=== PATIENT | female | born 1990 | race Caucasian/White ===

== ENCOUNTER 2018-01-14 09:58 | Inpatient (IN) | payer MEDICAID ==
[2018-01-14 11:10] VITALS: BP 130/93
[2018-01-14 11:14] LABS: URINE SOURCE CATH
[2018-01-14 11:22] LABS: URINE BILIRUBIN SMALL (NEGATIVE); URINE BLOOD MODERATE (NEGATIVE); URINE GLUCOSE (UA) NEGATIVE (NEGATIVE); URINE KETONE NEGATIVE (NEGATIVE); URINE LEUKOCYTE ESTERASE NEGATIVE (NEGATIVE); URINE MICROSCOPIC INDICATED? YES; URINE NITRATE POSITIVE (NEGATIVE); URINE PH 7.5 (4.6 - 8.0); URINE PROTEIN >=300 mg/dL (NEGATIVE); URINE UROBILINOGEN 0.2 E.U./dL (0.2 - 1.0)
[2018-01-14 11:23] LABS: ALB/GLOB RATIO 0.8 (1.0-1.8); ALBUMIN 3.5 gm/dL (3.7-5.3); ALKALINE PHOSPHATASE 216 U/L (34-104); AMYLASE SERUM 22 U/L (29-103); ANION GAP 10.6 (7.0-16.0); BILIRUBIN,TOTAL 1.7 mg/dL (0.3-1.0); BUN - UREA NITROGEN 33 mg/dL (7-25); CALCIUM SERUM 9.9 mg/dL (8.6-10.3); CARBON DIOXIDE 33.9 mEq/L (21.0-31.0); CHLORIDE 93 mEq/L (98-107); GFR AFRICAN-AMERICAN > 60.0 ml/min (>90); GFR NON AFRICAN-AMERICAN > 60.0 ml/min; GLUCOSE 208 mg/dL (70-105); LIPASE 6 U/L (11-82); POTASSIUM SERUM 4.5 mEq/L (3.5-5.1); SGOT 19 U/L (13-39); SGPT/ALT 19 U/L (7-52); SODIUM SERUM 133 mEq/L (136-145); TOTAL PROTEIN,SERUM 7.7 gm/dL (6.0-8.3)
[2018-01-14 11:38] LABS: AMPHETAMINE URINE NEGATIVE (NEGATIVE); BARBITURATES URINE NEGATIVE (NEGATIVE); BENZODIAZEPINES QUAL URINE NEGATIVE (NEGATIVE); CANNABINOID THC NEGATIVE (NEGATIVE); COCAINE METABOLITE QUAL URINE NEGATIVE (NEGATIVE); METHADONE URINE NEGATIVE (NEGATIVE); METHAMPHETAMINES QUAL URINE NEGATIVE (NEGATIVE); OPIATES (MORPHINE) QUAL. URINE NEGATIVE (NEGATIVE); PHENCYCLIDINE (PCP) URINE NEGATIVE (NEGATIVE); TRICYCLICS (TCA) QUAL. URINE NEGATIVE (NEGATIVE)
[2018-01-14] MEDS ORDERED: Sodium Chloride 0.9% 1,000 ML IV ONE (11:46)
[2018-01-14 11:50] LABS: URINE CLARITY HAZY (CLEAR)
[2018-01-14 11:51] LABS: URINE COLOR YELLOW; URINE RBC 0-2 /hpf (0-5)
[2018-01-14 11:52] LABS: URINE BACTERIA MODERATE /hpf (NONE SEEN); URINE EPITHELIAL CELLS MODERATE /lpf (FEW)
[2018-01-14 11:56] LABS: HEMATOCRIT 55.8 % (41.0-60); MEAN CELL VOLUME 86.7 fl (81-100); MEAN CORPUSCULAR HGB CONC 32.3 pg (28.0-36.0); MEAN PLATELET VOLUME 9.1 fl; PLATELET COUNT 203 Th/cmm (150-400); RED BLOOD COUNT 6.43 Mil/cmm (3.80-5.10); RED CELL DISTRIBUTION WIDTH 17.2 % (11.5-20.0); WHITE BLOOD COUNT 6.3 Th/cmm (4.8-10.8)
[2018-01-14] MEDS ORDERED: Piperacillin Sodium/Tazobact 3.375 gm Vial IV ONE (12:14)
--- NOTE | 2018-01-14 12:17 | ED Physician Chart ---
ED Chief Complaint/HPI - Patient Information Date Seen:: 01/14/18 Time Seen:: 10:59 Chief Complaint:: nausea, vomiting, diarrhea History of Present Illness:: nausea, vomiting, diarrhea in a diabetic female with a h/o EBSL and c.diff. Allergies:: Allergies Allergy/AdvReac Type Severity Reaction Status Date / Time No Known Allergies Allergy Verified 01/14/18 10:35 Vitals:: Vital Signs - 8 hr 01/14/18 01/14/18 01/14/18 10:59 11:09 11:10 Temp 98.7 F 98.7 F HR 85 85 RR 18 18 BP 130/93 130/93 130/93 O2 Sat % 99 95 Historian:: Patient, EMS, Medical Records Review:: Transfer documents Reviewed ED Review of Systems - Review of Systems General/Constitutional: No fever, No chills, No weight loss, No weakness, No diaphoresis, No edema, No loss of appetite Skin: No skin lesions, No rash, No bruising Head: No headache, No light-headedness Eyes: No loss of vision, No pain, No diplopia ENT: No earache, No nasal drainage, No sore throat, No tinnitus Neck: No neck pain, No swelling, No thyromegaly, No stiffness, No mass noted Cardio Vascular: No chest pain, No palpitations, No PND, No orthopnea, No edema Pulmonary: No SOB, No cough, No sputum, No wheezing GI: Nausea, Vomiting, Diarrhea G/U: No dysuria, No frequency, No hematuria Musculoskeletal: No bone or joint pain, No back pain, No muscle pain Endocrine: No polyuria, No polydipsia Psychiatric: No prior psych history, No depression, No anxiety, No suicidal ideation Hematopoietic: No bruising, No lymphadenopathy Allergic/Immuno: No urticaria, No angioedema Neurological: No syncope, No focal symptoms, Weakness, No paresthesia, No headache, No seizure, No dizziness, No confusion, No vertigo ED Past Medical History - Past Medical History Obtainable: Yes Past Medical History: DM, CAD Family Medical History - Family Member Mother Living Status: Still Living Hx Family Diabetes: Yes ED Physical Exam - Physical Examination General/Constitutional: Awake Other Gen/Cons comments:: pale and jaundiced appearing. Chronically ill appearing. Head: Atraumatic Eyes: Lids, conjuctiva normal, PERRL, EOMI Other Skin comments:: pale and jaundiced appearing. from mid tibia to feet (cool to the touch) and possibly faint mottling present. Hard to see secondary to dark skin color. R 4th toe with partial amputation (well healed) L knee with abrasion/scab--healing slowly. no s/s of infection slightly dry oral mucous membranes. ENMT: External ears, nose nl Neck: Nontender, No nuchal rigidity Respiratory: Nl effort/Exclusion, Clear to Auscultation Cardio Vascular: RRR GI: No tenderness/rebounding/guarding, No organomegaly, No hernia, Normal BS's, Nondistended, No mass/bruits, No McBurney tenderness : No CVA tenderness Extremities: Full ROM, normal strength in all extremities, No edema Other Extremities comments:: pale and jaundiced appearing. from mid tibia to feet (cool to the touch) and possibly faint mottling present. Hard to see secondary to dark skin color. R 4th toe with partial amputation (well healed) L knee with abrasion/scab--healing slowly. no s/s of infection Neuro/Psych: Alert/oriented, Normal motor strength, Judgement/insight normal, Mood normal, No focal deficits Misc: Normal back ED Labs/Radiology/EKG Results - Lab Results Results: Laboratory Tests 01/14/18 01/14/18 01/14/18 10:23 10:37 10:37 WBC RBC Hgb Hct MCV MCH MCHC Differential RDW Plt Count MPV Add Manual Diff Sodium Potassium Chloride Carbon Dioxide Anion Gap BUN Creatinine Est GFR ( Amer) Est GFR (Non-Af Amer) BUN/Creatinine Ratio Glucose POC Glucose 231 H Calcium Total Bilirubin AST ALT Alkaline Phosphatase Total Protein Albumin Globulin Albumin/Globulin Ratio Amylase Lipase Urine Source CATH Urine Color YELLOW Urine Clarity HAZY Urine pH 7.5 Ur Specific Divide 1.020 Urine Protein >=300 Urine Glucose (UA) NEGATIVE Urine Ketones NEGATIVE Urine Blood MODERATE H Urine Nitrate POSITIVE H Urine Bilirubin SMALL H Urine Urobilinogen 0.2 Ur Leukocyte Esterase NEGATIVE Urine RBC 0-2 Urine WBC 6-10 H Ur Epithelial Cells MODERATE Urine Bacteria MODERATE H Urine Test POC Ur Test Urine Opiates Screen NEGATIVE Urine Methadone Screen NEGATIVE Ur Barbiturates Screen NEGATIVE Ur Tricyclics Screen NEGATIVE Ur Phencyclidine Scrn NEGATIVE Amphetamines Screen NEGATIVE U Methamphetamines Scrn NEGATIVE U Benzodiazepines Scrn NEGATIVE U Cocaine Metab Screen NEGATIVE U Cannabinoids Screen NEGATIVE 01/14/18 01/14/18 01/14/18 10:55 10:55 11:16 WBC 6.3 RBC 6.43 H Hgb 18.0 Hct 55.8 MCV 86.7 MCH 28.0 MCHC Differential 32.3 RDW 17.2 Plt Count 203 MPV 9.1 Add Manual Diff YES Sodium 133 L Potassium 4.5 Chloride 93 L Carbon Dioxide 33.9 H Anion Gap 10.6 BUN 33 H Creatinine 1.0 Est GFR ( Amer) > 60.0 Est GFR (Non-Af Amer) > 60.0 BUN/Creatinine Ratio 33.0 Glucose 208 H POC Glucose Calcium 9.9 Total Bilirubin 1.7 H AST 19 ALT 19 Alkaline Phosphatase 216 H Total Protein 7.7 Albumin 3.5 L Globulin 4.2 Albumin/Globulin Ratio 0.8 L Amylase 22 L Lipase 6 L Urine Source Urine Color Urine Clarity Urine pH Ur Specific Divide Urine Protein Urine Glucose (UA) Urine Ketones Urine Blood Urine Nitrate Urine Bilirubin Urine Urobilinogen Ur Leukocyte Esterase Urine RBC Urine WBC Ur Epithelial Cells Urine Bacteria Urine Test POC Ur Test Negative Urine Opiates Screen Urine Methadone Screen Ur Barbiturates Screen Ur Tricyclics Screen Ur Phencyclidine Scrn Amphetamines Screen U Methamphetamines Scrn U Benzodiazepines Scrn U Cocaine Metab Screen U Cannabinoids Screen 01/14/18 11:19 WBC RBC Hgb Hct MCV MCH MCHC Differential RDW Plt Count MPV Add Manual Diff Sodium Potassium Chloride Carbon Dioxide Anion Gap BUN Creatinine Est GFR ( Amer) Est GFR (Non-Af Amer) BUN/Creatinine Ratio Glucose POC Glucose Calcium Total Bilirubin AST ALT Alkaline Phosphatase Total Protein Albumin Globulin Albumin/Globulin Ratio Amylase Lipase Urine Source Urine Color Urine Clarity Urine pH Ur Specific Divide Urine Protein Urine Glucose (UA) Urine Ketones Urine Blood Urine Nitrate Urine Bilirubin Urine Urobilinogen Ur Leukocyte Esterase Urine RBC Urine WBC Ur Epithelial Cells Urine Bacteria Urine Test NEGATIVE POC Ur Test Urine Opiates Screen Urine Methadone Screen Ur Barbiturates Screen Ur Tricyclics Screen Ur Phencyclidine Scrn Amphetamines Screen U Methamphetamines Scrn U Benzodiazepines Scrn U Cocaine Metab Screen U Cannabinoids Screen ED Assessment - Assessment General Assessment: EKG from 12:05:56 p.m. reveals normal sinus rhythm with a flipped t wave in AVL , AVR. CXR from my reading reveals cardiomegaly. ED Septic Shock - . Is Septic Shock (SBP<90, OR Lactate>4 mmol\L) present?: No - <6hrs of presentation: Vital Signs: Vital Signs - 8 hr 01/14/18 01/14/18 01/14/18 10:59 11:09 11:10 Temp 98.7 F 98.7 F HR 85 85 RR 18 18 BP 130/93 130/93 130/93 O2 Sat % 99 95 ED Reassessment (Disposition) - Reassessment Reassessment Condition:: Improved - Diagnosis Diagnosis:: Chronically ill appearing female diabetic urinary tract infection dehydration cardiomegaly with elevated BNP (suspected very low ejection fraction) peripheral vascular disease with slow healing superficial left knee wound and healed R 4th toe amputation site hypothyroidism (not presently on corrective medication) hyponatremia low chloride elevated bilirubin - Patient Disposition Discharge/Transfer:: Acute Care w/in this hosp Accepting Physician:: Dr. Christine Time Called:: 12:58 p.m. Admitted to:: Telemetry Condition at Disposition:: Stable, Improved
--- NOTE | 2018-01-14 13:00 | Diagnostic Imaging Report ---
Chest x-ray (single view, AP) HISTORY: Shortness of breath The heart is enlarged. A cardiac electrode lead wire projects over the right ventricle. No focal pulmonary processes. No hilar or mediastinal abnormalities. IMPRESSION: 1. No acute abnormalities 2. Cardiomegaly with electrode lead wire placement
[2018-01-14 13:21] LABS: BAND NEUTROPHILE 0 % (0-10); LYMPHOCYTE 10 % (20-50); MONOCYTE 5 % (2-10); NEUTROPHILS 85 % (40-80); PLATELET ESTIMATE ADEQUATE (NORMAL)
[2018-01-14] MEDS: Meropenem 500 MG in Sodium Chloride 0.9% 100 ML IV SCH (23:10)
[2018-01-15] MEDS ORDERED: INSULIN ASPART SLIDING SCALE 100 UNITS/ML UNIT SUBQ SCH
[2018-01-15 03:27] LABS: URINE SOURCE CLEAN C
[2018-01-15 03:31] LABS: URINE BILIRUBIN NEGATIVE (NEGATIVE); URINE BLOOD MODERATE (NEGATIVE); URINE GLUCOSE (UA) >=1000 mg/dL (NEGATIVE); URINE KETONE NEGATIVE (NEGATIVE); URINE LEUKOCYTE ESTERASE NEGATIVE (NEGATIVE); URINE MICROSCOPIC INDICATED? YES; URINE NITRATE NEGATIVE (NEGATIVE); URINE PH 6.5 (4.6 - 8.0); URINE PROTEIN >=300 mg/dL (NEGATIVE)
[2018-01-15 04:59] LABS: URINE CLARITY CLEAR (CLEAR); URINE COLOR YELLOW
[2018-01-15 05:00] LABS: URINE BACTERIA FEW /hpf (NONE SEEN); URINE EPITHELIAL CELLS FEW /lpf (FEW); URINE YEAST FEW /hpf (NONE SEEN)
[2018-01-15] MEDS: Meropenem 500 MG in Sodium Chloride 0.9% 100 ML IV SCH ×3 (06:21→22:21)
[2018-01-15 06:49] LABS: % EOSINOPHILS 1.5 % (0.0-5.0); % LYMPHOCYTES 12.6 % (20.0-50.0); % MONOCYTES 8.1 % (2.0-10.0); % NEUTROPHILS 76.8 % (40.0-80.0); BASOPHILE ABSOLUTE 0.1 Th/cumm (0-0.2); EOSINOPHILE ABSOLUTE 0.1 Th/cmm (0.1-0.4); HEMATOCRIT 51.4 % (41.0-60); HEMOGLOBIN 16.9 gm/dL (12-16); MEAN CELL VOLUME 85.7 fl (81-100); MEAN CORPUSCULAR HEMOGLOBIN 28.2 pg (27.0-31.0); MEAN CORPUSCULAR HGB CONC 32.9 pg (28.0-36.0); MEAN PLATELET VOLUME 8.9 fl; MONOCYTE ABSOLUTE 0.6 Th/cmm (0.3-1.0); NEUTROPHILE ABSOLUTE 5.8 Th/cmm (1.8-8.0); PLATELET COUNT 183 Th/cmm (150-400); RED BLOOD COUNT 5.99 Mil/cmm (3.80-5.10); RED CELL DISTRIBUTION WIDTH 17.1 % (11.5-20.0)
[2018-01-15 06:50] LABS: WHITE BLOOD COUNT 7.6 Th/cmm (4.8-10.8)
[2018-01-15 07:56] LABS: ALB/GLOB RATIO 0.8 (1.0-1.8); ALBUMIN 3.2 gm/dL (3.7-5.3); ALKALINE PHOSPHATASE 238 U/L (34-104); ANION GAP 20.1 (7.0-16.0); BILIRUBIN,TOTAL 1.5 mg/dL (0.3-1.0); BUN - UREA NITROGEN 35 mg/dL (7-25); CALCIUM SERUM 9.1 mg/dL (8.6-10.3); CARBON DIOXIDE 19.5 mEq/L (21.0-31.0); CHLORIDE 99 mEq/L (98-107); CREATININE - SERUM 1.2 mg/dL (0.6-1.2); GFR AFRICAN-AMERICAN > 60.0 ml/min (>90); GFR NON AFRICAN-AMERICAN 56.5 ml/min; POTASSIUM SERUM 4.6 mEq/L (3.5-5.1); SGOT 15 U/L (13-39); SGPT/ALT 16 U/L (7-52); SODIUM SERUM 134 mEq/L (136-145)
[2018-01-15] MEDS ORDERED: INSULIN HUMAN REGULAR 100 UNITS/ML UNIT SUBQ SCH (08:00)
[2018-01-15 08:12] LABS: GLUCOSE 290 mg/dL (70-105)
[2018-01-15] MEDS: Aspirin 81mg Chewable Tab PO SCH (09:21)
[2018-01-15] MEDS: INSULIN ASPART SLIDING SCALE 100 UNITS/ML UNIT SUBQ SCH ×3 (09:21→18:13)
[2018-01-15] MEDS: Pantoprazole 40 mg EC Tab PO SCH (09:23)
--- NOTE | 2018-01-15 11:45 | History & Physical ---
ADMIT DATE: 01/15/2018 CHIEF COMPLAINT: Nausea, vomiting and diarrhea. HISTORY OF PRESENT ILLNESS: This is a 27-year-old female who was admitted from [place] facility through the Emergency Room of [facility] due to nausea, vomiting, and diarrhea and altered level of consciousness. REVIEW OF SYSTEMS: The patient was seen at bedside. The patient asleep, refusing to answer questions. Otherwise, patient appears to be in no acute distress. SOCIAL HISTORY: The patient lives in a [place] [facility] [place] facility prior to hospitalization. FAMILY HISTORY: Unremarkable. PAST SURGICAL HISTORY: Unremarkable. PAST MEDICAL HISTORY: Significant for diabetes and hypertension. PHYSICAL EXAMINATION: VITAL SIGNS: Temperature 97, heart rate 93, blood pressure 105/51, respiration of 18, 97% on room air. HEENT: Head is atraumatic and normocephalic. Eyes: Bilateral conjunctivae are clear. Bilateral pupils are equally round and reactive. NECK: Supple. No JVD. CARDIOVASCULAR: S1 and S2, without murmur. PULMONARY: Clear to auscultation. GASTROINTESTINAL: Soft and nontender without guarding. Positive bowel sounds. MUSCULOSKELETAL: No clubbing. No cyanosis noted. ASSESSMENT: 1. Right lower lobe pneumonia. 2. History of Clostridium difficile. 3. Diabetes. PLAN: We will admit the patient inpatient. We will do medication reconciliation accordingly. We will monitor her blood tests and repeat blood test in the morning. Treatment plans were discussed with the patient's nurse. Treatment plans were discussed with Dr. Christine. JOB# [id number]
[2018-01-15] MEDS: D5-0.45NS 1,000 ML IV SCH (16:07)
[2018-01-16] MEDS: INSULIN ASPART SLIDING SCALE 100 UNITS/ML UNIT SUBQ SCH ×5 (00:19→23:51)
--- NOTE | 2018-01-16 01:00 | Consultation ---
DATE OF CONSULTATION: 01/14/2018 AGE: 27. SEX: Female. RACE: . REQUESTING PHYSICIAN: Dr. Christine. REASON FOR CONSULTATION: Elevated BUN and creatinine and some kidney dysfunction. HISTORY OF PRESENT ILLNESS: This patient has been brought in from [facility] because of reasons not clear, but some altered level of consciousness, "history of congestive heart failure," history of heart problem with the pacemaker reasons not known. Also, the history obtained by calling the mother from here, which was not available because the patient is not arousable and does not give any history, that the patient had been using drugs about 5 years ago and maybe longer, type of drugs is not very clearly known, but she was definitely using crack and some other drugs. The patient has a child about 2 years old. The patient does have much more tattooed things on the arms and hands, tried to arouse her at present, not able to do it. The patient is sound asleep could not wake her up, she may be a little bit obese. At present there is no edema noticed. Jugular venous pressure clinically, is not raised. PHYSICAL EXAMINATION: VITAL SIGNS: Temperature is 97.0 degrees Fahrenheit, blood pressure 105/51, heart rate 93, O2 saturation 97. GENERAL: The patient is not on any oxygen. CHEST: Reveals good air entry bilaterally. CARDIOVASCULAR: Heart sounds, S1, S2 normally heard. No S3 or S4 noticed. ABDOMEN: Rather large much more difficult to examine any further. No other significant findings noticed on physical examination, which would ascertain anything else. The patient came to the Emergency Room yesterday, was started on meropenem for UTI, which probably she had because of the fact that it was positive for urine nitrites. The patient was checked for drugs in the urine, which was negative. The patient was shouting yesterday night, was given some Ativan and maybe that is the fact that she is not arousable at present. Very significant findings on the chemistries yesterday were patient's electrolytes were sodium 133, potassium 4.5, chloride 93, CO2 content 33.9, BUN 33, creatinine 1.0, calcium 9.9, total bilirubin 1.7, albumin 3.5, globulin 4.2. TSH 7.26. The patient's hemoglobin yesterday was 18 grams percent with WBC 6.3. Today's hemoglobin reveals 16.9 with a WBC count of 7.6. The patient's medicines reviewed. The patient is on multiple diuretics reasons not known which include Lasix, Bumex and Aldactone need to be discontinued. Otherwise, the patient would get much more decrease in water and concentrated hemoglobin, which can give rise to other problems. From renal point of view there is not much to be done at least at the present time except discontinuing all these 3 diuretics and to give some more IV fluids. Clinically, at present, the patient is not in congestive heart failure in spite of the fact that BNP is high, it could be due to other reasons, need to evaluate further clinically both by menagerie superintendent and the need for other management. More history need to be also obtained. [facility]# [id number]
--- NOTE | 2018-01-16 01:56 | Consultation ---
DATE OF CONSULTATION: 01/15/[address] Christine. 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 The patient also had a cardiopulmonary arrest with AICD placement. The patient at the present time is complaining of nausea, vomiting, and diarrhea. The patient was found to have a right lower lobe pneumonia and hence, the patient is admitted. PAST MEDICAL HISTORY: Congestive heart failure, systolic dysfunction, nonischemic cardiomyopathy, left ventricular thrombus, cardiac arrest with AICD placement, deep venous thrombosis, methamphetamine addict, anxiety, and diabetes mellitus type 2. FAMILY HISTORY: Unremarkable. SOCIAL HISTORY: No history of smoking, alcohol abuse. ALLERGIES: No known allergies. SOCIAL HISTORY: The patient is methamphetamine addict. PHYSICAL EXAMINATION: VITAL SIGNS: Blood pressure 110/70, pulse 80 and irregular, and respirations 28. HEAD: Normocephalic. No lumps or bumps. EYES: Pupils equal, reactive to light. Fundi show AV nicking, sclerae white, conjunctivae pink. NECK: Carotid 2+. Normal upstroke. JVD 10 cm above sternal angle. Thyroid not palpable. Lymph nodes not palpable. CHEST: Shows increased AP diameter. No kyphosis, scoliosis. LUNGS: Bilateral rales. Decreased breath sounds both the bases. HEART: PMI sixth intercostal space with lateral to midclavicular line. S1, S2, S3, S4, soft systolic murmur. ABDOMEN: Soft. Liver, spleen not palpable. No organomegaly. Bowel sounds active. Hepatojugular reflux positive. NEUROLOGIC: Unremarkable. EXTREMITIES: Peripheral pulses 1+. No pedal edema. CLINICAL IMPRESSION: Congestive heart failure, systolic dysfunction, acute on chronic; nonischemic cardiomyopathy; right lower lobe pneumonia; left ventricular thrombus; cardiac arrest, status post AICD placement; deep venous thrombosis; methamphetamine addict; anxiety; and diabetes mellitus type 2. PLAN: At the present time, we will continue the patient on IV antibiotics, diuretics preload afterload reduction, Also get an echocardiogram. The patient's last echocardiogram showed ejection fraction 10%-15%. JOB# [id number]
--- NOTE | 2018-01-16 02:44 | Consultation ---
DATE OF CONSULTATION: 01/14/2018 IDENTIFYING INFORMATION: The patient is a 27-year-old female. CHIEF COMPLAINT: I was asked to see as she has a history of bipolar disorder. HISTORY OF PRESENT ILLNESS: The patient was admitted from a halfway facility through Emergency Room at [facility] because of nausea, vomiting, diarrhea, and altered level of consciousness. The patient was asleep, refusing to answer questions. The patient apparently was living in a halfway facility; however, she was not a very good historian. She told me that she is single, never , but has one child and she misses her baby. She was crying when I talked to her, unable to tell me why she was in a nursing facility. She reports that she lives with her mother. She reports that she has been depressed for a week. She misses her baby. She reports sleep and appetite varies. She does not know why she is here. The patient also has lower lobe pneumonia with Clostridium difficile and diabetes. The patient denies substance abuse. PAST PSYCHIATRIC HISTORY: The patient denies prior psychiatric treatment; however, she is not a good historian. According to her history, she has a history of bipolar disorder. MEDICAL HISTORY: She has no known drug allergy. The patient is admitted because of nausea, vomiting, diarrhea, and pneumonia. MEDICATIONS: The patient is on insulin, Lasix, aspirin, Bumex, Coreg, clonidine as needed, lisinopril, and Ativan for agitation. FAMILY AND SOCIAL HISTORY: The patient is single, never , has one boy, 1-year of age; however, that is an unreliable information as she reports she misses her son; however, she lives in a nursing facility. She does not realize she lives in a nursing facility. Denies any family psychotic disorder, suicide or substance abuse. She reports she works at [employer]. MENTAL STATUS EXAMINATION: The patient is appropriately dressed, not very well groomed. She was crying. She was uncooperative. She kept talking about feeling depressed for the last week missing the baby. Her sleep and appetite varies. She denies any visual hallucinations. She denies any intent to harm herself. She reports she never tried to harm herself. Denies any paranoia. Denies any intent to harm anyone. Well, first she told me she was 27, when asked again, she said 23, so obviously she was confused. Insight and judgment are questionable. IMPRESSION: Rule out delirium secondary to her medical condition versus psychosis, not otherwise specified versus bipolar disorder. PLAN: 1. I would recommend to start the patient on Abilify to help with her confusion and psychosis. The patient obviously needs followup with her psychiatrist upon discharge. Thank you very much for allowing me to participate in the care of this most interesting lady. [facility]# [id number]
[2018-01-16 06:16] LABS: % BASOPHILS 3.5 % (0.0-2.0); % EOSINOPHILS 2.7 % (0.0-5.0); % LYMPHOCYTES 13.9 % (20.0-50.0); % MONOCYTES 7.6 % (2.0-10.0); % NEUTROPHILS 72.3 % (40.0-80.0); BASOPHILE ABSOLUTE 0.3 Th/cumm (0-0.2); EOSINOPHILE ABSOLUTE 0.2 Th/cmm (0.1-0.4); HEMATOCRIT 49.8 % (41.0-60); HEMOGLOBIN 15.6 gm/dL (12-16); MEAN CELL VOLUME 86.9 fl (81-100); MEAN CORPUSCULAR HEMOGLOBIN 27.2 pg (27.0-31.0); MEAN CORPUSCULAR HGB CONC 31.3 pg (28.0-36.0); MEAN PLATELET VOLUME 8.2 fl; MONOCYTE ABSOLUTE 0.5 Th/cmm (0.3-1.0); NEUTROPHILE ABSOLUTE 5.2 Th/cmm (1.8-8.0); PLATELET COUNT 183 Th/cmm (150-400); RED BLOOD COUNT 5.74 Mil/cmm (3.80-5.10); RED CELL DISTRIBUTION WIDTH 17.1 % (11.5-20.0); WHITE BLOOD COUNT 7.2 Th/cmm (4.8-10.8)
[2018-01-16] MEDS: Meropenem 500 MG in Sodium Chloride 0.9% 100 ML IV SCH ×3 (06:23→23:07)
[2018-01-16 06:28] LABS: ALB/GLOB RATIO 0.9 (1.0-1.8); ALBUMIN 2.9 gm/dL (3.7-5.3); ALKALINE PHOSPHATASE 194 U/L (34-104); ANION GAP 9.6 (7.0-16.0); BILIRUBIN,TOTAL 1.3 mg/dL (0.3-1.0); BUN - UREA NITROGEN 40 mg/dL (7-25); CALCIUM SERUM 8.7 mg/dL (8.6-10.3); CARBON DIOXIDE 27.9 mEq/L (21.0-31.0); CHLORIDE 101 mEq/L (98-107); CREATININE - SERUM 1.1 mg/dL (0.6-1.2); GFR AFRICAN-AMERICAN > 60.0 ml/min (>90); GFR NON AFRICAN-AMERICAN > 60.0 ml/min; GLUCOSE 134 mg/dL (70-105); POTASSIUM SERUM 4.5 mEq/L (3.5-5.1); SGOT 14 U/L (13-39); SGPT/ALT 17 U/L (7-52); SODIUM SERUM 134 mEq/L (136-145)
[2018-01-16] MEDS: Aspirin 81mg Chewable Tab PO SCH (10:06)
[2018-01-16] MEDS: Pantoprazole 40 mg EC Tab PO SCH (10:06)
--- NOTE | 2018-01-16 12:14 | Internal Medicine Prog Note ---
Internal Medicine Subjective - Subjective Patient is:: awake, other (no distress) Patient Complaints of:: other (nausea, dirrhea ) Internal Medicine Objective - Results Result Diagrams: 01/16/18 06:05 01/16/18 06:05 Recent Labs: Laboratory Last Values WBC 7.2 Th/cmm (4.8-10.8) 01/16/18 06:05 RBC 5.74 Mil/cmm (3.80-5.10) H 01/16/18 06:05 Hgb 15.6 gm/dL (12-16) 01/16/18 06:05 Hct 49.8 % (41.0-60) 01/16/18 06:05 MCV 86.9 fl (81-100) 01/16/18 06:05 MCH 27.2 pg (27.0-31.0) 01/16/18 06:05 MCHC Differential 31.3 pg (28.0-36.0) 01/16/18 06:05 RDW 17.1 % (11.5-20.0) 01/16/18 06:05 Plt Count 183 Th/cmm (150-400) 01/16/18 06:05 MPV 8.2 fl 01/16/18 06:05 Add Manual Diff YES 01/14/18 10:55 Neutrophils % 72.3 % (40.0-80.0) 01/16/18 06:05 Band Neutrophils % 0 % (0-10) 01/14/18 10:55 Lymphocytes % 13.9 % (20.0-50.0) L 01/16/18 06:05 Monocytes % 7.6 % (2.0-10.0) 01/16/18 06:05 Eosinophils % 2.7 % (0.0-5.0) 01/16/18 06:05 Basophils % 3.5 % (0.0-2.0) H 01/16/18 06:05 Neutrophils (Manual) 85 % (40-80) H 01/14/18 10:55 Lymphocytes 10 % (20-50) L 01/14/18 10:55 Monocytes 5 % (2-10) 01/14/18 10:55 Platelet Estimate ADEQUATE (NORMAL) 01/14/18 10:55 Sodium 134 mEq/L (136-145) L 01/16/18 06:05 Potassium 4.5 mEq/L (3.5-5.1) 01/16/18 06:05 Chloride 101 mEq/L (98-107) 01/16/18 06:05 Carbon Dioxide 27.9 mEq/L (21.0-31.0) 01/16/18 06:05 Anion Gap 9.6 (7.0-16.0) 01/16/18 06:05 BUN 40 mg/dL (7-25) H 01/16/18 06:05 Creatinine 1.1 mg/dL (0.6-1.2) 01/16/18 06:05 Est GFR ( Amer) > 60.0 ml/min (>90) 01/16/18 06:05 Est GFR (Non-Af Amer) > 60.0 ml/min 01/16/18 06:05 BUN/Creatinine Ratio 36.4 01/16/18 06:05 Glucose 134 mg/dL (70-105) H 01/16/18 06:05 POC Glucose 351 MG/DL (70 - 105) H 01/16/18 11:53 Whole Bld Lactic Acid 1.78 mmol/L (0.60-1.99) 01/14/18 10:55 Calcium 8.7 mg/dL (8.6-10.3) 01/16/18 06:05 Total Bilirubin 1.3 mg/dL (0.3-1.0) H 01/16/18 06:05 AST 14 U/L (13-39) 01/16/18 06:05 ALT 17 U/L (7-52) 01/16/18 06:05 Alkaline Phosphatase 194 U/L (34-104) H 01/16/18 06:05 Troponin I 0.02 ng/mL (0.01-0.05) 01/14/18 10:55 B-Natriuretic Peptide 1660.0 pg/mL (5.0-100.0) H 01/16/18 08:12 Total Protein 6.0 gm/dL (6.0-8.3) 01/16/18 06:05 Albumin 2.9 gm/dL (3.7-5.3) L 01/16/18 06:05 Globulin 3.1 gm/dL 01/16/18 06:05 Albumin/Globulin Ratio 0.9 (1.0-1.8) L 01/16/18 06:05 Amylase 22 U/L (29-103) L 01/14/18 10:55 Lipase 6 U/L (11-82) L 01/14/18 10:55 TSH 7.26 uIU/ml (0.34-5.60) H 01/14/18 10:55 Urine Source CLEAN C 01/15/18 02:55 Urine Color YELLOW 01/15/18 02:55 Urine Clarity CLEAR (CLEAR) 01/15/18 02:55 Urine pH 6.5 (4.6 - 8.0) 01/15/18 02:55 Ur Specific [place] 1.020 (1.005-1.030) 01/15/18 02:55 Urine Protein >=300 mg/dL (NEGATIVE) 01/15/18 02:55 Urine Glucose (UA) >=1000 mg/dL (NEGATIVE) H 01/15/18 02:55 Urine Ketones NEGATIVE mg/dL (NEGATIVE) 01/15/18 02:55 Urine Blood MODERATE (NEGATIVE) H 01/15/18 02:55 Urine Nitrate NEGATIVE (NEGATIVE) 01/15/18 02:55 Urine Bilirubin NEGATIVE (NEGATIVE) 01/15/18 02:55 Urine Urobilinogen 1.0 E.U./dL (0.2 - 1.0) 01/15/18 02:55 Ur Leukocyte Esterase NEGATIVE (NEGATIVE) 01/15/18 02:55 Urine RBC 5-10 /hpf (0-5) H 01/15/18 02:55 Urine WBC 2-5 /hpf (0-5) 01/15/18 02:55 Ur Epithelial Cells FEW /lpf (FEW) 01/15/18 02:55 Urine Bacteria FEW /hpf (NONE SEEN) 01/15/18 02:55 Urine Yeast FEW /hpf (NONE SEEN) H 01/15/18 02:55 Urine Test NEGATIVE 01/14/18 11:19 POC Ur Test Negative 01/14/18 11:16 Urine Opiates Screen NEGATIVE (NEGATIVE) 01/14/18 10:37 Urine Methadone Screen NEGATIVE (NEGATIVE) 01/14/18 10:37 Ur Barbiturates Screen NEGATIVE (NEGATIVE) 01/14/18 10:37 Ur Tricyclics Screen NEGATIVE (NEGATIVE) 01/14/18 10:37 Ur Phencyclidine Scrn NEGATIVE (NEGATIVE) 01/14/18 10:37 Amphetamines Screen NEGATIVE (NEGATIVE) 01/14/18 10:37 U Methamphetamines Scrn NEGATIVE (NEGATIVE) 01/14/18 10:37 U Benzodiazepines Scrn NEGATIVE (NEGATIVE) 01/14/18 10:37 U Cocaine Metab Screen NEGATIVE (NEGATIVE) 01/14/18 10:37 U Cannabinoids Screen NEGATIVE (NEGATIVE) 01/14/18 10:37 - Physical Exam Vitals and I&O: Vital Signs Temp 96.7 F 01/16/18 11:38 Pulse 93 01/16/18 11:38 Resp 18 01/16/18 12:10 BP 133/100 01/16/18 11:38 Pulse Ox 97 01/16/18 11:38 Intake & Output 01/15/18 01/16/18 01/16/18 18:59 06:59 18:59 Intake Total 200 1200 Balance 200 1200 Weight (lbs) 66.877 kg Intake: Intake, IV Amount 200 100 Meropenem 500 mg In 200 100 Sodium Chloride 0.9% 100 ml @ 100 mls/hr IV Q8H [facility] Rx#:[id number] Oral 1100 Other: # Voids 3 # Bowel Movements 1 Stool Characteristics Soft Soft Soft Formed Formed Formed Weight Source Bedscale Active Medications: Current Medications Acetaminophen (Tylenol) 650 mg PO Q4H PRN PRN Reason: Pain (Mild) Stop: 03/16/18 13:03 Last Admin: 01/16/18 07:51 Dose: 650 mg Aripiprazole (Abilify) 2.5 mg PO DAILY [facility]; Protocol Stop: 03/17/18 08:59 Last Admin: 01/16/18 10:05 Dose: 2.5 mg Aspirin (Aspirin Chewable) 81 mg PO DAILY [facility] Stop: 03/16/18 08:59 Last Admin: 01/16/18 10:06 Dose: 81 mg Carvedilol (Coreg) 3.125 mg PO BID [facility] Stop: 03/16/18 08:59 Last Admin: 01/16/18 10:06 Dose: 3.125 mg Meropenem 500 mg/ Sodium (Chloride) 100 mls @ 100 mls/hr IV Q8H [facility] Stop: 03/15/18 22:59 Last Admin: 01/16/18 06:23 Dose: 100 mls/hr Dextrose/Sodium Chloride (D5-0.45ns) 1,000 mls @ 50 mls/hr IV .Q20H [facility] Stop: 03/16/18 12:01 Last Admin: 01/15/18 16:07 Dose: 50 mls/hr Insulin Aspart (Novolog Insulin Sliding Scale) 0 units SUBQ Q6HR [facility]; Protocol Stop: 03/16/18 05:59 Last Admin: 01/16/18 11:56 Dose: 15 units Lisinopril (Zestril) 5 mg PO DAILY [facility] Stop: 03/16/18 08:59 Last Admin: 01/16/18 10:05 Dose: 5 mg Lorazepam (Ativan) 1 mg IVP Q4HR PRN; Protocol PRN Reason: Agitation Stop: 03/15/18 18:54 Last Admin: 01/16/18 11:29 Dose: 1 mg Pantoprazole Sodium (Protonix) 40 mg PO DAILY [facility] Stop: 03/16/18 08:59 Last Admin: 01/16/18 10:06 Dose: 40 mg Zolpidem Tartrate (Ambien) 5 mg PO HS PRN PRN Reason: Insomnia Stop: 03/15/18 18:54 Last Admin: 01/15/18 22:23 Dose: 5 mg General: weak, alert HEENT: NC/AT Neck: Supple Lungs: congested, rales, no CTAB Cardiovascular: Normal S1, Normal S2 Abdomen: soft, non-tender Extremities: clear Neurological: no change Internal Medicine Assmt/Plan - Assessment Assessment: pneumonia rll h/p clostridium dm - Plan Plan: as per order sheet
--- NOTE | 2018-01-16 14:16 | Progress Notes ---
DATE: 01/16/2018 SUBJECTIVE: Case was discussed with staff of the patient and reviewed records. The patient was crying uncontrollably today. She was unable to answer questions. I tried to get any information from her about why she was in a nursing facility. She could not answered me. She did not know where she was, while she is here she kept crying and she tell me why she was crying. She does have Ativan as needed, which will be given. I will be increasing her Abilify to [address] Black will follow up with her tomorrow. Thank you very much for allowing me to participate in the care of this most interesting lady. JOB# [id number]
[2018-01-16] MEDS: D5-0.45NS 1,000 ML IV SCH (17:27)
[2018-01-17 04:59] LABS: % BASOPHILS 3.6 % (0.0-2.0); % EOSINOPHILS 2.6 % (0.0-5.0); % LYMPHOCYTES 10.7 % (20.0-50.0); % MONOCYTES 5.7 % (2.0-10.0); % NEUTROPHILS 77.4 % (40.0-80.0); BASOPHILE ABSOLUTE 0.3 Th/cumm (0-0.2); EOSINOPHILE ABSOLUTE 0.2 Th/cmm (0.1-0.4); HEMATOCRIT 50.4 % (41.0-60); HEMOGLOBIN 16.2 gm/dL (12-16); LYMPHOCYTE ABSOLUTE 0.9 Th/cmm (1.5-3.0); MEAN CELL VOLUME 85.9 fl (81-100); MEAN CORPUSCULAR HEMOGLOBIN 27.7 pg (27.0-31.0); MEAN CORPUSCULAR HGB CONC 32.2 pg (28.0-36.0); MONOCYTE ABSOLUTE 0.5 Th/cmm (0.3-1.0); NEUTROPHILE ABSOLUTE 6.5 Th/cmm (1.8-8.0); PLATELET COUNT 180 Th/cmm (150-400); RED BLOOD COUNT 5.86 Mil/cmm (3.80-5.10); RED CELL DISTRIBUTION WIDTH 17.1 % (11.5-20.0); WHITE BLOOD COUNT 8.4 Th/cmm (4.8-10.8)
[2018-01-17 05:34] LABS: ALBUMIN 3.3 gm/dL (3.7-5.3); ALKALINE PHOSPHATASE 219 U/L (34-104); ANION GAP 11.5 (7.0-16.0); BILIRUBIN,TOTAL 1.5 mg/dL (0.3-1.0); BUN - UREA NITROGEN 39 mg/dL (7-25); CHLORIDE 97 mEq/L (98-107); CREATININE - SERUM 1.1 mg/dL (0.6-1.2); GFR AFRICAN-AMERICAN > 60.0 ml/min (>90); GFR NON AFRICAN-AMERICAN > 60.0 ml/min; GLUCOSE 126 mg/dL (70-105); POTASSIUM SERUM 4.5 mEq/L (3.5-5.1); SGOT 18 U/L (13-39); SGPT/ALT 18 U/L (7-52); SODIUM SERUM 131 mEq/L (136-145); TOTAL PROTEIN,SERUM 6.6 gm/dL (6.0-8.3)
[2018-01-17] MEDS: INSULIN ASPART SLIDING SCALE 100 UNITS/ML UNIT SUBQ SCH ×3 (06:06→17:30)
[2018-01-17] MEDS: Meropenem 500 MG in Sodium Chloride 0.9% 100 ML IV SCH (06:09)
[2018-01-17] MEDS: Pantoprazole 40 mg EC Tab PO SCH (10:47)
[2018-01-17] MEDS: Aspirin 81mg Chewable Tab PO SCH (10:47)
--- NOTE | 2018-01-17 13:13 | Consultation ---
Consult Note - Consult Note Service Date: 01/17/18 Referring Physician: Debora Christine Consult Note: PHYSICIAN Consultation Note: Date of Admission: 01/14/18 Purpose of Consultation: UTI. Chief Complaint: Patient WEN SCRUGGS was admitted to [facility] Telemetry with UTI, FTT, CARDIOMEGALY. History of Present Illness: 27-year-old female with history of CP arrest, cardiomyopathy with low Ef ( 10-15%), s/p PEA, AICD placement was diagnosed to have ESBL E coli infection. She was was treated at the [facility] and discharged to [facility]. Stooll for c diff was checked and C diff toxin PCr came positive. She was transferred to the [facility] ED for further treatment plan. ID consult was called and i was informed of ESBl E coli UTI. I did start the patient on Meropenem. Urine cultures are repeated and came negative. Patient denies any dysuria, denies any fever, chills, nausea , vomiting and diarrhea. Past Medical History: DMT2, CP arrest, cardiomyopathy with low Ef ( 10-15%), s/ p PEA, AICD placement ( at [facility]), Hypothyropidismm, CHF. Diagnoses HYPOTHYROIDISM, UNSPECIFIED (01/14/18) TYPE 2 DIABETES MELLITUS WITHOUT COMPLICATIONS (01/14/18) DEHYDRATION (01/14/18) HYPO-OSMOLALITY AND HYPONATREMIA (01/14/18) OTH DISORDERS OF ELECTROLYTE AND FLUID BALANCE, NEC (01/14/18) OTH STIMULANT USE, UNSP WITH UNSP STIMULANT-INDUCED DISORDER (01/14/18) CARDIOMYOPATHY, UNSPECIFIED (01/14/18) ACUTE ON CHRONIC SYSTOLIC (CONGESTIVE) HEART FAILURE (01/14/18) PNEUMONIA, UNSPECIFIED ORGANISM (01/14/18) URINARY TRACT INFECTION, SITE NOT SPECIFIED (01/14/18) WEAKNESS (01/14/18) PERSONAL HISTORY OF OTHER INFECTIOUS AND PARASITIC DISEASES (01/14/18) PERSONAL HISTORY OF SUDDEN CARDIAC ARREST (01/14/18) PRESENCE OF AUTOMATIC (IMPLANTABLE) CARDIAC DEFIBRILLATOR (01/14/18) Allergies Allergy/AdvReac Type Severity Reaction Status Date / Time No Known Allergies Allergy Verified 01/14/18 10:35 Vital Signs Temp 97.5 F 01/17/18 11:53 Pulse 83 01/17/18 11:53 Resp 18 01/17/18 11:53 BP 138/76 01/17/18 11:53 Pulse Ox 98 01/17/18 11:53 Intake & Output 01/16/18 01/17/18 01/17/18 18:59 06:59 18:59 Intake Total 1200 340 100 Balance 1200 340 100 Weight (lbs) 66.877 kg Intake: Intake, IV Amount 1200 100 100 D5-0.45NS 1,000 ml @ 50 1000 mls/hr IV .Q20H [facility] Rx#: [id number] Meropenem 500 mg In 200 100 100 Sodium Chloride 0.9% 100 ml @ 100 mls/hr IV Q8H [facility] Rx#:[id number] Oral 240 Other: Stool Characteristics Soft Soft Formed Formed Weight Source [facility] Laboratory Results - last 24 hr 01/16/18 01/16/18 01/17/18 17:02 23:14 04:50 WBC 8.4 RBC 5.86 H Hgb 16.2 Hct 50.4 MCV 85.9 MCH 27.7 MCHC Differential 32.2 RDW 17.1 Plt Count 180 MPV 8.0 Neutrophils % 77.4 Lymphocytes % 10.7 L Monocytes % 5.7 Eosinophils % 2.6 Basophils % 3.6 H Sodium Potassium Chloride Carbon Dioxide Anion Gap BUN Creatinine Est GFR ( Amer) Est GFR (Non-Af Amer) BUN/Creatinine Ratio Glucose POC Glucose 314 H 199 H Calcium Total Bilirubin AST ALT Alkaline Phosphatase Total Protein Albumin Globulin Albumin/Globulin Ratio 01/17/18 01/17/18 01/17/18 04:50 05:20 12:10 WBC RBC Hgb Hct MCV MCH MCHC Differential RDW Plt Count MPV Neutrophils % Lymphocytes % Monocytes % Eosinophils % Basophils % Sodium 131 L Potassium 4.5 Chloride 97 L Carbon Dioxide 27.0 Anion Gap 11.5 BUN 39 H Creatinine 1.1 Est GFR ( Amer) > 60.0 Est GFR (Non-Af Amer) > 60.0 BUN/Creatinine Ratio 35.5 Glucose 126 H POC Glucose 149 H 198 H Calcium 9.0 Total Bilirubin 1.5 H AST 18 ALT 18 Alkaline Phosphatase 219 H Total Protein 6.6 Albumin 3.3 L Globulin 3.3 Albumin/Globulin Ratio 1.0 Home Medication Medication Instructions Recorded Type Aspirin [Aspirin Chewable] 81 mg PO DAILY 01/14/18 History Bumetanide [Bumex] 1 mg PO BID 01/14/18 History Carvedilol [Coreg] 3.125 mg PO BID 01/14/18 History Clonidine HCl [Catapres] 0.1 mg PO Q6H PRN 01/14/18 History Insulin Regular, Human [Humulin R] See Protocol SQ TIDWM 01/14/18 History Lisinopril 5 mg PO DAILY 01/14/18 History Nitrofurantoin Monohydrate 100 mg PO BID 01/14/18 History [Macrobid*] Pantoprazole Sodium 40 mg PO DAILY 01/14/18 History Saccharomyces Boulardii [Florastor] 250 mg PO DAILY 01/14/18 History Spironolactone [Aldactone] 25 mg PO BID 01/14/18 History Zolpidem Tartrate 5 mg PO HS PRN 01/14/18 History metroNIDAZOLE [Flagyl] 500 mg PO TID 01/14/18 History Current Medications Generic Name Dose Route Start Last Admin Trade Name Freq PRN Reason Stop Dose Admin Acetaminophen 650 mg 01/15/18 13:04 01/16/18 20:03 Tylenol PO 03/16/18 13:03 650 mg Q4H PRN Administration Pain (Mild) Aripiprazole 5 mg 01/17/18 09:00 01/17/18 10:47 Abilify PO 03/18/18 08:59 5 mg DAILY [facility] Administration Protocol Aspirin 81 mg 01/15/18 09:00 01/17/18 10:47 Aspirin Chewable PO 03/16/18 08:59 81 mg DAILY [facility] Administration Carvedilol 3.125 mg 01/15/18 09:00 01/17/18 10:46 Coreg PO 03/16/18 08:59 3.125 mg BID [facility] Administration Meropenem 500 mg/ Sodium 100 mls @ 100 mls/hr 01/14/18 23:00 01/17/18 07:09 Chloride IV 03/15/18 22:59 Infused Q8H [facility] Infusion Dextrose/Sodium Chloride 1,000 mls @ 50 mls/hr 01/15/18 12:02 01/16/18 17:27 D5-0.45ns IV 03/16/18 12:01 50 mls/hr .Q20H [facility] Administration Insulin Aspart 0 units 01/15/18 06:00 01/17/18 12:17 Novolog Insulin Sliding Scale SUBQ 03/16/18 05:59 4 units Q6HR [facility] Administration Protocol Lactobacillus Rhamnosus 1 each 01/17/18 14:00 Culturelle 15b PO 03/18/18 13:59 DAILY [facility] Lisinopril 5 mg 01/15/18 09:00 01/17/18 10:47 Zestril PO 03/16/18 08:59 5 mg DAILY [facility] Administration Lorazepam 1 mg 01/14/18 18:55 01/17/18 00:38 Ativan IVP 03/15/18 18:54 1 mg Q4HR PRN Administration Agitation Protocol Pantoprazole Sodium 40 mg 01/15/18 09:00 01/17/18 10:47 Protonix PO 03/16/18 08:59 40 mg DAILY [facility] Administration Zolpidem Tartrate 5 mg 01/14/18 18:55 01/16/18 20:04 Ambien PO 03/15/18 18:54 5 mg HS PRN Administration Insomnia Review of Systems: A 12 point ROS was reviewed with the pertinent positive and negatives noted in the HPI. Social History Smoking Status Never smoker Drug Use No Alcohol Use No Family Medical History Family Medical History Start: 01/14/18 14: 45 Freq: ONCE Status: Active Protocol: Document 01/14/18 14:45 AIXA (Rec: 01/14/18 17:50 YPISRAEL [id number]) Family Medical History Mother History Unknown Yes Physical Exam: General: Comfortable, not in any acute distress. WN WD. HEENT: Head: NC NT. ORAL CAVITY: Moist, pink tongue. EYES: No pallor, no icterus , pupill PERRLA. EOMI. Neck: Supple, no JVD, no carotid bruit. No use of accessory neck muscle use. No lymphadenopathy. Cardio: S1 and S2 WNL. Respiratory: CTAP. Abdominal: Soft NT ND BS present. NO hepatosplenomegaly. Genital/Urinary: Deferred Extremities: NCCE. therar wuperficial wounds on the left elbow with erythema, left knee with erythema, right knee without erythema. Neurological: Alert awake, oriented x3, no focal weakness. Assessment: 1. C diff colitis, there is no diarrhea. 2, History of URI with ESBL positive organism. Urine cultures are negative. 3. Cellulitis and wound on the left elbow and left knee. 4. cardiomyopathy, with low EF, AICD placement,. 5. history of CP arrest. 6. DM T2. 7. hypothyroidism. Plan: DC meropenem. DC isolation. Continue flagyl for 10 days. start bactrim DS for cellulitis. wound care. Thank you Dr Christine for involvingm in taking care of this patient. Signed, Aman Martinez M.D. [id number]
[2018-01-17] MEDS: Lactobacillus Rhamnosus GG 15 Billion CFU CAP.SPRINK PO SCH (13:45)
--- NOTE | 2018-01-17 15:58 | Internal Medicine Prog Note ---
Internal Medicine Subjective - Subjective Patient is:: awake, other (no distress) Patient Complaints of:: other (nausea, dirrhea ) Internal Medicine Objective - Results Result Diagrams: 01/17/18 04:50 01/17/18 04:50 Recent Labs: Laboratory Last Values WBC 8.4 Th/cmm (4.8-10.8) 01/17/18 04:50 RBC 5.86 Mil/cmm (3.80-5.10) H 01/17/18 04:50 Hgb 16.2 gm/dL (12-16) 01/17/18 04:50 Hct 50.4 % (41.0-60) 01/17/18 04:50 MCV 85.9 fl (81-100) 01/17/18 04:50 MCH 27.7 pg (27.0-31.0) 01/17/18 04:50 MCHC Differential 32.2 pg (28.0-36.0) 01/17/18 04:50 RDW 17.1 % (11.5-20.0) 01/17/18 04:50 Plt Count 180 Th/cmm (150-400) 01/17/18 04:50 MPV 8.0 fl 01/17/18 04:50 Add Manual Diff YES 01/14/18 10:55 Neutrophils % 77.4 % (40.0-80.0) 01/17/18 04:50 Band Neutrophils % 0 % (0-10) 01/14/18 10:55 Lymphocytes % 10.7 % (20.0-50.0) L 01/17/18 04:50 Monocytes % 5.7 % (2.0-10.0) 01/17/18 04:50 Eosinophils % 2.6 % (0.0-5.0) 01/17/18 04:50 Basophils % 3.6 % (0.0-2.0) H 01/17/18 04:50 Neutrophils (Manual) 85 % (40-80) H 01/14/18 10:55 Lymphocytes 10 % (20-50) L 01/14/18 10:55 Monocytes 5 % (2-10) 01/14/18 10:55 Platelet Estimate ADEQUATE (NORMAL) 01/14/18 10:55 Sodium 131 mEq/L (136-145) L 01/17/18 04:50 Potassium 4.5 mEq/L (3.5-5.1) 01/17/18 04:50 Chloride 97 mEq/L (98-107) L 01/17/18 04:50 Carbon Dioxide 27.0 mEq/L (21.0-31.0) 01/17/18 04:50 Anion Gap 11.5 (7.0-16.0) 01/17/18 04:50 BUN 39 mg/dL (7-25) H 01/17/18 04:50 Creatinine 1.1 mg/dL (0.6-1.2) 01/17/18 04:50 Est GFR ( Amer) > 60.0 ml/min (>90) 01/17/18 04:50 Est GFR (Non-Af Amer) > 60.0 ml/min 01/17/18 04:50 BUN/Creatinine Ratio 35.5 01/17/18 04:50 Glucose 126 mg/dL (70-105) H 01/17/18 04:50 POC Glucose 198 MG/DL (70 - 105) H 01/17/18 12:10 Whole Bld Lactic Acid 1.78 mmol/L (0.60-1.99) 01/14/18 10:55 Calcium 9.0 mg/dL (8.6-10.3) 01/17/18 04:50 Total Bilirubin 1.5 mg/dL (0.3-1.0) H 01/17/18 04:50 AST 18 U/L (13-39) 01/17/18 04:50 ALT 18 U/L (7-52) 01/17/18 04:50 Alkaline Phosphatase 219 U/L (34-104) H 01/17/18 04:50 Troponin I 0.02 ng/mL (0.01-0.05) 01/14/18 10:55 B-Natriuretic Peptide 1660.0 pg/mL (5.0-100.0) H 01/16/18 08:12 Total Protein 6.6 gm/dL (6.0-8.3) 01/17/18 04:50 Albumin 3.3 gm/dL (3.7-5.3) L 01/17/18 04:50 Globulin 3.3 gm/dL 01/17/18 04:50 Albumin/Globulin Ratio 1.0 (1.0-1.8) 01/17/18 04:50 Amylase 22 U/L (29-103) L 01/14/18 10:55 Lipase 6 U/L (11-82) L 01/14/18 10:55 TSH 7.26 uIU/ml (0.34-5.60) H 01/14/18 10:55 Urine Source CLEAN C 01/15/18 02:55 Urine Color YELLOW 01/15/18 02:55 Urine Clarity CLEAR (CLEAR) 01/15/18 02:55 Urine pH 6.5 (4.6 - 8.0) 01/15/18 02:55 Ur Specific [place] 1.020 (1.005-1.030) 01/15/18 02:55 Urine Protein >=300 mg/dL (NEGATIVE) 01/15/18 02:55 Urine Glucose (UA) >=1000 mg/dL (NEGATIVE) H 01/15/18 02:55 Urine Ketones NEGATIVE mg/dL (NEGATIVE) 01/15/18 02:55 Urine Blood MODERATE (NEGATIVE) H 01/15/18 02:55 Urine Nitrate NEGATIVE (NEGATIVE) 01/15/18 02:55 Urine Bilirubin NEGATIVE (NEGATIVE) 01/15/18 02:55 Urine Urobilinogen 1.0 E.U./dL (0.2 - 1.0) 01/15/18 02:55 Ur Leukocyte Esterase NEGATIVE (NEGATIVE) 01/15/18 02:55 Urine RBC 5-10 /hpf (0-5) H 01/15/18 02:55 Urine WBC 2-5 /hpf (0-5) 01/15/18 02:55 Ur Epithelial Cells FEW /lpf (FEW) 01/15/18 02:55 Urine Bacteria FEW /hpf (NONE SEEN) 01/15/18 02:55 Urine Yeast FEW /hpf (NONE SEEN) H 01/15/18 02:55 Urine Test NEGATIVE 01/14/18 11:19 POC Ur Test Negative 01/14/18 11:16 Urine Opiates Screen NEGATIVE (NEGATIVE) 01/14/18 10:37 Urine Methadone Screen NEGATIVE (NEGATIVE) 01/14/18 10:37 Ur Barbiturates Screen NEGATIVE (NEGATIVE) 01/14/18 10:37 Ur Tricyclics Screen NEGATIVE (NEGATIVE) 01/14/18 10:37 Ur Phencyclidine Scrn NEGATIVE (NEGATIVE) 01/14/18 10:37 Amphetamines Screen NEGATIVE (NEGATIVE) 01/14/18 10:37 U Methamphetamines Scrn NEGATIVE (NEGATIVE) 01/14/18 10:37 U Benzodiazepines Scrn NEGATIVE (NEGATIVE) 01/14/18 10:37 U Cocaine Metab Screen NEGATIVE (NEGATIVE) 01/14/18 10:37 U Cannabinoids Screen NEGATIVE (NEGATIVE) 01/14/18 10:37 - Physical Exam Vitals and I&O: Vital Signs Temp 97.5 F 01/17/18 11:53 Pulse 83 01/17/18 11:53 Resp 18 01/17/18 11:53 BP 138/76 01/17/18 11:53 Pulse Ox 98 01/17/18 11:53 Intake & Output 01/16/18 01/17/18 01/17/18 18:59 06:59 18:59 Intake Total 1200 340 100 Balance 1200 340 100 Weight (lbs) 66.877 kg Intake: Intake, IV Amount 1200 100 100 D5-0.45NS 1,000 ml @ 50 1000 mls/hr IV .Q20H [facility] Rx#: [id number] Meropenem 500 mg In 200 100 100 Sodium Chloride 0.9% 100 ml @ 100 mls/hr IV Q8H [facility] Rx#:[id number] Oral 240 Other: Stool Characteristics Soft Soft Formed Formed Weight Source Bedscale Active Medications: Current Medications Acetaminophen (Tylenol) 650 mg PO Q4H PRN PRN Reason: Pain (Mild) Stop: 03/16/18 13:03 Last Admin: 01/17/18 15:02 Dose: 650 mg Aripiprazole (Abilify) 5 mg PO DAILY [facility]; Protocol Stop: 03/18/18 08:59 Last Admin: 01/17/18 10:47 Dose: 5 mg Aspirin (Aspirin Chewable) 81 mg PO DAILY [facility] Stop: 03/16/18 08:59 Last Admin: 01/17/18 10:47 Dose: 81 mg Carvedilol (Coreg) 3.125 mg PO BID [facility] Stop: 03/16/18 08:59 Last Admin: 01/17/18 10:46 Dose: 3.125 mg Dextrose/Sodium Chloride (D5-0.45ns) 1,000 mls @ 50 mls/hr IV .Q20H [facility] Stop: 03/16/18 12:01 Last Admin: 01/16/18 17:27 Dose: 50 mls/hr Insulin Aspart (Novolog Insulin Sliding Scale) 0 units SUBQ Q6HR [facility]; Protocol Stop: 03/16/18 05:59 Last Admin: 01/17/18 12:17 Dose: 4 units Lactobacillus Rhamnosus (Culturelle 15b) 1 each PO DAILY [facility] Stop: 03/18/18 13:59 Last Admin: 01/17/18 13:45 Dose: 1 each Lisinopril (Zestril) 5 mg PO DAILY [facility] Stop: 03/16/18 08:59 Last Admin: 01/17/18 10:47 Dose: 5 mg Lorazepam (Ativan) 1 mg IVP Q4HR PRN; Protocol PRN Reason: Agitation Stop: 03/15/18 18:54 Last Admin: 01/17/18 13:39 Dose: 1 mg Pantoprazole Sodium (Protonix) 40 mg PO DAILY [facility] Stop: 03/16/18 08:59 Last Admin: 01/17/18 10:47 Dose: 40 mg Trimethoprim/Sulfamethoxazole (Bactrim Ds) 1 tab PO BID BAIRON Stop: 03/18/18 16:59 Zolpidem Tartrate (Ambien) 5 mg PO HS PRN PRN Reason: Insomnia Stop: 03/15/18 18:54 Last Admin: 01/16/18 20:04 Dose: 5 mg General: weak, alert HEENT: NC/AT Neck: Supple Lungs: congested, rales, no CTAB Cardiovascular: Normal S1, Normal S2 Abdomen: soft, non-tender Extremities: clear Neurological: no change Internal Medicine Assmt/Plan - Assessment Assessment: pneumonia rll h/p clostridium dm - Plan Plan: as per order sheet Nutritional Asmnt/Malnutr-PDOC - Dietary Evaluation Malnutrition Findings (Please click <Entered> for more info): Nutritional Asmnt/Malnutrition Start: 01/15/18 09: 47 Text: Status: Complete Freq: Protocol: Document 01/17/18 15:14 SHAHANA (Rec: 01/17/18 15:46 SHAHANA LAIRD) Nutritional Asmnt/Malnutrition Patient General Information Nutritional Screening High Risk Diagnosis UTI, FTT, cardiomegaly Pertinent Medical Hx/Surgical Hx DM, CAD, HTN, CP arrest, cardiomyopathy with low Ef (10 -15%), s/p PEA, AICD placement , hypothyroidism, CHF Per MD note: pt was treated for n/v and diarrhea prior to admission Subjective Information Pt not in room at time of visit. Nursing noted PO intake : 100%. Glucose level at admission 208 noted. Current Diet Order/ Nutrition Support CCHO 60g, JOEL Pertinent Medications D5-0.45ns, novolog, culturelle , protonix Pertinent Labs 01/17: Na 131, Cl 97, BUN 39, glucose 126 (trending down), POC 149, Alb 3.3 01/16: Na 143, Cl 101, BUN 40, glucose 134, POC 143-351, Alb 2.9 Nutritional Hx/Data Height 1.7 m Height (Calculated Centimeters) 170.2 Current Weight (lbs) 66.877 kg Weight (Calculated Kilograms) 66.9 Weight (Calculated Grams) 68968.5 [place] Body Weight 135 lb Body Mass Index (BMI) 23.1 Weight Status Approriate GI Symptoms Last BM 01/15 Difficult in: None Food Allergies No Skin Integrity/Comment: reddened rashes to perineal and gential areas, skins tears to left knee and elbow Current %PO Good (75-100%) Estimated Nutritional Goals BEE in Kcals: Using Current wt Calories/Kcals/Kg 25-30 Kcals Calculated Protein: Using Current wt Protein g/k-1.2 Protein Calculated 67-80 g Fluid: ml (1 ml/kcal) Nutritional Problem 1. Problem Problem Altered nutrition related lab values Etiology DM and possible dehydration Signs/Symptoms: BUN 39, glucose 126-568, POC 149 Malnutrition Alert Is there a minimum of two criteria No selected? Query Text:Check all the applicable criteria. A minimum of two criteria are recommended for diagnosis of either severe or non-severe malnutrition. Malnutrition Related to Morbid Obesity Malnutrition related to morbid obesity No Intervention/Recommendation Comments 1. Continue with CCHO 60g, JOEL diet as ordered d/t hx of DM and HTN. MD to monitor hydration status and insulin regimen for optimal glycemic control 2. Monitor PO intake, wt, labs and skin integrity 3. F/U as moderate risk in 3-5 days, 01/20-01/22 Expected Outcomes/Goals Expected Outcomes/Goals 1. PO intake at least 75% of all meals. 2. Wt stability, improved skin integrity, labs to approach normal limits Reviewed by Desiree Mitchell RD
--- NOTE | 2018-01-17 17:02 | Cardiology ---
01/16/2018 PATIENT OF: Dr. Christine. M-MODE ECHOCARDIOGRAM: Mitral valve, anterior leaflet of mitral valve shows decreased excursion, EF velocity. Posterior leaflet of mitral valve shows decreased excursion. Left ventricular posterior wall showed normal thickness, decreased excursion. Interventricular septum showed normal thickness, decreased excursion, ejection fraction 23%. Left atrium enlarged 4.7 cm. Aortic root showed normal dimension, normal excursion of aortic leaflets. CONCLUSION: Cardiomyopathy, ejection fraction 23%, left atrial enlargement. 2D ECHO: Long axis view shows enlarged left ventricular cavity with decreased ejection fraction. Mitral valve shows decreased excursion. Left atrium enlarged. Aortic root shows normal dimension, normal excursion of aortic leaflets. Short axis view of mitral valve normal. Short axis view of aortic valve normal. Apical four chamber view shows enlarged left ventricular cavity with decreased ejection fraction, left atrial enlargement, right ventricular cavity, right atrial enlargement. CONCLUSION: Left atrial enlargement, right atrial enlargement, cardiomyopathy, ejection fraction 23%. Doppler study shows mild mitral regurgitation, severe tricuspid regurgitation, mild pulmonary regurgitation, right ventricular systolic pressure 53 mmHg with mild pulmonary hypertension. CONCLUSION: Cardiomyopathy, ejection fraction 22%, left atrial enlargement, mild mitral regurgitation, severe tricuspid regurgitation, mild pulmonary regurgitation, mild pulmonary hypertension. JOB# [id number]
[2018-01-17] MEDS: Sulfamethoxazole/TMP 800/160mg Tab PO SCH (17:24)
[2018-01-18] MEDS: INSULIN ASPART SLIDING SCALE 100 UNITS/ML UNIT SUBQ SCH ×4 (00:36→17:05)
[2018-01-18] MEDS: D5-0.45NS 1,000 ML IV SCH (00:58)
[2018-01-18] MEDS ORDERED: Haloperidol Lactate 5 mg/mL 1mL Vial IM STA (01:17)
[2018-01-18] MEDS: Pantoprazole 40 mg EC Tab PO SCH (08:12)
[2018-01-18] MEDS: Lactobacillus Rhamnosus GG 15 Billion CFU CAP.SPRINK PO SCH (08:13)
[2018-01-18] MEDS: Aspirin 81mg Chewable Tab PO SCH (08:13)
[2018-01-18] MEDS: Sulfamethoxazole/TMP 800/160mg Tab PO SCH ×2 (08:13→17:04)
--- NOTE | 2018-01-18 11:41 | Infectious Disease Prog Note ---
Infectious Disease Subjective - Review of Systems Service Date: 01/18/18 Subjective: There is no new change, no fever. Infectious Disease Objective - Results Result Diagrams: 01/17/18 04:50 01/17/18 04:50 Recent Labs: Laboratory Last Values WBC 8.4 Th/cmm (4.8-10.8) 01/17/18 04:50 RBC 5.86 Mil/cmm (3.80-5.10) H 01/17/18 04:50 Hgb 16.2 gm/dL (12-16) 01/17/18 04:50 Hct 50.4 % (41.0-60) 01/17/18 04:50 MCV 85.9 fl (81-100) 01/17/18 04:50 MCH 27.7 pg (27.0-31.0) 01/17/18 04:50 MCHC Differential 32.2 pg (28.0-36.0) 01/17/18 04:50 RDW 17.1 % (11.5-20.0) 01/17/18 04:50 Plt Count 180 Th/cmm (150-400) 01/17/18 04:50 MPV 8.0 fl 01/17/18 04:50 Add Manual Diff YES 01/14/18 10:55 Neutrophils % 77.4 % (40.0-80.0) 01/17/18 04:50 Band Neutrophils % 0 % (0-10) 01/14/18 10:55 Lymphocytes % 10.7 % (20.0-50.0) L 01/17/18 04:50 Monocytes % 5.7 % (2.0-10.0) 01/17/18 04:50 Eosinophils % 2.6 % (0.0-5.0) 01/17/18 04:50 Basophils % 3.6 % (0.0-2.0) H 01/17/18 04:50 Neutrophils (Manual) 85 % (40-80) H 01/14/18 10:55 Lymphocytes 10 % (20-50) L 01/14/18 10:55 Monocytes 5 % (2-10) 01/14/18 10:55 Platelet Estimate ADEQUATE (NORMAL) 01/14/18 10:55 Sodium 131 mEq/L (136-145) L 01/17/18 04:50 Potassium 4.5 mEq/L (3.5-5.1) 01/17/18 04:50 Chloride 97 mEq/L (98-107) L 01/17/18 04:50 Carbon Dioxide 27.0 mEq/L (21.0-31.0) 01/17/18 04:50 Anion Gap 11.5 (7.0-16.0) 01/17/18 04:50 BUN 39 mg/dL (7-25) H 01/17/18 04:50 Creatinine 1.1 mg/dL (0.6-1.2) 01/17/18 04:50 Est GFR ( Amer) > 60.0 ml/min (>90) 01/17/18 04:50 Est GFR (Non-Af Amer) > 60.0 ml/min 01/17/18 04:50 BUN/Creatinine Ratio 35.5 01/17/18 04:50 Glucose 126 mg/dL (70-105) H 01/17/18 04:50 POC Glucose 243 MG/DL (70 - 105) H 01/18/18 06:01 Whole Bld Lactic Acid 1.78 mmol/L (0.60-1.99) 01/14/18 10:55 Calcium 9.0 mg/dL (8.6-10.3) 01/17/18 04:50 Total Bilirubin 1.5 mg/dL (0.3-1.0) H 01/17/18 04:50 AST 18 U/L (13-39) 01/17/18 04:50 ALT 18 U/L (7-52) 01/17/18 04:50 Alkaline Phosphatase 219 U/L (34-104) H 01/17/18 04:50 Troponin I 0.02 ng/mL (0.01-0.05) 01/14/18 10:55 B-Natriuretic Peptide 1660.0 pg/mL (5.0-100.0) H 01/16/18 08:12 Total Protein 6.6 gm/dL (6.0-8.3) 01/17/18 04:50 Albumin 3.3 gm/dL (3.7-5.3) L 01/17/18 04:50 Globulin 3.3 gm/dL 01/17/18 04:50 Albumin/Globulin Ratio 1.0 (1.0-1.8) 01/17/18 04:50 Amylase 22 U/L (29-103) L 01/14/18 10:55 Lipase 6 U/L (11-82) L 01/14/18 10:55 TSH 7.26 uIU/ml (0.34-5.60) H 01/14/18 10:55 Urine Source CLEAN C 01/15/18 02:55 Urine Color YELLOW 01/15/18 02:55 Urine Clarity CLEAR (CLEAR) 01/15/18 02:55 Urine pH 6.5 (4.6 - 8.0) 01/15/18 02:55 Ur Specific [place] 1.020 (1.005-1.030) 01/15/18 02:55 Urine Protein >=300 mg/dL (NEGATIVE) 01/15/18 02:55 Urine Glucose (UA) >=1000 mg/dL (NEGATIVE) H 01/15/18 02:55 Urine Ketones NEGATIVE mg/dL (NEGATIVE) 01/15/18 02:55 Urine Blood MODERATE (NEGATIVE) H 01/15/18 02:55 Urine Nitrate NEGATIVE (NEGATIVE) 01/15/18 02:55 Urine Bilirubin NEGATIVE (NEGATIVE) 01/15/18 02:55 Urine Urobilinogen 1.0 E.U./dL (0.2 - 1.0) 01/15/18 02:55 Ur Leukocyte Esterase NEGATIVE (NEGATIVE) 01/15/18 02:55 Urine RBC 5-10 /hpf (0-5) H 01/15/18 02:55 Urine WBC 2-5 /hpf (0-5) 01/15/18 02:55 Ur Epithelial Cells FEW /lpf (FEW) 01/15/18 02:55 Urine Bacteria FEW /hpf (NONE SEEN) 01/15/18 02:55 Urine Yeast FEW /hpf (NONE SEEN) H 01/15/18 02:55 Urine Test NEGATIVE 01/14/18 11:19 POC Ur Test Negative 01/14/18 11:16 Urine Opiates Screen NEGATIVE (NEGATIVE) 01/14/18 10:37 Urine Methadone Screen NEGATIVE (NEGATIVE) 01/14/18 10:37 Ur Barbiturates Screen NEGATIVE (NEGATIVE) 01/14/18 10:37 Ur Tricyclics Screen NEGATIVE (NEGATIVE) 01/14/18 10:37 Ur Phencyclidine Scrn NEGATIVE (NEGATIVE) 01/14/18 10:37 Amphetamines Screen NEGATIVE (NEGATIVE) 01/14/18 10:37 U Methamphetamines Scrn NEGATIVE (NEGATIVE) 01/14/18 10:37 U Benzodiazepines Scrn NEGATIVE (NEGATIVE) 01/14/18 10:37 U Cocaine Metab Screen NEGATIVE (NEGATIVE) 01/14/18 10:37 U Cannabinoids Screen NEGATIVE (NEGATIVE) 01/14/18 10:37 - Physical Exam Vitals and I&O: Vital Signs Temp 96.5 F 01/18/18 08:00 Pulse 87 01/18/18 08:20 Resp 18 01/18/18 08:00 BP 122/84 01/18/18 08:20 Pulse Ox 100 01/18/18 08:00 Intake & Output 01/17/18 01/18/18 01/18/18 18:59 06:59 18:59 Intake Total 2900 150 Balance 2900 150 Weight (lbs) 66.877 kg 66.678 kg Intake: Intake, IV Amount 1100 D5-0.45NS 1,000 ml @ 50 1000 mls/hr IV .Q20H [facility] Rx#: [id number] Meropenem 500 mg In 100 Sodium Chloride 0.9% 100 ml @ 100 mls/hr IV Q8H [facility] Rx#:[id number] Oral 1800 150 Other: # Voids 3 5 # Bowel Movements 1 4 Stool Characteristics Soft Soft Formed Formed Weight Source Bedscale Bedscale Active Medications: Current Medications Acetaminophen (Tylenol) 650 mg PO Q4H PRN PRN Reason: Pain (Mild) Stop: 03/16/18 13:03 Last Admin: 01/18/18 00:32 Dose: 650 mg Aripiprazole (Abilify) 5 mg PO DAILY [facility]; Protocol Stop: 03/18/18 08:59 Last Admin: 01/18/18 08:12 Dose: 5 mg Aspirin (Aspirin Chewable) 81 mg PO DAILY [facility] Stop: 03/16/18 08:59 Last Admin: 01/18/18 08:13 Dose: 81 mg Carvedilol (Coreg) 3.125 mg PO BID [facility] Stop: 03/16/18 08:59 Last Admin: 01/18/18 08:20 Dose: 3.125 mg Dextrose/Sodium Chloride (D5-0.45ns) 1,000 mls @ 50 mls/hr IV .Q20H [facility] Stop: 03/16/18 12:01 Last Admin: 01/18/18 00:58 Dose: 50 mls/hr Insulin Aspart (Novolog Insulin Sliding Scale) 0 units SUBQ Q6HR [facility]; Protocol Stop: 03/16/18 05:59 Last Admin: 01/18/18 07:55 Dose: 6 units Lactobacillus Rhamnosus (Culturelle 15b) 1 each PO DAILY [facility] Stop: 03/18/18 13:59 Last Admin: 01/18/18 08:13 Dose: 1 each Lisinopril (Zestril) 5 mg PO DAILY [facility] Stop: 03/16/18 08:59 Last Admin: 01/18/18 08:20 Dose: 5 mg Lorazepam (Ativan) 1 mg IVP Q4HR PRN; Protocol PRN Reason: Agitation Stop: 03/15/18 18:54 Last Admin: 01/18/18 06:10 Dose: 1 mg Pantoprazole Sodium (Protonix) 40 mg PO DAILY [facility] Stop: 03/16/18 08:59 Last Admin: 01/18/18 08:12 Dose: 40 mg Trimethoprim/Sulfamethoxazole (Bactrim Ds) 1 tab PO BID [facility] Stop: 03/18/18 16:59 Last Admin: 01/18/18 08:13 Dose: 1 tab Zolpidem Tartrate (Ambien) 5 mg PO HS PRN PRN Reason: Insomnia Stop: 03/15/18 18:54 Last Admin: 01/17/18 22:02 Dose: 5 mg General: no acute distress, well developed, well nourished HEENT: atraumatic, normocephalic, PERRLA, EOMI Neck: supple, no thyromegaly Cardiovascular: S1S2, regular Lungs: clear to auscultation bilaterally, clear to percussion Abdomen: soft, no tender, no distended, no mass Extremities: other (there are superficial wounds on the left elbow with erythema , left knee with erythema, right knee without erythema.), no cyanosis, no clubbing, no edema Neurological: awake, alert, oriented Skin: intact Infectious Disease Assmt/Plan - Assessment Assessment: 1. C diff colitis, there is no diarrhea. 2, History of URI with ESBL positive organism. Urine cultures are negative. 3. Cellulitis and wound on the left elbow and left knee. 4. cardiomyopathy, with low EF, AICD placement,. 5. history of CP arrest. 6. DM T2. 7. hypothyroidism. - Plan Plan: Continue bactrim for total 7 days, continue flagyl for total 10 days. Wound care. Nutritional Asmnt/Malnutr-PDOC - Dietary Evaluation Malnutrition Findings (Please click <Entered> for more info): Nutritional Asmnt/Malnutrition Start: 01/15/18 09: 47 Text: Status: Complete Freq: Protocol: Document 01/17/18 15:14 WINTERASHLEY (Rec: 01/17/18 15:46 WINTERASHLEY SISI) Nutritional Asmnt/Malnutrition Patient General Information Nutritional Screening High Risk Diagnosis UTI, FTT, cardiomegaly Pertinent Medical Hx/Surgical Hx DM, CAD, HTN, CP arrest, cardiomyopathy with low Ef (10 -15%), s/p PEA, AICD placement , hypothyroidism, CHF Per MD note: pt was treated for n/v and diarrhea prior to admission Subjective Information Pt not in room at time of visit. Nursing noted PO intake : 100%. Glucose level at admission 208 noted. Current Diet Order/ Nutrition Support CCHO 60g, JOEL Pertinent Medications D5-0.45ns, novolog, culturelle , protonix Pertinent Labs 01/17: Na 131, Cl 97, BUN 39, glucose 126 (trending down), POC 149, Alb 3.3 01/16: Na 143, Cl 101, BUN 40, glucose 134, POC 143-351, Alb 2.9 Nutritional Hx/Data Height 1.7 m Height (Calculated Centimeters) 170.2 Current Weight (lbs) 66.877 kg Weight (Calculated Kilograms) 66.9 Weight (Calculated Grams) 70524.5 [place] Body Weight 135 lb Body Mass Index (BMI) 23.1 Weight Status Approriate GI Symptoms Last BM 01/15 Difficult in: None Food Allergies No Skin Integrity/Comment: reddened rashes to perineal and gential areas, skins tears to left knee and elbow Current %PO Good (75-100%) Estimated Nutritional Goals BEE in Kcals: Using Current wt Calories/Kcals/Kg 25-30 Kcals Calculated Protein: Using Current wt Protein g/k-1.2 Protein Calculated 67-80 g Fluid: ml (1 ml/kcal) Nutritional Problem 1. Problem Problem Altered nutrition related lab values Etiology DM and possible dehydration Signs/Symptoms: BUN 39, glucose 126-568, POC 149 Malnutrition Alert Is there a minimum of two criteria No selected? Query Text:Check all the applicable criteria. A minimum of two criteria are recommended for diagnosis of either severe or non-severe malnutrition. Malnutrition Related to Morbid Obesity Malnutrition related to morbid obesity No Intervention/Recommendation Comments 1. Continue with CCHO 60g, JOEL diet as ordered d/t hx of DM and HTN. MD to monitor hydration status and insulin regimen for optimal glycemic control 2. Monitor PO intake, wt, labs and skin integrity 3. F/U as moderate risk in 3-5 days, 01/20-01/22 Expected Outcomes/Goals Expected Outcomes/Goals 1. PO intake at least 75% of all meals. 2. Wt stability, improved skin integrity, labs to approach normal limits Reviewed by Desiree Mitchell RD
--- NOTE | 2018-01-18 11:59 | Internal Medicine Prog Note ---
Internal Medicine Subjective - Subjective Service Date: 01/18/18 Patient is:: awake, verbal, other Per staff patient has:: tolerating meds Internal Medicine Objective - Results Result Diagrams: 01/17/18 04:50 01/17/18 04:50 Recent Labs: Laboratory Last Values WBC 8.4 Th/cmm (4.8-10.8) 01/17/18 04:50 RBC 5.86 Mil/cmm (3.80-5.10) H 01/17/18 04:50 Hgb 16.2 gm/dL (12-16) 01/17/18 04:50 Hct 50.4 % (41.0-60) 01/17/18 04:50 MCV 85.9 fl (81-100) 01/17/18 04:50 MCH 27.7 pg (27.0-31.0) 01/17/18 04:50 MCHC Differential 32.2 pg (28.0-36.0) 01/17/18 04:50 RDW 17.1 % (11.5-20.0) 01/17/18 04:50 Plt Count 180 Th/cmm (150-400) 01/17/18 04:50 MPV 8.0 fl 01/17/18 04:50 Add Manual Diff YES 01/14/18 10:55 Neutrophils % 77.4 % (40.0-80.0) 01/17/18 04:50 Band Neutrophils % 0 % (0-10) 01/14/18 10:55 Lymphocytes % 10.7 % (20.0-50.0) L 01/17/18 04:50 Monocytes % 5.7 % (2.0-10.0) 01/17/18 04:50 Eosinophils % 2.6 % (0.0-5.0) 01/17/18 04:50 Basophils % 3.6 % (0.0-2.0) H 01/17/18 04:50 Neutrophils (Manual) 85 % (40-80) H 01/14/18 10:55 Lymphocytes 10 % (20-50) L 01/14/18 10:55 Monocytes 5 % (2-10) 01/14/18 10:55 Platelet Estimate ADEQUATE (NORMAL) 01/14/18 10:55 Sodium 131 mEq/L (136-145) L 01/17/18 04:50 Potassium 4.5 mEq/L (3.5-5.1) 01/17/18 04:50 Chloride 97 mEq/L (98-107) L 01/17/18 04:50 Carbon Dioxide 27.0 mEq/L (21.0-31.0) 01/17/18 04:50 Anion Gap 11.5 (7.0-16.0) 01/17/18 04:50 BUN 39 mg/dL (7-25) H 01/17/18 04:50 Creatinine 1.1 mg/dL (0.6-1.2) 01/17/18 04:50 Est GFR ( Amer) > 60.0 ml/min (>90) 01/17/18 04:50 Est GFR (Non-Af Amer) > 60.0 ml/min 01/17/18 04:50 BUN/Creatinine Ratio 35.5 01/17/18 04:50 Glucose 126 mg/dL (70-105) H 01/17/18 04:50 POC Glucose 243 MG/DL (70 - 105) H 01/18/18 06:01 Whole Bld Lactic Acid 1.78 mmol/L (0.60-1.99) 01/14/18 10:55 Calcium 9.0 mg/dL (8.6-10.3) 01/17/18 04:50 Total Bilirubin 1.5 mg/dL (0.3-1.0) H 01/17/18 04:50 AST 18 U/L (13-39) 01/17/18 04:50 ALT 18 U/L (7-52) 01/17/18 04:50 Alkaline Phosphatase 219 U/L (34-104) H 01/17/18 04:50 Troponin I 0.02 ng/mL (0.01-0.05) 01/14/18 10:55 B-Natriuretic Peptide 1660.0 pg/mL (5.0-100.0) H 01/16/18 08:12 Total Protein 6.6 gm/dL (6.0-8.3) 01/17/18 04:50 Albumin 3.3 gm/dL (3.7-5.3) L 01/17/18 04:50 Globulin 3.3 gm/dL 01/17/18 04:50 Albumin/Globulin Ratio 1.0 (1.0-1.8) 01/17/18 04:50 Amylase 22 U/L (29-103) L 01/14/18 10:55 Lipase 6 U/L (11-82) L 01/14/18 10:55 TSH 7.26 uIU/ml (0.34-5.60) H 01/14/18 10:55 Urine Source CLEAN C 01/15/18 02:55 Urine Color YELLOW 01/15/18 02:55 Urine Clarity CLEAR (CLEAR) 01/15/18 02:55 Urine pH 6.5 (4.6 - 8.0) 01/15/18 02:55 Ur Specific [place] 1.020 (1.005-1.030) 01/15/18 02:55 Urine Protein >=300 mg/dL (NEGATIVE) 01/15/18 02:55 Urine Glucose (UA) >=1000 mg/dL (NEGATIVE) H 01/15/18 02:55 Urine Ketones NEGATIVE mg/dL (NEGATIVE) 01/15/18 02:55 Urine Blood MODERATE (NEGATIVE) H 01/15/18 02:55 Urine Nitrate NEGATIVE (NEGATIVE) 01/15/18 02:55 Urine Bilirubin NEGATIVE (NEGATIVE) 01/15/18 02:55 Urine Urobilinogen 1.0 E.U./dL (0.2 - 1.0) 01/15/18 02:55 Ur Leukocyte Esterase NEGATIVE (NEGATIVE) 01/15/18 02:55 Urine RBC 5-10 /hpf (0-5) H 01/15/18 02:55 Urine WBC 2-5 /hpf (0-5) 01/15/18 02:55 Ur Epithelial Cells FEW /lpf (FEW) 01/15/18 02:55 Urine Bacteria FEW /hpf (NONE SEEN) 01/15/18 02:55 Urine Yeast FEW /hpf (NONE SEEN) H 01/15/18 02:55 Urine Test NEGATIVE 01/14/18 11:19 POC Ur Test Negative 01/14/18 11:16 Urine Opiates Screen NEGATIVE (NEGATIVE) 01/14/18 10:37 Urine Methadone Screen NEGATIVE (NEGATIVE) 01/14/18 10:37 Ur Barbiturates Screen NEGATIVE (NEGATIVE) 01/14/18 10:37 Ur Tricyclics Screen NEGATIVE (NEGATIVE) 01/14/18 10:37 Ur Phencyclidine Scrn NEGATIVE (NEGATIVE) 01/14/18 10:37 Amphetamines Screen NEGATIVE (NEGATIVE) 01/14/18 10:37 U Methamphetamines Scrn NEGATIVE (NEGATIVE) 01/14/18 10:37 U Benzodiazepines Scrn NEGATIVE (NEGATIVE) 01/14/18 10:37 U Cocaine Metab Screen NEGATIVE (NEGATIVE) 01/14/18 10:37 U Cannabinoids Screen NEGATIVE (NEGATIVE) 01/14/18 10:37 - Physical Exam Vitals and I&O: Vital Signs Temp 96.5 F 01/18/18 08:00 Pulse 87 01/18/18 08:20 Resp 18 01/18/18 08:00 BP 122/84 01/18/18 08:20 Pulse Ox 100 01/18/18 08:00 Intake & Output 01/17/18 01/18/18 01/18/18 18:59 06:59 18:59 Intake Total 2900 150 Balance 2900 150 Weight (lbs) 147 lb 7 oz 147 lb Intake: Intake, IV Amount 1100 D5-0.45NS 1,000 ml @ 50 1000 mls/hr IV .Q20H [facility] Rx#: [id number] Meropenem 500 mg In 100 Sodium Chloride 0.9% 100 ml @ 100 mls/hr IV Q8H [facility] Rx#:[id number] Oral 1800 150 Other: # Voids 3 5 # Bowel Movements 1 4 Stool Characteristics Soft Soft Formed Formed Weight Source Bedscale Bedscale Active Medications: Current Medications Acetaminophen (Tylenol) 650 mg PO Q4H PRN PRN Reason: Pain (Mild) Stop: 03/16/18 13:03 Last Admin: 01/18/18 00:32 Dose: 650 mg Aripiprazole (Abilify) 5 mg PO DAILY [facility]; Protocol Stop: 03/18/18 08:59 Last Admin: 01/18/18 08:12 Dose: 5 mg Aspirin (Aspirin Chewable) 81 mg PO DAILY [facility] Stop: 03/16/18 08:59 Last Admin: 01/18/18 08:13 Dose: 81 mg Carvedilol (Coreg) 3.125 mg PO BID [facility] Stop: 03/16/18 08:59 Last Admin: 01/18/18 08:20 Dose: 3.125 mg Dextrose/Sodium Chloride (D5-0.45ns) 1,000 mls @ 50 mls/hr IV .Q20H [facility] Stop: 03/16/18 12:01 Last Admin: 01/18/18 00:58 Dose: 50 mls/hr Insulin Aspart (Novolog Insulin Sliding Scale) 0 units SUBQ Q6HR [facility]; Protocol Stop: 03/16/18 05:59 Last Admin: 01/18/18 07:55 Dose: 6 units Lactobacillus Rhamnosus (Culturelle 15b) 1 each PO DAILY [facility] Stop: 03/18/18 13:59 Last Admin: 01/18/18 08:13 Dose: 1 each Lisinopril (Zestril) 5 mg PO DAILY [facility] Stop: 03/16/18 08:59 Last Admin: 01/18/18 08:20 Dose: 5 mg Lorazepam (Ativan) 1 mg IVP Q4HR [facility]; Protocol PRN Reason: Agitation Stop: 03/15/18 18:54 Last Admin: 01/18/18 06:10 Dose: 1 mg Pantoprazole Sodium (Protonix) 40 mg PO DAILY [facility] Stop: 03/16/18 08:59 Last Admin: 01/18/18 08:12 Dose: 40 mg Trimethoprim/Sulfamethoxazole (Bactrim Ds) 1 tab PO BID [facility] Stop: 03/18/18 16:59 Last Admin: 01/18/18 08:13 Dose: 1 tab Zolpidem Tartrate (Ambien) 5 mg PO HS PRN PRN Reason: Insomnia Stop: 03/15/18 18:54 Last Admin: 01/17/18 22:02 Dose: 5 mg General: weak, alert HEENT: NC/AT Neck: Supple Lungs: congested, rales, no CTAB Cardiovascular: Normal S1, Normal S2 Abdomen: soft, non-tender Extremities: clear Neurological: no change Internal Medicine Assmt/Plan - Assessment Assessment: pneumonia rll h/p clostridium dm - Plan Plan: continue flagyl follow up labs in am continue current plan of care Nutritional Asmnt/Malnutr-PDOC - Dietary Evaluation Malnutrition Findings (Please click <Entered> for more info): Nutritional Asmnt/Malnutrition Start: 01/15/18 09: 47 Text: Status: Complete Freq: Protocol: Document 01/17/18 15:14 SHAHANA (Rec: 01/17/18 15:46 SHAHANA LAIRD) Nutritional Asmnt/Malnutrition Patient General Information Nutritional Screening High Risk Diagnosis UTI, FTT, cardiomegaly Pertinent Medical Hx/Surgical Hx DM, CAD, HTN, CP arrest, cardiomyopathy with low Ef (10 -15%), s/p PEA, AICD placement , hypothyroidism, CHF Per MD note: pt was treated for n/v and diarrhea prior to admission Subjective Information Pt not in room at time of visit. Nursing noted PO intake : 100%. Glucose level at admission 208 noted. Current Diet Order/ Nutrition Support CCHO 60g, JOEL Pertinent Medications D5-0.45ns, novolog, culturelle , protonix Pertinent Labs 01/17: Na 131, Cl 97, BUN 39, glucose 126 (trending down), POC 149, Alb 3.3 01/16: Na 143, Cl 101, BUN 40, glucose 134, POC 143-351, Alb 2.9 Nutritional Hx/Data Height 5 ft 7 in Height (Calculated Centimeters) 170.2 Current Weight (lbs) 147 lb 7 oz Weight (Calculated Kilograms) 66.9 Weight (Calculated Grams) 85583.5 [place] Body Weight 135 lb Body Mass Index (BMI) 23.1 Weight Status Approriate GI Symptoms Last BM 01/15 Difficult in: None Food Allergies No Skin Integrity/Comment: reddened rashes to perineal and gential areas, skins tears to left knee and elbow Current %PO Good (75-100%) Estimated Nutritional Goals BEE in Kcals: Using Current wt Calories/Kcals/Kg 25-30 Kcals Calculated Protein: Using Current wt Protein g/k-1.2 Protein Calculated 67-80 g Fluid: ml (1 ml/kcal) Nutritional Problem 1. Problem Problem Altered nutrition related lab values Etiology DM and possible dehydration Signs/Symptoms: BUN 39, glucose 126-568, POC 149 Malnutrition Alert Is there a minimum of two criteria No selected? Query Text:Check all the applicable criteria. A minimum of two criteria are recommended for diagnosis of either severe or non-severe malnutrition. Malnutrition Related to Morbid Obesity Malnutrition related to morbid obesity No Intervention/Recommendation Comments 1. Continue with CCHO 60g, JOEL diet as ordered d/t hx of DM and HTN. MD to monitor hydration status and insulin regimen for optimal glycemic control 2. Monitor PO intake, wt, labs and skin integrity 3. F/U as moderate risk in 3-5 days, 01/20-01/22 Expected Outcomes/Goals Expected Outcomes/Goals 1. PO intake at least 75% of all meals. 2. Wt stability, improved skin integrity, labs to approach normal limits Reviewed by Desiree Mitchell RD
--- NOTE | 2018-01-19 08:55 | Diagnostic Imaging Report ---
CT cervical spine without IV contrast HISTORY: Fall COMPARISON: None Technique: Axial images were obtained from the skull base to the upper thoracic spine without IV contrast. Multiplanar reconstructions were made. Total DLP: 489, CTDI23 FINDINGS: Images of the cervical spine obtained without contrast demonstrate straightening of the cervical lordosis. There is a 3 mm calcification inferior to the tip of the clivus which may be due to old trauma or degenerative etiology. Otherwise no evidence of acute fracture or subluxation. Minimal early degenerative changes are noted. No prevertebral soft tissue swelling. The lung apices demonstrate mild hypoventilatory changes. Partially visualized pacemaker wires are noted. IMPRESSION: 3 mm calcification inferior to the tip of the clivus, which is nonspecific and may be related to degenerative etiology or old trauma. Otherwise no evidence of an acute fracture or subluxation. Straightening of the cervical lordosis which may be due to positioning versus muscle spasm. Minimal degenerative changes.
--- NOTE | 2018-01-19 09:04 | Diagnostic Imaging Report ---
CT pelvis without IV contrast HISTORY: Fall COMPARISON: None Technique: Axial images were obtained from the lower abdomen to the proximal bilateral femurs without IV contrast. Reconstructions were made. total DLP: 491, CTDI20 Findings: Assessment of the pelvis demonstrates ascites. Distended urinary bladder is noted. Anasarca is noted. Diffuse atherosclerosis is noted. Degenerative changes the lower lumbar spine is seen with partial sacralization of L5 on the left. Mild degenerative changes in bilateral hip joints are noted. No dislocation. There is subtle lucency seen along the inferior right pubic ramus (image 67, series 4). This may be due to volume averaging and enthesophyte formation however nondisplaced fracture cannot be completely excluded. IMPRESSION: Subtle lucency seen along the right inferior pubic ramus. This may be due to volume averaging and possible enthesophyte formation in this region. A nondisplaced fracture cannot be completely excluded. Please correlate with clinical findings. No evidence of a femoral fracture or dislocation Degenerative changes. Ascites. Anasarca. Distended urinary bladder Atherosclerotic vascular disease.
== END 2018-01-18 20:35 | DRG 248 ==
LOC: ER 09:58 → TELE 14:44
PROVIDERS: ADMIT Internal Medicine; ATTEND Internal Medicine
DX: A04.72 Enterocolitis due to Clostridium difficile, not specified as recurrent (principal); I50.23 Acute on chronic systolic (congestive) heart failure; J18.1 Lobar pneumonia, unspecified organism; I42.9 Cardiomyopathy, unspecified; E87.8 Other disorders of electrolyte and fluid balance, not elsewhere classified; E87.1 Hypo-osmolality and hyponatremia; F15.20 Other stimulant dependence, uncomplicated; L03.116 Cellulitis of left lower limb; E86.0 Dehydration; Z86.74 Personal history of sudden cardiac arrest; L03.114 Cellulitis of left upper limb; E11.9 Type 2 diabetes mellitus without complications; E03.9 Hypothyroidism, unspecified; I25.10 Atherosclerotic heart disease of native coronary artery without angina pectoris; F41.9 Anxiety disorder, unspecified; Z95.810 Presence of automatic (implantable) cardiac defibrillator; Z83.3 Family history of diabetes mellitus; Z79.4 Long term (current) use of insulin; Z86.718 Personal history of other venous thrombosis and embolism; Z79.01 Long term (current) use of anticoagulants; Z86.19 Personal history of other infectious and parasitic diseases
CPT/HCPCS: 36415-UA; 71045-TC; 72125-TC; 72192-TC; 80053-TC; 80307; 81001-TC; 81025-TC; 82150-TC; 82947-TC; 82948-90; 83036-90; 83605; 83690-TC; 83880-TC; 84443-TC; 84484-TC; 85007-TC; 85025-TC; 87046-90; 87086-90; 93005; J1630; J1815; J1940; J2060; J2185; J2543; J7030; Z7610

== ENCOUNTER 2018-03-12 12:24 | Inpatient (IN) | payer MEDICAID ==
[2018-03-12 13:04] LABS: HEMATOCRIT 46.7 % (41.0-60); HEMOGLOBIN 15.1 gm/dL (12-16); MEAN CORPUSCULAR HEMOGLOBIN 28.5 pg (27.0-31.0); MEAN CORPUSCULAR HGB CONC 32.4 pg (28.0-36.0); MEAN PLATELET VOLUME 7.1 fl; PLATELET COUNT 227 Th/cmm (150-400); RED CELL DISTRIBUTION WIDTH 19.6 % (11.5-20.0)
[2018-03-12 13:11] LABS: INR 1.15 (0.5-1.4); PROTHROMBIN TIME (TEST) 11.9 SECONDS (9.5-11.5)
[2018-03-12 13:17] LABS: ALB/GLOB RATIO 0.8 (1.0-1.8); ALBUMIN 2.8 gm/dL (3.7-5.3); ANION GAP 13.2 (7.0-16.0); BILIRUBIN,TOTAL 1.6 mg/dL (0.3-1.0); CALCIUM SERUM 9.3 mg/dL (8.6-10.3); CARBON DIOXIDE 21.3 mEq/L (21.0-31.0); GFR AFRICAN-AMERICAN 37.9 ml/min (>90); GFR NON AFRICAN-AMERICAN 31.3 ml/min; POTASSIUM SERUM 5.5 mEq/L (3.5-5.1); TOTAL PROTEIN,SERUM 6.2 gm/dL (6.0-8.3)
[2018-03-12 13:41] LABS: BAND NEUTROPHILE 1 % (0-10); EOSINOPHIL 1 % (0-5); LYMPHOCYTE 7 % (20-50); MONOCYTE 4 % (2-10); NEUTROPHILS 86 % (40-80)
[2018-03-12] MEDS ORDERED: Sodium Chloride 0.9% 1,000 ML IV ONE (13:41)
[2018-03-12 13:42] LABS: BASOPHIL 1 % (0-3); PLATELET ESTIMATE ADEQUATE (NORMAL)
--- NOTE | 2018-03-12 13:54 | ED Physician Chart ---
ED Chief Complaint/HPI - Patient Information Date Seen:: 03/12/18 Time Seen:: 12:45 Chief Complaint:: DISTENDED ABDOMEN History of Present Illness:: THIS IS A 27 YO FEMALE S[facility] FOR [facility]ALUATION AND TREATMENT OF HER DISTENDED ABDOMEN. THE PATIENT ALSO HAD AN ULTRASOUND FINDING THAT INDICATED THAT SHE WOULD NEED TO HAVE A CT OR MRI SCAN TO MAKE AN ACCURATE DIAGNOSIS. SHE ALSO HAS SOME MENTAL ISSUES. Allergies:: Allergies Allergy/AdvReac Type Severity Reaction Status Date / Time No Known Allergies Allergy Verified 03/12/18 12:35 Vitals:: Vital Signs - 8 hr 03/12/18 12:35 Temp 97.9 F HR 87 RR 18 BP 125/87 O2 Sat % 98 Historian:: Medical Records Review:: Nurse's Note Reviewed, Old Chart Reviewed ED Review of Systems - Review of Systems General/Constitutional: Other (THIS PATIENT IS NOT ABLE TO GIVE A REVIEW OF SYSTEMS.) ED Past Medical History - Past Medical History Obtainable: Yes Past Medical History: HTN, DM, CAD, Dementia Family History: None Social History: Non Smoker, No Alcohol, No Drug Use, Care Facility Surgical History: Pacemaker Psychiatricy History: Dementia Medication: Reviewed Family Medical History - Family Member Mother History Unknown: Yes Ethnicity: Living Status: Still Living Hx Family Diabetes: Yes ED Physical Exam - Physical Examination General/Constitutional: Awake, Well-developed, well-nourished, Alert, No distress, GCS 15, Non-toxic appearing, Ambulatory Head: Atraumatic Eyes: Lids, conjuctiva normal, PERRL, EOMI Skin: Nl inspection, No rash, No skin lesions, No ecchymosis, Well hydrated, No lymphadenopathy ENMT: External ears, nose nl, Nasal exam nl, Lips, teeth, gums nl Neck: Nontender, Full ROM w/o pain, No JVD, No nuchal rigidity, No bruit, No mass, No stridor Respiratory: Nl effort/Exclusion, Clear to Auscultation, No Wheeze/Rhonchi/Rales Cardio Vascular: RRR, No murmur, gallop, rubs, NL S1 S2 GI: No tenderness/rebounding/guarding, No organomegaly, No hernia, Normal BS's, Nondistended, No mass/bruits, No McBurney tenderness : No CVA tenderness Extremities: No tenderness or effusion, Full ROM, normal strength in all extremities, No edema, Normal digits & nails Neuro/Psych: Alert/oriented, DTR's symmetric, Normal sensory exam, Normal motor strength, Judgement/insight normal (POOR JUDEMENT), Mood normal, Normal gait, No focal deficits Misc: Normal back, No paraspinal tenderness ED Labs/Radiology/EKG Results - Lab Results Results: Laboratory Tests 03/12/18 03/12/18 03/12/18 12:45 12:45 12:45 WBC 9.0 RBC 5.30 H Hgb 15.1 Hct 46.7 MCV 88.0 MCH 28.5 MCHC Differential 32.4 RDW 19.6 Plt Count 227 MPV 7.1 Add Manual Diff YES Band Neutrophils % 1 Neutrophils (Manual) 86 H Lymphocytes 7 L Monocytes 4 Eosinophils 1 Basophils 1 Platelet Estimate ADEQUATE PT 11.9 H INR 1.15 Sodium Potassium Chloride Carbon Dioxide Anion Gap BUN Creatinine Est GFR ( Amer) Est GFR (Non-Af Amer) BUN/Creatinine Ratio Glucose Calcium Total Bilirubin AST ALT Alkaline Phosphatase Troponin I 0.03 Total Protein Albumin Globulin Albumin/Globulin Ratio Serum , Qual 03/12/18 03/12/18 12:45 12:45 WBC RBC Hgb Hct MCV MCH MCHC Differential RDW Plt Count MPV Add Manual Diff Band Neutrophils % Neutrophils (Manual) Lymphocytes Monocytes Eosinophils Basophils Platelet Estimate PT INR Sodium 134 L Potassium 5.5 H Chloride 105 Carbon Dioxide 21.3 Anion Gap 13.2 BUN 46 H Creatinine 2.0 H Est GFR ( Amer) 37.9 Est GFR (Non-Af Amer) 31.3 BUN/Creatinine Ratio 23.0 Glucose 91 Calcium 9.3 Total Bilirubin 1.6 H AST 10 L ALT 8 Alkaline Phosphatase 180 H Troponin I Total Protein 6.2 Albumin 2.8 L Globulin 3.4 Albumin/Globulin Ratio 0.8 L Serum , Qual NEGATIVE - Radiology Results Results: CT SCAN OF THE ABDOMEN = EFFUSIONS OF THE LUNGS, LARGE ASCITES, DISTENDED GALLBLADDER AND GALL STONES. DISTENDED BLADDER. ED Assessment - Assessment General Assessment: acute abdomen ED Septic Shock - . Is Septic Shock (SBP<90, OR Lactate>4 mmol\L) present?: No - <6hrs of presentation: Vital Signs: Vital Signs - 8 hr 03/12/18 12:35 Temp 97.9 F HR 87 RR 18 BP 125/87 O2 Sat % 98 ED Reassessment (Disposition) - Reassessment Reassessment Condition:: Unchanged - Diagnosis Diagnosis:: DISTENDED GALL BLADDER AND STONES ELECTROLYTE IMBALANCE EARLY RENAL FAILURE BILATERAL PLEURAL EFFUSIONS ANASARCA DEMENTIA URINARY TRACT INFECTION - Patient Disposition Discharge/Transfer:: Acute Care w/in this hosp Admitting Medical Physician:: Aman Martinez Condition at Disposition:: Improved
[2018-03-12 15:33] LABS: URINE SOURCE CLEAN C
[2018-03-12 15:41] LABS: URINE BILIRUBIN NEGATIVE (NEGATIVE); URINE BLOOD MODERATE (NEGATIVE); URINE GLUCOSE (UA) NEGATIVE (NEGATIVE); URINE KETONE NEGATIVE (NEGATIVE); URINE LEUKOCYTE ESTERASE TRACE (NEGATIVE); URINE MICROSCOPIC INDICATED? YES; URINE NITRATE POSITIVE (NEGATIVE); URINE PROTEIN 100 mg/dL (NEGATIVE); URINE UROBILINOGEN 0.2 E.U./dL (0.2 - 1.0)
[2018-03-12 16:15] LABS: URINE CLARITY HAZY (CLEAR); URINE COLOR YELLOW
[2018-03-12 16:19] LABS: URINE BACTERIA 4+ /hpf (NONE SEEN); URINE EPITHELIAL CELLS FEW /lpf (FEW)
[2018-03-12 19:51] LABS: AMPHETAMINE URINE NEGATIVE (NEGATIVE); BARBITURATES URINE NEGATIVE (NEGATIVE); BENZODIAZEPINES QUAL URINE POSITIVE (NEGATIVE); CANNABINOID THC NEGATIVE (NEGATIVE); COCAINE METABOLITE QUAL URINE NEGATIVE (NEGATIVE); METHADONE URINE NEGATIVE (NEGATIVE); METHAMPHETAMINES QUAL URINE NEGATIVE (NEGATIVE); OPIATES (MORPHINE) QUAL. URINE NEGATIVE (NEGATIVE); PHENCYCLIDINE (PCP) URINE NEGATIVE (NEGATIVE); TRICYCLICS (TCA) QUAL. URINE NEGATIVE (NEGATIVE)
[2018-03-12] MEDS: cefTRIAXone 1 GM in Sodium Chloride 0.9% 50 ML IV SCH (20:10)
--- NOTE | 2018-03-13 01:18 | Consultation ---
DATE OF CONSULTATION: 03/12/2018 PATIENT'S AGE: 27 years. SEX: Female. RACE: . HISTORY OF PRESENT ILLNESS: This patient has been admitted here for gallstones and possibly gallbladder surgery. I was asked to see the patient because of the fact the patient has some elevated BUN and elevated creatinine along with higher potassium. TSH was also noted to be high 8.16, so suggesting some underlying hypothyroidism. On evaluating the patient, the patient is not arousable. She is not able to speak. She is having verbal dysarthria. The patient looks like she is under the influence of drugs. As far as I remember that 2 months ago or 3 months ago when I saw her she had been using drugs, difficult to say what kind of drugs they were on the out thing, but she was using street drugs and she has been addicted to that for quite some period of time. In view of the fact there is no much history could be obtained the only thing is being expressed from biochemical data and clinical examination what could be. The patient at present is poorly responsive if at all, not arousable, cannot make out any sense of what she is saying. The patient's vitals have been reported to me as "normal." Neurologically, the patient is also doing some shaking postures. The chemistry available revealed sodium 134, potassium 5.5, chloride 105, carbon dioxide 21.3, BUN 46 and creatinine 2.0. Liver enzymes are not elevated at the present time except for alkaline phosphatase borderline high. This could be due to gallbladder disease. TSH is also high at 8.16. Need to repeat it and may need to be on a thyroid medication. Bilirubin is 1.6 and glucose is 91. Considering this, the patient needs to be observed for drug intoxication. A drug screen should be done. I discussed with Dr. Aman Martinez who is a primary physician. As far as I remember the patient had a similar or same amount of renal dysfunction on last visit and that is why I got to see her last time. Suggest patient to have a drug screen, both blood and urine and if she is having drug use the patient needs to be in a drug rehabilitation on treatment plan. The patient's to do any surgery at this time when she is under drug intoxication may not be very feasible. Suggest the patient should be observed and observe closely and has been conveyed to the charge nurse and also to Dr. Martinez. [facility]# [id number]
[2018-03-13] MEDS ORDERED: Acetaminophen 500 MG TAB PO PRN (02:54)
[2018-03-13] MEDS ORDERED: Fleet Enema 135 mL RC PRN (02:54)
[2018-03-13] MEDS ORDERED: Hydrocodone/APAP 5mg/325mg Tab PO PRN (02:54)
[2018-03-13] MEDS ORDERED: Magnesium Hydroxide (MOM) 30 mL UDC PO PRN (02:56)
--- NOTE | 2018-03-13 04:56 | History & Physical ---
ADMIT DATE: 03/12/2018 INFECTIOUS DISEASE CONSULTATION REFERRING PHYSICIAN: Justin Christine MD This is a note done to do Infectious Disease consultation as well as History and Physical to cover Dr. Christine. CHIEF COMPLAINT: Distended abdomen. HISTORY OF PRESENT ILLNESS: The patient is a 27-year-old female with a past medical history of diabetes mellitus type 2, history of cardiopulmonary arrest, cardiomyopathy with a poor ejection fraction 10-15%, status post PEA, AICD placement at [facility] [place], hypothyroidism, CHF, brought in from a nursing facility for distended abdomen. On initial evaluation, the patient's temperature was 97.9 degrees Fahrenheit and WBC count was 9,000. Urinalysis suggested mild pyuria and bacteriuria. CT scan of the abdomen showed ____ of the lung, large ascites, ____ gallstone and distended bladder. So, the patient was admitted with the diagnosis of cholecystitis and acute abdomen. Rocephin IV was started. Continue all the medication. The patient's creatinine was also elevated at 2.0. PAST MEDICAL HISTORY: As mentioned above, history of cardiopulmonary arrest, with low ejection fraction 10-15%, AICD placement at [facility], history of C. diff colitis, diabetes mellitus type 2, hypothyroidism, CHF. ALLERGIES: NKDA. MEDICATIONS: See medication reconciliation sheet. Antibiotic hoffmann, the patient is on Rocephin. SOCIAL HISTORY: The patient lives in a [place] [facility] [place]. No history of smoking, alcohol or drug use. FAMILY HISTORY: Not available. REVIEW OF SYSTEMS: GENERAL: The patient denies any fever or chills. HEENT: No diplopia, no photophobia, no sore throat. RESPIRATORY: No cough, no shortness of breath. CARDIOVASCULAR: No chest pain or palpitations. GASTROINTESTINAL: No nausea, no vomiting, no diarrhea, no constipation. GENITOURINARY: No dysuria. NEUROLOGIC: No headache, no dizziness, no focal weakness. PHYSICAL EXAMINATION: VITAL SIGNS: Current vital signs shows temperature is 96.6 degrees Fahrenheit, pulse 73, respirations 18, blood pressure 109/84. GENERAL: The patient is comfortable, lying in the bed, not in acute distress. HEENT: Head is normocephalic, atraumatic. Oral cavity moist, pink tongue. Eyes: No pallor, no icterus. Pupils PERRLA, EOMI. NECK: Supple, no JVD, no carotid bruit. Trachea in midline. CHEST: Bilateral breath sounds. No crackles or wheezing. HEART: S1, S2 within normal limits. Regular rhythm. No murmur, no gallop. ABDOMEN: Soft, nontender, nondistended. Bowel sounds present. EXTREMITIES: No cyanosis, no clubbing, no edema. NEUROLOGICAL: Alert and awake, oriented x 3. LABORATORY DATA: Current lab shows WBC count is 9000, hemoglobin 15.1 and hematocrit 46.7, platelets are 227,000, neutrophil is 86%. Sodium is 134, potassium 5.5, chloride 105, bicarbonate is 21.3, BUN is 46, creatinine 2.0. Glucose is 91. LFTs are reviewed. IMPRESSION: 1. Cholecystitis. Cholelithiasis. 2. Diabetes mellitus type 2. 3. Cardiomyopathy with a low ejection fraction of 10-15%. AICD placement. 4. History of cardiopulmonary arrest. 5. Diabetes mellitus type 2. 6. Hypothyroidism. 7. Acute renal failure, acute kidney injury. RECOMMENDATIONS: We will continue Rocephin. Consult Dr. Dominguez. Consult GI, Dr. Rockwell, consult Renal, Dr. Liao and Dr. Clayton. Depending on the patient's status, we will define further antibiotic therapy. JOB# [id number] [facility]
[2018-03-13 06:48] LABS: HEMATOCRIT 46.9 % (41.0-60); HEMOGLOBIN 15.4 gm/dL (12-16); MEAN CELL VOLUME 87.7 fl (81-100); MEAN CORPUSCULAR HEMOGLOBIN 28.8 pg (27.0-31.0); MEAN CORPUSCULAR HGB CONC 32.8 pg (28.0-36.0); MEAN PLATELET VOLUME 7.4 fl; PLATELET COUNT 223 Th/cmm (150-400); RED BLOOD COUNT 5.35 Mil/cmm (3.80-5.10); RED CELL DISTRIBUTION WIDTH 19.4 % (11.5-20.0); WHITE BLOOD COUNT 8.2 Th/cmm (4.8-10.8)
[2018-03-13 07:09] LABS: ALB/GLOB RATIO 0.9 (1.0-1.8); ALBUMIN 2.8 gm/dL (3.7-5.3); ANION GAP 13.2 (7.0-16.0); BILIRUBIN,TOTAL 1.6 mg/dL (0.3-1.0); CARBON DIOXIDE 17.5 mEq/L (21.0-31.0); CREATININE - SERUM 1.7 mg/dL (0.6-1.2); GFR AFRICAN-AMERICAN 45.7 ml/min (>90); GFR NON AFRICAN-AMERICAN 37.8 ml/min; POTASSIUM SERUM 5.7 mEq/L (3.5-5.1); TOTAL PROTEIN,SERUM 6.1 gm/dL (6.0-8.3)
[2018-03-13 07:33] LABS: EOSINOPHIL 4 % (0-5); LYMPHOCYTE 4 % (20-50); MONOCYTE 5 % (2-10); NEUTROPHILS 87 % (40-80); PLATELET ESTIMATE ADEQUATE (NORMAL)
[2018-03-13] MEDS ORDERED: INSULIN HUMAN REGULAR 100 UNITS/ML UNIT SUBQ SCH (08:00)
[2018-03-13] MEDS: INSULIN ASPART SLIDING SCALE 100 UNITS/ML UNIT SUBQ SCH ×4 (08:22→21:33)
[2018-03-13] MEDS ORDERED: CRANBERRY FRUIT PO SCH (09:00)
[2018-03-13] MEDS ORDERED: Non-Formulary Item 1 EA (Fluoxetine Hcl [Prozac] 40 MG) PO SCH (09:00)
[2018-03-13] MEDS: Aspirin 81mg Chewable Tab PO SCH (09:41)
--- NOTE | 2018-03-13 10:02 | Diagnostic Imaging Report ---
Exam: CT examination of the abdomen pelvis. HISTORY: Distention of the abdomen. Total DLP equals 518 CTDI equals 9.4 Findings: Multiple contiguous thin section the abdomen pelvis obtained from lower thorax to pubic symphysis without administration of oral or intravenous contrast material, no prior studies available comparison. The study demonstrates bilateral pleural effusion and basilar atelectasis. The examination the abdomen demonstrates large amount of free ascitic fluid in the abdomen. Inhomogeneous liver architecture might be related to cirrhosis changes, CT examination with contrast material is recommended. The spleen is intact. There is evidence of distended gallbladder and cholelithiasis. The increase is intact. The kidneys demonstrate no evidence of obstructive uropathy or nephrolithiasis. The bowel gas to be nonspecific. There is no evidence of diverticular disease of diverticulitis. Urinary bladder is distended. Extensive calcification of the uterus appreciated. Large amount of fecal content is noted in the rectum. There is evidence for anasarca. Bony structures demonstrate no evidence for lytic or blastic changes. IMPRESSION: Inhomogeneous liver parenchyma throughout suggestive of cirrhotic changes although CT examination with contrast material is recommended. Bilateral effusions Large amount of ascitic fluid Distended gallbladder, cholelithiasis Anasarca.
--- NOTE | 2018-03-13 12:08 | Consultation ---
DATE OF CONSULTATION: 03/13/2018 REASON FOR CONSULTATION: Gallstones, abnormal liver enzymes. HISTORY OF PRESENT ILLNESS: This consult was obtained through the courtesy of Dr. Christine for this 27-year-old with extensive history including diabetes, hyperlipidemia and cardiopulmonary arrest who lives in a long-term, who was admitted to the hospital for abdominal pain and distended abdomen. Apparently, the patient has a long history of diabetes. She had a cardiopulmonary arrest with cardiomyopathy, with ejection fraction per reports 10-15%, has an AICD, history of also congestive heart failure, hypothyroidism, admitted for abdominal distention, had a CAT scan, which showed ascites, but also cholelithiasis. The patient to me does not have any insight into her condition and she is not oriented, but to the nursing staff she was oriented in the morning, but when I am asking her she states she was coming from home. She was in an airplane yesterday. She does not know where she is or what day is today. The patient has some abdominal pain. PAST MEDICAL HISTORY: Diabetes, cardiomyopathy, cardiopulmonary arrest, hypothyroidism, CHF. PAST SURGICAL HISTORY: She denies, but she has an AICD. SOCIAL HISTORY: Denies smoking, alcohol or drugs. FAMILY HISTORY: Noncontributory and unobtainable. ALLERGIES: No known drug allergies. REVIEW OF SYSTEMS: Unreliable, but she denies any hematemesis, melena, or hematochezia. No change in bowel habits and she is stating that the abdomen is distended recently. MEDICATIONS: The patient is on Tylenol, aspirin, Coreg, Colace, Rocephin, Prozac, glipizide, insulin, Zestril, Ativan, milk of magnesia, Glucophage, enema, Fleet enemas, and Aldactone. PHYSICAL EXAMINATION: GENERAL: The patient is awake, oriented to self. VITAL SIGNS: Blood pressure is 126/94, heart rate 95, respiratory rate 18, and temperature is 96.6. HEAD AND NECK: Pupils reactive to light. Extraocular muscles could not be tested. Oral cavity, no lesion. NECK: Supple. CHEST: Good air entry. LUNGS: Showed bilateral rhonchi. CARDIOVASCULAR: Regular rate and rhythm. No murmur or gallop. ABDOMEN: Distended, soft, positive bowel sound. There is ascites. EXTREMITIES: Lower extremities, no edema. CENTRAL NERVOUS SYSTEM: Grossly nonfocal. LABORATORY DATA: Bilirubin 1.6. AST 10, ALT 8, alkaline phosphatase 180. Blood sugar ranged between 43 in the morning to 150 after given some orange juice. PT is 11.9 seconds, platelets are normal 227 and rest of CBC unremarkable. Albumin is 2.8. Urine protein is 100. The patient had urine screen which was positive for benzodiazepine. Had a CAT scan, which showed pleural effusion, ascites, and heterogeneous liver texture. IMPRESSION: A 27-year-old with multiple medical problems, now with cholelithiasis, arthritis, increased bilirubin, and alkaline phosphatase. ASSESSMENT AND PLAN: 1. Ascites. This is most likely from cardiac origin. The patient most likely has cardiac cirrhosis or liver congestion from low ejection fraction. She also could have some kidney element to this. So at this time, I recommend to do a paracentesis and check fluid for albumin, cell count, cytology and follow from there. 2. Abnormal liver enzymes, which is bilirubin and alkaline phosphatase, could be from liver disease, but also could be cholelithiasis even though less likely. So there is a surgical consultation and we can get a HIDA scan. 3. Cholelithiasis, even if it can cause some abdominal pain it will not be responsible for the ascites, so this might be two separate issues. These gallstones might be asymptomatic, so at this time would like to do the paracentesis first and evaluate the condition before doing surgery and HIDA scan might be of help. 4. Other medical problems such as cardiomyopathy, diabetes, renal disease, etc., as per Dr. Christine. Thank you Dr. Christine for asking me to participate in the care of the patient. If you have any further questions, please let me know. JOB# [id number]
--- NOTE | 2018-03-13 17:39 | Consultation ---
DATE OF CONSULTATION: 03/13/2018 SURGICAL CONSULTATION REFERRING PHYSICIAN: Dr. Aman Martinez. REASON FOR CONSULTATION: Gallstones. Thank you for referring this patient to me. HISTORY OF PRESENT ILLNESS: This is a 27-year-old female who came in because of marked abdominal distention and discomfort. She denied pain in the right upper quadrant or nausea and vomiting. Apparently, she has been other hospitals for similar complaints. PAST MEDICAL HISTORY: Includes diabetes mellitus, cardiopulmonary arrest, cardiomyopathy with ejection fraction of 10%-15% and AICD in place. She is a very poorly informed patient however. LABORATORY STUDIES: Now shows the CBC to be essentially normal. The liver function tests are abnormal with a bilirubin 1.6, alkaline phosphatase 170 and albumin is low at 2.8. The BUN is 41, creatinine of 2.0. Potassium is high at 5.7. CT scan of the abdomen shows ascites and gallstones. There appears to be no evidence of cirrhosis at this point or diverticular disease. There is large amount of fecal content in the rectum. PHYSICAL EXAMINATION: The patient is awake, but may be poorly oriented. She wants to see her mother, but otherwise examination shows only marked abdominal distention, no tenderness in the right upper quadrant; however, rest of the abdominal cavity, no masses noted. RECOMMENDATIONS: The patient consults is noted by GI as well as Nephrology. This patient is not a candidate for surgery as she will not tolerate any kind of anesthesia with her ejection fraction as low as 10-15%. We will defer any surgery until she improves with her heart function, but otherwise the patient is asymptomatic of gallstone disease at this point. We will follow with you. [facility]# [id number]
[2018-03-13] MEDS: cefTRIAXone 1 GM in Sodium Chloride 0.9% 50 ML IV SCH (18:06)
--- NOTE | 2018-03-13 22:04 | Infectious Disease Prog Note ---
Infectious Disease Subjective - Review of Systems Service Date: 03/13/18 Subjective: There is no new change, no fever. Nephrology consult, Dr Clayton has signed off the case. no fever, no abdominal pain, still hypercalemic and creatinine is improving. Infectious Disease Objective - Results Result Diagrams: 03/14/18 04:15 03/14/18 13:00 Recent Labs: Laboratory Last Values WBC 8.2 Th/cmm (4.8-10.8) 03/13/18 05:42 RBC 5.35 Mil/cmm (3.80-5.10) H 03/13/18 05:42 Hgb 15.4 gm/dL (12-16) 03/13/18 05:42 Hct 46.9 % (41.0-60) 03/13/18 05:42 MCV 87.7 fl (81-100) 03/13/18 05:42 MCH 28.8 pg (27.0-31.0) 03/13/18 05:42 MCHC Differential 32.8 pg (28.0-36.0) 03/13/18 05:42 RDW 19.4 % (11.5-20.0) 03/13/18 05:42 Plt Count 223 Th/cmm (150-400) 03/13/18 05:42 MPV 7.4 fl 03/13/18 05:42 Add Manual Diff YES 03/13/18 05:42 Neutrophils % [employer] 03/13/18 05:42 Band Neutrophils % 1 % (0-10) 03/12/18 12:45 Lymphocytes % [employer] 03/13/18 05:42 Monocytes % [employer] 03/13/18 05:42 Eosinophils % [employer] 03/13/18 05:42 Basophils % [employer] 03/13/18 05:42 Neutrophils (Manual) 87 % (40-80) H 03/13/18 05:42 Lymphocytes 4 % (20-50) L 03/13/18 05:42 Monocytes 5 % (2-10) 03/13/18 05:42 Eosinophils 4 % (0-5) 03/13/18 05:42 Basophils 1 % (0-3) 03/12/18 12:45 Platelet Estimate ADEQUATE (NORMAL) 03/13/18 05:42 PT 11.9 SECONDS (9.5-11.5) H 03/12/18 12:45 INR 1.15 (0.5-1.4) 03/12/18 12:45 Sodium 135 mEq/L (136-145) L 03/13/18 05:42 Potassium 5.7 mEq/L (3.5-5.1) H 03/13/18 05:42 Chloride 110 mEq/L (98-107) H 03/13/18 05:42 Carbon Dioxide 17.5 mEq/L (21.0-31.0) L 03/13/18 05:42 Anion Gap 13.2 (7.0-16.0) 03/13/18 05:42 BUN 41 mg/dL (7-25) H 03/13/18 05:42 Creatinine 1.7 mg/dL (0.6-1.2) H 03/13/18 05:42 Est GFR ( Amer) 45.7 ml/min (>90) 03/13/18 05:42 Est GFR (Non-Af Amer) 37.8 ml/min 03/13/18 05:42 BUN/Creatinine Ratio 24.1 03/13/18 05:42 Glucose 53 mg/dL (70-105) L 03/13/18 05:42 POC Glucose 100 MG/DL (70 - 105) 03/13/18 21:32 Calcium 9.0 mg/dL (8.6-10.3) 03/13/18 05:42 Total Bilirubin 1.6 mg/dL (0.3-1.0) H 03/13/18 05:42 AST 13 U/L (13-39) 03/13/18 05:42 ALT 10 U/L (7-52) 03/13/18 05:42 Alkaline Phosphatase 170 U/L (34-104) H 03/13/18 05:42 Troponin I 0.03 ng/mL (0.01-0.05) 03/12/18 12:45 Total Protein 6.1 gm/dL (6.0-8.3) 03/13/18 05:42 Albumin 2.8 gm/dL (3.7-5.3) L 03/13/18 05:42 Globulin 3.3 gm/dL 03/13/18 05:42 Albumin/Globulin Ratio 0.9 (1.0-1.8) L 03/13/18 05:42 TSH 8.16 uIU/ml (0.34-5.60) H 03/12/18 12:45 Serum , Qual NEGATIVE (NEGATIVE) 03/12/18 12:45 Urine Source CLEAN C 03/12/18 15:17 Urine Color YELLOW 03/12/18 15:17 Urine Clarity HAZY (CLEAR) 03/12/18 15:17 Urine pH 5.0 (4.6 - 8.0) 03/12/18 15:17 Ur Specific [place] >= 1.030 (1.005-1.030) 03/12/18 15:17 Urine Protein 100 mg/dL (NEGATIVE) H 03/12/18 15:17 Urine Glucose (UA) NEGATIVE mg/dL (NEGATIVE) 03/12/18 15:17 Urine Ketones NEGATIVE mg/dL (NEGATIVE) 03/12/18 15:17 Urine Blood MODERATE (NEGATIVE) H 03/12/18 15:17 Urine Nitrate POSITIVE (NEGATIVE) H 03/12/18 15:17 Urine Bilirubin NEGATIVE (NEGATIVE) 03/12/18 15:17 Urine Urobilinogen 0.2 E.U./dL (0.2 - 1.0) 03/12/18 15:17 Ur Leukocyte Esterase TRACE (NEGATIVE) H 03/12/18 15:17 Urine RBC 2-5 /hpf (0-5) 03/12/18 15:17 Urine WBC 6-10 /hpf (0-5) H 03/12/18 15:17 Ur Epithelial Cells FEW /lpf (FEW) 03/12/18 15:17 Urine Bacteria 4+ /hpf (NONE SEEN) H 03/12/18 15:17 Urine Opiates Screen NEGATIVE (NEGATIVE) 03/12/18 15:30 Urine Methadone Screen NEGATIVE (NEGATIVE) 03/12/18 15:30 Ur Barbiturates Screen NEGATIVE (NEGATIVE) 03/12/18 15:30 Ur Tricyclics Screen NEGATIVE (NEGATIVE) 03/12/18 15:30 Ur Phencyclidine Scrn NEGATIVE (NEGATIVE) 03/12/18 15:30 Amphetamines Screen NEGATIVE (NEGATIVE) 03/12/18 15:30 U Methamphetamines Scrn NEGATIVE (NEGATIVE) 03/12/18 15:30 U Benzodiazepines Scrn POSITIVE (NEGATIVE) H 03/12/18 15:30 U Cocaine Metab Screen NEGATIVE (NEGATIVE) 03/12/18 15:30 U Cannabinoids Screen NEGATIVE (NEGATIVE) 03/12/18 15:30 - Physical Exam Vitals and I&O: Vital Signs Temp 96.6 F 03/13/18 20:00 Pulse 52 03/13/18 20:00 Resp 18 03/13/18 20:00 BP 108/81 03/13/18 20:00 Pulse Ox 83 03/13/18 20:00 Intake & Output 03/13/18 03/13/18 03/14/18 06:59 18:59 06:59 Intake Total 50 480 Balance 50 480 Weight (lbs) 65.771 kg 65.771 kg Intake: Intake, IV Amount 50 [id number] 1 gm In 50 Sodium Chloride 0.9% 50 ml @ 100 mls/hr IV Q24HR [facility] Rx#:[id number] Oral 480 Other: # Voids 3 # Bowel Movements 0 Weight Source Bedscale Bedscale Active Medications: Current Medications Acetaminophen (Tylenol) 650 mg PO Q4H PRN PRN Reason: Pain or Fever >101 Stop: 05/12/18 02:53 Acetaminophen/Hydrocodone Bitart ([place] 5mg/325mg) 1 tab PO Q4H PRN PRN Reason: Pain (Severe) Stop: 05/12/18 02:53 Last Admin: 03/13/18 20:07 Dose: 1 tab Aspirin (Aspirin Chewable) 81 mg PO DAILY [facility] Stop: 05/12/18 08:59 Last Admin: 03/13/18 09:41 Dose: 81 mg Carvedilol (Coreg) 3.125 mg PO BIDWM [facility] Stop: 05/12/18 07:59 Last Admin: 03/13/18 17:59 Dose: Not Given Docusate Sodium (Colace) 100 mg PO DAILY [facility] Stop: 05/12/18 08:59 Last Admin: 03/13/18 09:42 Dose: 100 mg Fluoxetine HCl (Prozac) 40 mg PO DAILY [facility] Stop: 05/12/18 08:59 Last Admin: 03/13/18 09:40 Dose: 40 mg Glipizide (Glucotrol) 5 mg PO BID [facility] Stop: 05/12/18 08:59 Last Admin: 03/13/18 17:46 Dose: Not Given Ceftriaxone Sodium 1 gm/ (Sodium Chloride) 50 mls @ 100 mls/hr IV Q24HR [facility] Stop: 05/11/18 17:59 Last Admin: 03/13/18 18:06 Dose: 100 mls/hr Insulin Aspart (Novolog Insulin Sliding Scale) 0 units SUBQ ACHS [facility]; Protocol Stop: 05/12/18 07:29 Last Admin: 03/13/18 21:33 Dose: Not Given Lisinopril (Zestril) 5 mg PO DAILY [facility] Stop: 05/12/18 08:59 Last Admin: 03/13/18 09:41 Dose: 5 mg Lorazepam (Ativan) 0.5 mg PO DAILY [facility]; Protocol Stop: 05/12/18 08:59 Last Admin: 03/13/18 09:42 Dose: 0.5 mg Magnesium Hydroxide (Milk Of Magnesia) 30 ml PO HS PRN PRN Reason: Constipation Stop: 05/12/18 02:55 Metformin HCl (Glucophage) 500 mg PO BIDWM [facility] Stop: 05/12/18 07:59 Last Admin: 03/13/18 18:00 Dose: Not Given Sodium Phosphate (Fleet Enema) 1 ml RC Q48H PRN PRN Reason: Constipation Stop: 05/12/18 02:53 Spironolactone (Aldactone) 25 mg PO BID [facility] Stop: 05/12/18 08:59 Last Admin: 03/13/18 18:01 Dose: Not Given General: no acute distress, well developed, well nourished HEENT: atraumatic, normocephalic, PERRLA Neck: supple, no thyromegaly, no lymphadenopathy Cardiovascular: S1S2, regular Lungs: clear to auscultation bilaterally, clear to percussion Abdomen: soft, no tender, no distended, no hepatomegaly Extremities: no cyanosis, no clubbing, no edema Neurological: awake, alert, oriented Skin: intact Infectious Disease Assmt/Plan - Assessment Assessment: 1. Cholecystitis. Cholelithiasis. 2. Diabetes mellitus type 2. 3. Cardiomyopathy with a low ejection fraction of 10-15%. AICD placement. 4. History of cardiopulmonary arrest. 5. Diabetes mellitus type 2. 6. Hypothyroidism. 7. Acute renal failure, acute kidney injury. - Plan Plan: Continue the same treatment. WIll consult Dr Hernandez Martinez, who has seen the patient in the past. Surgical consult has deferred the surgery at this time.
[2018-03-14 05:34] LABS: % BASOPHILS 0.9 % (0.0-2.0); % LYMPHOCYTES 5.4 % (20.0-50.0); % MONOCYTES 5.5 % (2.0-10.0); % NEUTROPHILS 85.2 % (40.0-80.0); BASOPHILE ABSOLUTE 0.1 Th/cumm (0-0.2); EOSINOPHILE ABSOLUTE 0.3 Th/cmm (0.1-0.4); HEMATOCRIT 44.1 % (41.0-60); HEMOGLOBIN 14.5 gm/dL (12-16); LYMPHOCYTE ABSOLUTE 0.5 Th/cmm (1.5-3.0); MEAN CELL VOLUME 87.5 fl (81-100); MEAN CORPUSCULAR HEMOGLOBIN 28.7 pg (27.0-31.0); MEAN CORPUSCULAR HGB CONC 32.8 pg (28.0-36.0); MEAN PLATELET VOLUME 7.6 fl; MONOCYTE ABSOLUTE 0.5 Th/cmm (0.3-1.0); NEUTROPHILE ABSOLUTE 7.7 Th/cmm (1.8-8.0); PLATELET COUNT 228 Th/cmm (150-400); RED BLOOD COUNT 5.04 Mil/cmm (3.80-5.10); RED CELL DISTRIBUTION WIDTH 19.3 % (11.5-20.0); WHITE BLOOD COUNT 9.1 Th/cmm (4.8-10.8)
[2018-03-14] MEDS: INSULIN ASPART SLIDING SCALE 100 UNITS/ML UNIT SUBQ SCH ×4 (06:35→21:02)
[2018-03-14 09:18] LABS: ALB/GLOB RATIO 0.9 (1.0-1.8); ALBUMIN 2.9 gm/dL (3.7-5.3); ANION GAP 15.5 (7.0-16.0); BILIRUBIN,TOTAL 1.3 mg/dL (0.3-1.0); CALCIUM SERUM 8.9 mg/dL (8.6-10.3); GFR AFRICAN-AMERICAN 37.9 ml/min (>90); GFR NON AFRICAN-AMERICAN 31.3 ml/min; POTASSIUM SERUM 5.5 mEq/L (3.5-5.1)
[2018-03-14] MEDS: Aspirin 81mg Chewable Tab PO SCH (09:55)
[2018-03-14 09:58] LABS: BAND NEUTROPHILE 1 % (0-10); BASOPHIL 0 % (0-3); EOSINOPHIL 1 % (0-5); LYMPHOCYTE 11 % (20-50); MONOCYTE 4 % (2-10); NEUTROPHILS 83 % (40-80)
[2018-03-14] MEDS ORDERED: Probiotic Screen MC PRN (11:36)
--- NOTE | 2018-03-14 12:12 | Diagnostic Imaging Report ---
Ultrasound-guided paracentesis HISTORY: Ascites COMPARISON: CT abdomen and pelvis on 03/12/2018 FINDINGS: Informed consent was obtained and sterile techniques were utilized. Using ultrasound guidance, 3.95 liters of daiana-colored fluid was drained from the right lower quadrant. The patient tolerated the procedure with no immediate complications. IMPRESSION: Successful ultrasound guided paracentesis as above.
[2018-03-14 14:22] LABS: BF APPEARANCE CLEAR; BF COLOR YELLOW; BF RBC 117 /cumm; BF WBC 143 /cumm; BODY FLUID SOURCE PARACENTHESIS
[2018-03-14 15:32] LABS: BF MONOCYTES 12 %
[2018-03-14] MEDS: Meropenem 500 MG in Sodium Chloride 0.9% 100 ML IV SCH ×2 (15:33→23:14)
--- NOTE | 2018-03-14 17:19 | GI Progress Note ---
Subjective - Review of Systems Service Date: 03/14/18 Events since last encounter: S/P paracentesis Subjective: Better Objective - Results Result Diagrams: 03/14/18 04:15 03/14/18 13:00 Recent Labs: Laboratory Last Values WBC 9.1 Th/cmm (4.8-10.8) 03/14/18 04:15 RBC 5.04 Mil/cmm (3.80-5.10) 03/14/18 04:15 Hgb 14.5 gm/dL (12-16) 03/14/18 04:15 Hct 44.1 % (41.0-60) 03/14/18 04:15 MCV 87.5 fl (81-100) 03/14/18 04:15 MCH 28.7 pg (27.0-31.0) 03/14/18 04:15 MCHC Differential 32.8 pg (28.0-36.0) 03/14/18 04:15 RDW 19.3 % (11.5-20.0) 03/14/18 04:15 Plt Count 228 Th/cmm (150-400) 03/14/18 04:15 MPV 7.6 fl 03/14/18 04:15 Add Manual Diff YES 03/13/18 05:42 Neutrophils % 85.2 % (40.0-80.0) H 03/14/18 04:15 Band Neutrophils % 1 % (0-10) 03/14/18 04:15 Lymphocytes % 5.4 % (20.0-50.0) L 03/14/18 04:15 Monocytes % 5.5 % (2.0-10.0) 03/14/18 04:15 Eosinophils % 3.0 % (0.0-5.0) 03/14/18 04:15 Basophils % 0.9 % (0.0-2.0) 03/14/18 04:15 Neutrophils (Manual) 83 % (40-80) H 03/14/18 04:15 Lymphocytes 11 % (20-50) L 03/14/18 04:15 Monocytes 4 % (2-10) 03/14/18 04:15 Eosinophils 1 % (0-5) 03/14/18 04:15 Basophils 0 % (0-3) 03/14/18 04:15 Platelet Estimate ADEQUATE (NORMAL) 03/13/18 05:42 PT 11.9 SECONDS (9.5-11.5) H 03/12/18 12:45 INR 1.15 (0.5-1.4) 03/12/18 12:45 PTT (Actin FS) 28.2 SECONDS (26.0-38.0) 03/14/18 04:15 Sodium 137 mEq/L (136-145) 03/14/18 04:15 Potassium 5.5 mEq/L (3.5-5.1) H 03/14/18 13:00 Chloride 107 mEq/L (98-107) 03/14/18 04:15 Carbon Dioxide 20.0 mEq/L (21.0-31.0) L 03/14/18 04:15 Anion Gap 15.5 (7.0-16.0) 03/14/18 04:15 BUN 40 mg/dL (7-25) H 03/14/18 04:15 Creatinine 2.0 mg/dL (0.6-1.2) H 03/14/18 04:15 Est GFR ( Amer) 37.9 ml/min (>90) 03/14/18 04:15 Est GFR (Non-Af Amer) 31.3 ml/min 03/14/18 04:15 BUN/Creatinine Ratio 20.0 03/14/18 04:15 Glucose 81 mg/dL (70-105) 03/14/18 04:15 POC Glucose 187 MG/DL (70 - 105) H 03/14/18 11:20 Calcium 8.9 mg/dL (8.6-10.3) 03/14/18 04:15 Total Bilirubin 1.3 mg/dL (0.3-1.0) H 03/14/18 04:15 AST 9 U/L (13-39) L 03/14/18 04:15 ALT 8 U/L (7-52) 03/14/18 04:15 Alkaline Phosphatase 162 U/L (34-104) H 03/14/18 04:15 Troponin I 0.03 ng/mL (0.01-0.05) 03/12/18 12:45 Total Protein 6.0 gm/dL (6.0-8.3) 03/14/18 04:15 Albumin 2.9 gm/dL (3.7-5.3) L 03/14/18 04:15 Globulin 3.1 gm/dL 03/14/18 04:15 Albumin/Globulin Ratio 0.9 (1.0-1.8) L 03/14/18 04:15 TSH 8.16 uIU/ml (0.34-5.60) H 03/12/18 12:45 Serum , Qual NEGATIVE (NEGATIVE) 03/12/18 12:45 Urine Source CLEAN C 03/12/18 15:17 Urine Color YELLOW 03/12/18 15:17 Urine Clarity HAZY (CLEAR) 03/12/18 15:17 Urine pH 5.0 (4.6 - 8.0) 03/12/18 15:17 Ur Specific [place] >= 1.030 (1.005-1.030) 03/12/18 15:17 Urine Protein 100 mg/dL (NEGATIVE) H 03/12/18 15:17 Urine Glucose (UA) NEGATIVE mg/dL (NEGATIVE) 03/12/18 15:17 Urine Ketones NEGATIVE mg/dL (NEGATIVE) 03/12/18 15:17 Urine Blood MODERATE (NEGATIVE) H 03/12/18 15:17 Urine Nitrate POSITIVE (NEGATIVE) H 03/12/18 15:17 Urine Bilirubin NEGATIVE (NEGATIVE) 03/12/18 15:17 Urine Urobilinogen 0.2 E.U./dL (0.2 - 1.0) 03/12/18 15:17 Ur Leukocyte Esterase TRACE (NEGATIVE) H 03/12/18 15:17 Urine RBC 2-5 /hpf (0-5) 03/12/18 15:17 Urine WBC 6-10 /hpf (0-5) H 03/12/18 15:17 Ur Epithelial Cells FEW /lpf (FEW) 03/12/18 15:17 Urine Bacteria 4+ /hpf (NONE SEEN) H 03/12/18 15:17 Fluid Source PARACENTHESIS 03/14/18 10:40 Fluid Color YELLOW 03/14/18 10:40 Fluid Appearance CLEAR 03/14/18 10:40 Fluid WBC 143 /cumm 03/14/18 10:40 Fluid RBC 117 /cumm 03/14/18 10:40 Fluid Neutrophils 7 % 03/14/18 10:40 Fluid Lymphocytes 81 % 03/14/18 10:40 Fluid Monocytes 12 % 03/14/18 10:40 Fluid Total Protein 3.4 g/dL 03/14/18 10:40 Urine Opiates Screen NEGATIVE (NEGATIVE) 03/12/18 15:30 Urine Methadone Screen NEGATIVE (NEGATIVE) 03/12/18 15:30 Ur Barbiturates Screen NEGATIVE (NEGATIVE) 03/12/18 15:30 Ur Tricyclics Screen NEGATIVE (NEGATIVE) 03/12/18 15:30 Ur Phencyclidine Scrn NEGATIVE (NEGATIVE) 03/12/18 15:30 Amphetamines Screen NEGATIVE (NEGATIVE) 03/12/18 15:30 U Methamphetamines Scrn NEGATIVE (NEGATIVE) 03/12/18 15:30 U Benzodiazepines Scrn POSITIVE (NEGATIVE) H 03/12/18 15:30 U Cocaine Metab Screen NEGATIVE (NEGATIVE) 03/12/18 15:30 U Cannabinoids Screen NEGATIVE (NEGATIVE) 03/12/18 15:30 - Physical Exam Vitals and I&O: Vital Signs Temp 96.9 F 03/14/18 15:45 Pulse 95 03/14/18 15:45 Resp 18 03/14/18 15:45 BP 115/86 03/14/18 15:45 Pulse Ox 98 03/14/18 15:45 Intake & Output 03/13/18 03/14/18 03/14/18 18:59 06:59 18:59 Intake Total 530 Balance 530 Weight (lbs) 70.534 kg Intake: Oral 530 Other: # Voids 1 # Bowel Movements 0 Weight Source Bedscale Active Medications: Current Medications Acetaminophen (Tylenol) 650 mg PO Q4H PRN PRN Reason: Pain or Fever >101 Stop: 05/12/18 02:53 Acetaminophen/Hydrocodone Bitart ([place] 5mg/325mg) 1 tab PO Q4H PRN PRN Reason: Pain (Severe) Stop: 05/12/18 02:53 Last Admin: 03/13/18 20:07 Dose: 1 tab Aspirin (Aspirin Chewable) 81 mg PO DAILY [facility] Stop: 05/12/18 08:59 Last Admin: 03/14/18 09:55 Dose: 81 mg Carvedilol (Coreg) 3.125 mg PO BIDWM [facility] Stop: 05/12/18 07:59 Last Admin: 03/14/18 09:55 Dose: 3.125 mg Docusate Sodium (Colace) 100 mg PO DAILY [facility] Stop: 05/12/18 08:59 Last Admin: 03/14/18 09:55 Dose: 100 mg Fluoxetine HCl (Prozac) 40 mg PO DAILY [facility] Stop: 05/12/18 08:59 Last Admin: 03/14/18 09:54 Dose: 40 mg Glipizide (Glucotrol) 5 mg PO BID [facility] Stop: 05/12/18 08:59 Last Admin: 03/14/18 09:54 Dose: 5 mg Meropenem 500 mg/ Sodium (Chloride) 100 mls @ 100 mls/hr IV Q8H [facility] Stop: 05/13/18 13:59 Last Admin: 03/14/18 15:33 Dose: 100 mls/hr Insulin Aspart (Novolog Insulin Sliding Scale) 0 units SUBQ ACHS [facility]; Protocol Stop: 05/12/18 07:29 Last Admin: 03/14/18 12:35 Dose: Not Given Lactobacillus Rhamnosus (Culturelle 15b) 1 each PO DAILY [facility] Stop: 05/13/18 13:59 Lisinopril (Zestril) 5 mg PO DAILY [facility] Stop: 05/12/18 08:59 Last Admin: 03/14/18 10:03 Dose: 5 mg Lorazepam (Ativan) 0.5 mg PO DAILY [facility]; Protocol Stop: 05/12/18 08:59 Last Admin: 03/14/18 09:54 Dose: 0.5 mg Magnesium Hydroxide (Milk Of Magnesia) 30 ml PO HS PRN PRN Reason: Constipation Stop: 05/12/18 02:55 Metformin HCl (Glucophage) 500 mg PO BIDWM [facility] Stop: 05/12/18 07:59 Last Admin: 03/14/18 10:01 Dose: 500 mg Miscellaneous (Probiotic Screen) 1 ea MC PRN PRN PRN Reason: PROTOCOL Stop: 05/13/18 11:35 Miscellaneous (Clinical Monitoring) 1 ea MC DAILY PRN PRN Reason: RENAL- METFORMIN Stop: 05/13/18 14:45 Mupirocin (Bactroban Oint) 1 appl NS BID [facility] Stop: 03/19/18 09:01 Sodium Phosphate (Fleet Enema) 1 ml RC Q48H PRN PRN Reason: Constipation Stop: 05/12/18 02:53 General: Alert, No acute distress Cardiovascular: Regular rate, Normal S1, Normal S2 Lungs: Clear to auscultation, Normal air movement Abdomen: Bowel sounds, Soft, Tender (not tender) Assessment/Plan - Assessment Assessment: 1. Ascites 2. Abnormal LFTs 3. Gall stones - Plan Plan: 1. Ascites S/P Paracentesis. Most likely cardiac. No SBP 2. Abnormal LFTs Could be passive liver congestion. 3. Gall stones Unlikely to be causing the abnormal LFTs Await the HIDA scan
[2018-03-14] MEDS: Lactobacillus Rhamnosus GG 15 Billion CFU CAP.SPRINK PO SCH (17:32)
[2018-03-14 18:22] VITALS: BP 127/51
[2018-03-15] MEDS: Meropenem 500 MG in Sodium Chloride 0.9% 100 ML IV SCH ×3 (05:09→21:17)
[2018-03-15 05:14] LABS: % BASOPHILS 0.2 % (0.0-2.0); % EOSINOPHILS 3.3 % (0.0-5.0); % MONOCYTES 4.4 % (2.0-10.0); % NEUTROPHILS 87.1 % (40.0-80.0); EOSINOPHILE ABSOLUTE 0.3 Th/cmm (0.1-0.4); HEMOGLOBIN 14.3 gm/dL (12-16); LYMPHOCYTE ABSOLUTE 0.5 Th/cmm (1.5-3.0); MEAN CORPUSCULAR HEMOGLOBIN 28.5 pg (27.0-31.0); MEAN CORPUSCULAR HGB CONC 32.4 pg (28.0-36.0); MEAN PLATELET VOLUME 7.3 fl; MONOCYTE ABSOLUTE 0.4 Th/cmm (0.3-1.0); NEUTROPHILE ABSOLUTE 8.4 Th/cmm (1.8-8.0); PLATELET COUNT 218 Th/cmm (150-400); RED BLOOD COUNT 5.01 Mil/cmm (3.80-5.10); RED CELL DISTRIBUTION WIDTH 19.1 % (11.5-20.0); WHITE BLOOD COUNT 9.6 Th/cmm (4.8-10.8)
[2018-03-15 06:03] LABS: ALB/GLOB RATIO 0.9 (1.0-1.8); ALBUMIN 2.7 gm/dL (3.7-5.3); BILIRUBIN,TOTAL 1.4 mg/dL (0.3-1.0); CALCIUM SERUM 8.7 mg/dL (8.6-10.3); CARBON DIOXIDE 22.9 mEq/L (21.0-31.0); CREATININE - SERUM 1.7 mg/dL (0.6-1.2); GFR AFRICAN-AMERICAN 45.7 ml/min (>90); GFR NON AFRICAN-AMERICAN 37.8 ml/min; POTASSIUM SERUM 4.9 mEq/L (3.5-5.1); TOTAL PROTEIN,SERUM 5.7 gm/dL (6.0-8.3)
[2018-03-15 06:37] LABS: BAND NEUTROPHILE 2 % (0-10); EOSINOPHIL 4 % (0-5); LYMPHOCYTE 8 % (20-50); MONOCYTE 4 % (2-10); NEUTROPHILS 82 % (40-80)
[2018-03-15] MEDS: INSULIN ASPART SLIDING SCALE 100 UNITS/ML UNIT SUBQ SCH ×4 (07:30→20:22)
--- NOTE | 2018-03-15 07:59 | Diagnostic Imaging Report ---
Radionuclide biliary scan (HIDA scan) HISTORY: Cholelithiasis 4.2 mCi technetium labeled biliary nuclide used in the exam. There is normal hepatic uptake and clearance. There is excretion through the common bile duct and into the small bowel. No gallbladder activity was seen through 90 minutes. Findings may be associated with cystic duct obstruction. Clinical correlation is needed. IMPRESSION: 1. Nonvisualization of the gallbladder that may be associated with cystic duct obstruction. Clinical correlation is needed.
--- NOTE | 2018-03-15 09:50 | GI Progress Note ---
Subjective - Review of Systems Service Date: 03/15/18 Events since last encounter: No events Subjective: Better. No abd pain Objective - Results Result Diagrams: 03/15/18 04:35 03/15/18 04:35 Recent Labs: Laboratory Last Values WBC 9.6 Th/cmm (4.8-10.8) 03/15/18 04:35 RBC 5.01 Mil/cmm (3.80-5.10) 03/15/18 04:35 Hgb 14.3 gm/dL (12-16) 03/15/18 04:35 Hct 44.0 % (41.0-60) 03/15/18 04:35 MCV 88.0 fl (81-100) 03/15/18 04:35 MCH 28.5 pg (27.0-31.0) 03/15/18 04:35 MCHC Differential 32.4 pg (28.0-36.0) 03/15/18 04:35 RDW 19.1 % (11.5-20.0) 03/15/18 04:35 Plt Count 218 Th/cmm (150-400) 03/15/18 04:35 MPV 7.3 fl 03/15/18 04:35 Add Manual Diff YES 03/13/18 05:42 Neutrophils % 87.1 % (40.0-80.0) H 03/15/18 04:35 Band Neutrophils % 2 % (0-10) 03/15/18 04:35 Lymphocytes % 5.0 % (20.0-50.0) L 03/15/18 04:35 Monocytes % 4.4 % (2.0-10.0) 03/15/18 04:35 Eosinophils % 3.3 % (0.0-5.0) 03/15/18 04:35 Basophils % 0.2 % (0.0-2.0) 03/15/18 04:35 Neutrophils (Manual) 82 % (40-80) H 03/15/18 04:35 Lymphocytes 8 % (20-50) L 03/15/18 04:35 Monocytes 4 % (2-10) 03/15/18 04:35 Eosinophils 4 % (0-5) 03/15/18 04:35 Basophils 0 % (0-3) 03/14/18 04:15 Platelet Estimate ADEQUATE (NORMAL) 03/13/18 05:42 PT 11.9 SECONDS (9.5-11.5) H 03/12/18 12:45 INR 1.15 (0.5-1.4) 03/12/18 12:45 PTT (Actin FS) 28.2 SECONDS (26.0-38.0) 03/14/18 04:15 Sodium 139 mEq/L (136-145) 03/15/18 04:35 Potassium 4.9 mEq/L (3.5-5.1) 03/15/18 04:35 Chloride 107 mEq/L (98-107) 03/15/18 04:35 Carbon Dioxide 22.9 mEq/L (21.0-31.0) 03/15/18 04:35 Anion Gap 14.0 (7.0-16.0) 03/15/18 04:35 BUN 37 mg/dL (7-25) H 03/15/18 04:35 Creatinine 1.7 mg/dL (0.6-1.2) H 03/15/18 04:35 Est GFR ( Amer) 45.7 ml/min (>90) 03/15/18 04:35 Est GFR (Non-Af Amer) 37.8 ml/min 03/15/18 04:35 BUN/Creatinine Ratio 21.8 03/15/18 04:35 Glucose 91 mg/dL (70-105) 03/15/18 04:35 POC Glucose 73 MG/DL (70 - 105) 03/15/18 06:43 Calcium 8.7 mg/dL (8.6-10.3) 03/15/18 04:35 Total Bilirubin 1.4 mg/dL (0.3-1.0) H 03/15/18 04:35 AST 9 U/L (13-39) L 03/15/18 04:35 ALT 8 U/L (7-52) 03/15/18 04:35 Alkaline Phosphatase 140 U/L (34-104) H 03/15/18 04:35 Troponin I 0.03 ng/mL (0.01-0.05) 03/12/18 12:45 B-Natriuretic Peptide 3920.0 pg/mL (5.0-100.0) H 03/15/18 04:35 Total Protein 5.7 gm/dL (6.0-8.3) L 03/15/18 04:35 Albumin 2.7 gm/dL (3.7-5.3) L 03/15/18 04:35 Globulin 3.0 gm/dL 03/15/18 04:35 Albumin/Globulin Ratio 0.9 (1.0-1.8) L 03/15/18 04:35 TSH 8.16 uIU/ml (0.34-5.60) H 03/12/18 12:45 Serum , Qual NEGATIVE (NEGATIVE) 03/12/18 12:45 Urine Source CLEAN C 03/12/18 15:17 Urine Color YELLOW 03/12/18 15:17 Urine Clarity HAZY (CLEAR) 03/12/18 15:17 Urine pH 5.0 (4.6 - 8.0) 03/12/18 15:17 Ur Specific [place] >= 1.030 (1.005-1.030) 03/12/18 15:17 Urine Protein 100 mg/dL (NEGATIVE) H 03/12/18 15:17 Urine Glucose (UA) NEGATIVE mg/dL (NEGATIVE) 03/12/18 15:17 Urine Ketones NEGATIVE mg/dL (NEGATIVE) 03/12/18 15:17 Urine Blood MODERATE (NEGATIVE) H 03/12/18 15:17 Urine Nitrate POSITIVE (NEGATIVE) H 03/12/18 15:17 Urine Bilirubin NEGATIVE (NEGATIVE) 03/12/18 15:17 Urine Urobilinogen 0.2 E.U./dL (0.2 - 1.0) 03/12/18 15:17 Ur Leukocyte Esterase TRACE (NEGATIVE) H 03/12/18 15:17 Urine RBC 2-5 /hpf (0-5) 03/12/18 15:17 Urine WBC 6-10 /hpf (0-5) H 03/12/18 15:17 Ur Epithelial Cells FEW /lpf (FEW) 03/12/18 15:17 Urine Bacteria 4+ /hpf (NONE SEEN) H 03/12/18 15:17 Fluid Source PARACENTHESIS 03/14/18 10:40 Fluid Color YELLOW 03/14/18 10:40 Fluid Appearance CLEAR 03/14/18 10:40 Fluid WBC 143 /cumm 03/14/18 10:40 Fluid RBC 117 /cumm 03/14/18 10:40 Fluid Neutrophils 7 % 03/14/18 10:40 Fluid Lymphocytes 81 % 03/14/18 10:40 Fluid Monocytes 12 % 03/14/18 10:40 Fluid Total Protein 3.4 g/dL 03/14/18 10:40 Urine Opiates Screen NEGATIVE (NEGATIVE) 03/12/18 15:30 Urine Methadone Screen NEGATIVE (NEGATIVE) 03/12/18 15:30 Ur Barbiturates Screen NEGATIVE (NEGATIVE) 03/12/18 15:30 Ur Tricyclics Screen NEGATIVE (NEGATIVE) 03/12/18 15:30 Ur Phencyclidine Scrn NEGATIVE (NEGATIVE) 03/12/18 15:30 Amphetamines Screen NEGATIVE (NEGATIVE) 03/12/18 15:30 U Methamphetamines Scrn NEGATIVE (NEGATIVE) 03/12/18 15:30 U Benzodiazepines Scrn POSITIVE (NEGATIVE) H 03/12/18 15:30 U Cocaine Metab Screen NEGATIVE (NEGATIVE) 03/12/18 15:30 U Cannabinoids Screen NEGATIVE (NEGATIVE) 03/12/18 15:30 - Physical Exam Vitals and I&O: Vital Signs Temp 98.1 F 03/15/18 07:38 Pulse 97 03/15/18 07:57 Resp 18 03/15/18 07:38 BP 113/80 03/15/18 07:57 Pulse Ox 98 03/15/18 07:38 Intake & Output 03/14/18 03/15/18 03/15/18 18:59 06:59 18:59 Intake Total 100 920 Balance 100 920 Weight (lbs) 44.951 kg 47.344 kg Intake: Intake, IV Amount 100 200 Meropenem 500 mg In 100 200 Sodium Chloride 0.9% 100 ml @ 100 mls/hr IV Q8H [facility] Rx#:[id number] Oral 720 Other: # Voids 3 # Bowel Movements 1 Stool Characteristics Formed Weight Source Bedscale Active Medications: Current Medications Acetaminophen (Tylenol) 650 mg PO Q4H PRN PRN Reason: Pain or Fever >101 Stop: 05/12/18 02:53 Acetaminophen/Hydrocodone Bitart ([place] 5mg/325mg) 1 tab PO Q4H PRN PRN Reason: Pain (Severe) Stop: 05/12/18 02:53 Last Admin: 03/13/18 20:07 Dose: 1 tab Aspirin (Aspirin Chewable) 81 mg PO DAILY [facility] Stop: 05/12/18 08:59 Last Admin: 03/14/18 09:55 Dose: 81 mg Carvedilol (Coreg) 3.125 mg PO BIDWM [facility] Stop: 05/12/18 07:59 Last Admin: 03/15/18 07:57 Dose: 3.125 mg Docusate Sodium (Colace) 100 mg PO DAILY [facility] Stop: 05/12/18 08:59 Last Admin: 03/14/18 09:55 Dose: 100 mg Fluoxetine HCl (Prozac) 40 mg PO DAILY [facility] Stop: 05/12/18 08:59 Last Admin: 03/14/18 09:54 Dose: 40 mg Glipizide (Glucotrol) 5 mg PO BID [facility] Stop: 05/12/18 08:59 Last Admin: 03/14/18 17:32 Dose: 5 mg Meropenem 500 mg/ Sodium (Chloride) 100 mls @ 100 mls/hr IV Q8H [facility] Stop: 05/13/18 13:59 Last Infusion: 03/15/18 06:14 Dose: Infused Insulin Aspart (Novolog Insulin Sliding Scale) 0 units SUBQ ACHS [facility]; Protocol Stop: 05/12/18 07:29 Last Admin: 03/15/18 07:30 Dose: Not Given Lactobacillus Rhamnosus (Culturelle 15b) 1 each PO DAILY [facility] Stop: 05/13/18 13:59 Last Admin: 03/14/18 17:32 Dose: 1 each Lisinopril (Zestril) 5 mg PO DAILY [facility] Stop: 05/12/18 08:59 Last Admin: 03/14/18 10:03 Dose: 5 mg Lorazepam (Ativan) 0.5 mg PO DAILY [facility]; Protocol Stop: 05/12/18 08:59 Last Admin: 03/14/18 09:54 Dose: 0.5 mg Magnesium Hydroxide (Milk Of Magnesia) 30 ml PO HS PRN PRN Reason: Constipation Stop: 05/12/18 02:55 Metformin HCl (Glucophage) 500 mg PO BIDWM [facility] Stop: 05/12/18 07:59 Last Admin: 03/15/18 07:57 Dose: 500 mg Miscellaneous (Probiotic Screen) 1 ea MC PRN PRN PRN Reason: PROTOCOL Stop: 05/13/18 11:35 Miscellaneous (Clinical Monitoring) 1 ea MC DAILY PRN PRN Reason: RENAL- METFORMIN Stop: 05/13/18 14:45 Mupirocin (Bactroban Oint) 1 appl NS BID [facility] Stop: 03/19/18 09:01 Last Admin: 03/14/18 17:34 Dose: 1 appl Sodium Phosphate (Fleet Enema) 1 ml RC Q48H PRN PRN Reason: Constipation Stop: 05/12/18 02:53 General: Alert, No acute distress Cardiovascular: Regular rate, Normal S1, Normal S2 Lungs: Clear to auscultation, Normal air movement Abdomen: Bowel sounds, Soft, Other (Not tender) Assessment/Plan - Assessment Assessment: 1. Ascites 2. Abnormal LFTs 3. Gall stones - Plan Plan: 1. Ascites S/P Paracentesis. Most likely cardiac. No SBP 2. Abnormal LFTs Could be passive liver congestion . Improving 3. Gall stones HIDA is positive Unlikely to be causing the abnormal LFTs Await surgical inputs
--- NOTE | 2018-03-15 11:31 | General Progress Note ---
Subjective - Review of Systems Service Date: 03/15/18 Events since last encounter: 4000 cc removed by paracentesis HIDA non-visualization of GB patient not a candidate for surgery - extremely high risk Objective - Results Result Diagrams: 03/15/18 04:35 03/15/18 04:35 Recent Labs: Laboratory Last Values WBC 9.6 Th/cmm (4.8-10.8) 03/15/18 04:35 RBC 5.01 Mil/cmm (3.80-5.10) 03/15/18 04:35 Hgb 14.3 gm/dL (12-16) 03/15/18 04:35 Hct 44.0 % (41.0-60) 03/15/18 04:35 MCV 88.0 fl (81-100) 03/15/18 04:35 MCH 28.5 pg (27.0-31.0) 03/15/18 04:35 MCHC Differential 32.4 pg (28.0-36.0) 03/15/18 04:35 RDW 19.1 % (11.5-20.0) 03/15/18 04:35 Plt Count 218 Th/cmm (150-400) 03/15/18 04:35 MPV 7.3 fl 03/15/18 04:35 Add Manual Diff YES 03/13/18 05:42 Neutrophils % 87.1 % (40.0-80.0) H 03/15/18 04:35 Band Neutrophils % 2 % (0-10) 03/15/18 04:35 Lymphocytes % 5.0 % (20.0-50.0) L 03/15/18 04:35 Monocytes % 4.4 % (2.0-10.0) 03/15/18 04:35 Eosinophils % 3.3 % (0.0-5.0) 03/15/18 04:35 Basophils % 0.2 % (0.0-2.0) 03/15/18 04:35 Neutrophils (Manual) 82 % (40-80) H 03/15/18 04:35 Lymphocytes 8 % (20-50) L 03/15/18 04:35 Monocytes 4 % (2-10) 03/15/18 04:35 Eosinophils 4 % (0-5) 03/15/18 04:35 Basophils 0 % (0-3) 03/14/18 04:15 Platelet Estimate ADEQUATE (NORMAL) 03/13/18 05:42 PT 11.9 SECONDS (9.5-11.5) H 03/12/18 12:45 INR 1.15 (0.5-1.4) 03/12/18 12:45 PTT (Actin FS) 28.2 SECONDS (26.0-38.0) 03/14/18 04:15 Sodium 139 mEq/L (136-145) 03/15/18 04:35 Potassium 4.9 mEq/L (3.5-5.1) 03/15/18 04:35 Chloride 107 mEq/L (98-107) 03/15/18 04:35 Carbon Dioxide 22.9 mEq/L (21.0-31.0) 03/15/18 04:35 Anion Gap 14.0 (7.0-16.0) 03/15/18 04:35 BUN 37 mg/dL (7-25) H 03/15/18 04:35 Creatinine 1.7 mg/dL (0.6-1.2) H 03/15/18 04:35 Est GFR ( Amer) 45.7 ml/min (>90) 03/15/18 04:35 Est GFR (Non-Af Amer) 37.8 ml/min 03/15/18 04:35 BUN/Creatinine Ratio 21.8 03/15/18 04:35 Glucose 91 mg/dL (70-105) 03/15/18 04:35 POC Glucose 115 MG/DL (70 - 105) H 03/15/18 11:21 Calcium 8.7 mg/dL (8.6-10.3) 03/15/18 04:35 Total Bilirubin 1.4 mg/dL (0.3-1.0) H 03/15/18 04:35 AST 9 U/L (13-39) L 03/15/18 04:35 ALT 8 U/L (7-52) 03/15/18 04:35 Alkaline Phosphatase 140 U/L (34-104) H 03/15/18 04:35 Troponin I 0.03 ng/mL (0.01-0.05) 03/12/18 12:45 B-Natriuretic Peptide 3920.0 pg/mL (5.0-100.0) H 03/15/18 04:35 Total Protein 5.7 gm/dL (6.0-8.3) L 03/15/18 04:35 Albumin 2.7 gm/dL (3.7-5.3) L 03/15/18 04:35 Globulin 3.0 gm/dL 03/15/18 04:35 Albumin/Globulin Ratio 0.9 (1.0-1.8) L 03/15/18 04:35 TSH 8.16 uIU/ml (0.34-5.60) H 03/12/18 12:45 Serum , Qual NEGATIVE (NEGATIVE) 03/12/18 12:45 Urine Source CLEAN C 03/12/18 15:17 Urine Color YELLOW 03/12/18 15:17 Urine Clarity HAZY (CLEAR) 03/12/18 15:17 Urine pH 5.0 (4.6 - 8.0) 03/12/18 15:17 Ur Specific [place] >= 1.030 (1.005-1.030) 03/12/18 15:17 Urine Protein 100 mg/dL (NEGATIVE) H 03/12/18 15:17 Urine Glucose (UA) NEGATIVE mg/dL (NEGATIVE) 03/12/18 15:17 Urine Ketones NEGATIVE mg/dL (NEGATIVE) 03/12/18 15:17 Urine Blood MODERATE (NEGATIVE) H 03/12/18 15:17 Urine Nitrate POSITIVE (NEGATIVE) H 03/12/18 15:17 Urine Bilirubin NEGATIVE (NEGATIVE) 03/12/18 15:17 Urine Urobilinogen 0.2 E.U./dL (0.2 - 1.0) 03/12/18 15:17 Ur Leukocyte Esterase TRACE (NEGATIVE) H 03/12/18 15:17 Urine RBC 2-5 /hpf (0-5) 03/12/18 15:17 Urine WBC 6-10 /hpf (0-5) H 03/12/18 15:17 Ur Epithelial Cells FEW /lpf (FEW) 03/12/18 15:17 Urine Bacteria 4+ /hpf (NONE SEEN) H 03/12/18 15:17 Fluid Source PARACENTHESIS 03/14/18 10:40 Fluid Color YELLOW 03/14/18 10:40 Fluid Appearance CLEAR 03/14/18 10:40 Fluid WBC 143 /cumm 03/14/18 10:40 Fluid RBC 117 /cumm 12/10/18 10:40 Fluid Neutrophils 7 % 03/14/18 10:40 Fluid Lymphocytes 81 % 03/14/18 10:40 Fluid Monocytes 12 % 03/14/18 10:40 Fluid Total Protein 3.4 g/dL 03/14/18 10:40 Urine Opiates Screen NEGATIVE (NEGATIVE) 03/12/18 15:30 Urine Methadone Screen NEGATIVE (NEGATIVE) 03/12/18 15:30 Ur Barbiturates Screen NEGATIVE (NEGATIVE) 03/12/18 15:30 Ur Tricyclics Screen NEGATIVE (NEGATIVE) 03/12/18 15:30 Ur Phencyclidine Scrn NEGATIVE (NEGATIVE) 03/12/18 15:30 Amphetamines Screen NEGATIVE (NEGATIVE) 03/12/18 15:30 U Methamphetamines Scrn NEGATIVE (NEGATIVE) 03/12/18 15:30 U Benzodiazepines Scrn POSITIVE (NEGATIVE) H 03/12/18 15:30 U Cocaine Metab Screen NEGATIVE (NEGATIVE) 03/12/18 15:30 U Cannabinoids Screen NEGATIVE (NEGATIVE) 03/12/18 15:30 - Physical Exam Vitals and I&O: Vital Signs Temp 96.4 F 03/15/18 11:21 Pulse 86 03/15/18 11:21 Resp 18 03/15/18 11:21 BP 111/85 03/15/18 11:21 Pulse Ox 99 03/15/18 11:21 Intake & Output 03/14/18 03/15/18 03/15/18 18:59 06:59 18:59 Intake Total 100 920 Balance 100 920 Weight (lbs) 44.951 kg 47.344 kg Intake: Intake, IV Amount 100 200 Meropenem 500 mg In 100 200 Sodium Chloride 0.9% 100 ml @ 100 mls/hr IV Q8H [facility] Rx#:[id number] Oral 720 Other: # Voids 3 # Bowel Movements 1 Stool Characteristics Formed Weight Source Bedscale Active Medications: Current Medications Acetaminophen (Tylenol) 650 mg PO Q4H PRN PRN Reason: Pain or Fever >101 Stop: 05/12/18 02:53 Acetaminophen/Hydrocodone Bitart ([place] 5mg/325mg) 1 tab PO Q4H PRN PRN Reason: Pain (Severe) Stop: 05/12/18 02:53 Last Admin: 03/13/18 20:07 Dose: 1 tab Aspirin (Aspirin Chewable) 81 mg PO DAILY [facility] Stop: 05/12/18 08:59 Last Admin: 03/14/18 09:55 Dose: 81 mg Carvedilol (Coreg) 3.125 mg PO BIDWM [facility] Stop: 05/12/18 07:59 Last Admin: 03/15/18 07:57 Dose: 3.125 mg Docusate Sodium (Colace) 100 mg PO DAILY [facility] Stop: 05/12/18 08:59 Last Admin: 03/14/18 09:55 Dose: 100 mg Fluoxetine HCl (Prozac) 40 mg PO DAILY [facility] Stop: 05/12/18 08:59 Last Admin: 03/14/18 09:54 Dose: 40 mg Glipizide (Glucotrol) 5 mg PO BID [facility] Stop: 05/12/18 08:59 Last Admin: 03/14/18 17:32 Dose: 5 mg Meropenem 500 mg/ Sodium (Chloride) 100 mls @ 100 mls/hr IV Q8H [facility] Stop: 05/13/18 13:59 Last Infusion: 03/15/18 06:14 Dose: Infused Insulin Aspart (Novolog Insulin Sliding Scale) 0 units SUBQ ACHS [facility]; Protocol Stop: 05/12/18 07:29 Last Admin: 03/15/18 07:30 Dose: Not Given Lactobacillus Rhamnosus (Culturelle 15b) 1 each PO DAILY [facility] Stop: 05/13/18 13:59 Last Admin: 03/14/18 17:32 Dose: 1 each Lisinopril (Zestril) 5 mg PO DAILY [facility] Stop: 05/12/18 08:59 Last Admin: 03/14/18 10:03 Dose: 5 mg Lorazepam (Ativan) 0.5 mg PO DAILY [facility]; Protocol Stop: 05/12/18 08:59 Last Admin: 03/14/18 09:54 Dose: 0.5 mg Magnesium Hydroxide (Milk Of Magnesia) 30 ml PO HS PRN PRN Reason: Constipation Stop: 05/12/18 02:55 Metformin HCl (Glucophage) 500 mg PO BIDWM [facility] Stop: 05/12/18 07:59 Last Admin: 03/15/18 07:57 Dose: 500 mg Miscellaneous (Probiotic Screen) 1 ea MC PRN PRN PRN Reason: PROTOCOL Stop: 05/13/18 11:35 Miscellaneous (Clinical Monitoring) 1 ea MC DAILY PRN PRN Reason: RENAL- METFORMIN Stop: 05/13/18 14:45 Mupirocin (Bactroban Oint) 1 appl NS BID [facility] Stop: 03/19/18 09:01 Last Admin: 03/14/18 17:34 Dose: 1 appl Sodium Phosphate (Fleet Enema) 1 ml RC Q48H PRN PRN Reason: Constipation Stop: 05/12/18 02:53 General: Alert, No acute distress Cardiovascular: Regular rate, Normal S1, Normal S2 Lungs: Clear to auscultation, Normal air movement Abdomen: Bowel sounds, Soft, Other (Not tender)
--- NOTE | 2018-03-15 13:06 | General Progress Note ---
Subjective - Review of Systems Service Date: 03/15/18 Subjective: awake, verbal, catches breath while talking Objective - Results Result Diagrams: 03/15/18 04:35 03/15/18 04:35 Recent Labs: Laboratory Last Values WBC 9.6 Th/cmm (4.8-10.8) 03/15/18 04:35 RBC 5.01 Mil/cmm (3.80-5.10) 03/15/18 04:35 Hgb 14.3 gm/dL (12-16) 03/15/18 04:35 Hct 44.0 % (41.0-60) 03/15/18 04:35 MCV 88.0 fl (81-100) 03/15/18 04:35 MCH 28.5 pg (27.0-31.0) 03/15/18 04:35 MCHC Differential 32.4 pg (28.0-36.0) 03/15/18 04:35 RDW 19.1 % (11.5-20.0) 03/15/18 04:35 Plt Count 218 Th/cmm (150-400) 03/15/18 04:35 MPV 7.3 fl 03/15/18 04:35 Add Manual Diff YES 03/13/18 05:42 Neutrophils % 87.1 % (40.0-80.0) H 03/15/18 04:35 Band Neutrophils % 2 % (0-10) 03/15/18 04:35 Lymphocytes % 5.0 % (20.0-50.0) L 03/15/18 04:35 Monocytes % 4.4 % (2.0-10.0) 03/15/18 04:35 Eosinophils % 3.3 % (0.0-5.0) 03/15/18 04:35 Basophils % 0.2 % (0.0-2.0) 03/15/18 04:35 Neutrophils (Manual) 82 % (40-80) H 03/15/18 04:35 Lymphocytes 8 % (20-50) L 03/15/18 04:35 Monocytes 4 % (2-10) 03/15/18 04:35 Eosinophils 4 % (0-5) 03/15/18 04:35 Basophils 0 % (0-3) 03/14/18 04:15 Platelet Estimate ADEQUATE (NORMAL) 03/13/18 05:42 PT 11.9 SECONDS (9.5-11.5) H 03/12/18 12:45 INR 1.15 (0.5-1.4) 03/12/18 12:45 PTT (Actin FS) 28.2 SECONDS (26.0-38.0) 03/14/18 04:15 Sodium 139 mEq/L (136-145) 03/15/18 04:35 Potassium 4.9 mEq/L (3.5-5.1) 03/15/18 04:35 Chloride 107 mEq/L (98-107) 03/15/18 04:35 Carbon Dioxide 22.9 mEq/L (21.0-31.0) 03/15/18 04:35 Anion Gap 14.0 (7.0-16.0) 03/15/18 04:35 BUN 37 mg/dL (7-25) H 03/15/18 04:35 Creatinine 1.7 mg/dL (0.6-1.2) H 03/15/18 04:35 Est GFR ( Amer) 45.7 ml/min (>90) 03/15/18 04:35 Est GFR (Non-Af Amer) 37.8 ml/min 03/15/18 04:35 BUN/Creatinine Ratio 21.8 03/15/18 04:35 Glucose 91 mg/dL (70-105) 03/15/18 04:35 POC Glucose 115 MG/DL (70 - 105) H 03/15/18 11:21 Calcium 8.7 mg/dL (8.6-10.3) 03/15/18 04:35 Total Bilirubin 1.4 mg/dL (0.3-1.0) H 03/15/18 04:35 AST 9 U/L (13-39) L 03/15/18 04:35 ALT 8 U/L (7-52) 03/15/18 04:35 Alkaline Phosphatase 140 U/L (34-104) H 03/15/18 04:35 Troponin I 0.03 ng/mL (0.01-0.05) 03/12/18 12:45 B-Natriuretic Peptide 3920.0 pg/mL (5.0-100.0) H 03/15/18 04:35 Total Protein 5.7 gm/dL (6.0-8.3) L 03/15/18 04:35 Albumin 2.7 gm/dL (3.7-5.3) L 03/15/18 04:35 Globulin 3.0 gm/dL 03/15/18 04:35 Albumin/Globulin Ratio 0.9 (1.0-1.8) L 03/15/18 04:35 TSH 8.16 uIU/ml (0.34-5.60) H 03/12/18 12:45 Serum , Qual NEGATIVE (NEGATIVE) 03/12/18 12:45 Urine Source CLEAN C 03/12/18 15:17 Urine Color YELLOW 03/12/18 15:17 Urine Clarity HAZY (CLEAR) 03/12/18 15:17 Urine pH 5.0 (4.6 - 8.0) 03/12/18 15:17 Ur Specific [place] >= 1.030 (1.005-1.030) 03/12/18 15:17 Urine Protein 100 mg/dL (NEGATIVE) H 03/12/18 15:17 Urine Glucose (UA) NEGATIVE mg/dL (NEGATIVE) 03/12/18 15:17 Urine Ketones NEGATIVE mg/dL (NEGATIVE) 03/12/18 15:17 Urine Blood MODERATE (NEGATIVE) H 03/12/18 15:17 Urine Nitrate POSITIVE (NEGATIVE) H 03/12/18 15:17 Urine Bilirubin NEGATIVE (NEGATIVE) 03/12/18 15:17 Urine Urobilinogen 0.2 E.U./dL (0.2 - 1.0) 03/12/18 15:17 Ur Leukocyte Esterase TRACE (NEGATIVE) H 03/12/18 15:17 Urine RBC 2-5 /hpf (0-5) 03/12/18 15:17 Urine WBC 6-10 /hpf (0-5) H 03/12/18 15:17 Ur Epithelial Cells FEW /lpf (FEW) 03/12/18 15:17 Urine Bacteria 4+ /hpf (NONE SEEN) H 03/12/18 15:17 Fluid Source PARACENTHESIS 03/14/18 10:40 Fluid Color YELLOW 03/14/18 10:40 Fluid Appearance CLEAR 03/14/18 10:40 Fluid WBC 143 /cumm 03/14/18 10:40 Fluid RBC 117 /cumm 03/14/18 10:40 Fluid Neutrophils 7 % 03/14/18 10:40 Fluid Lymphocytes 81 % 03/14/18 10:40 Fluid Monocytes 12 % 03/14/18 10:40 Fluid Total Protein 3.4 g/dL 03/14/18 10:40 Urine Opiates Screen NEGATIVE (NEGATIVE) 03/12/18 15:30 Urine Methadone Screen NEGATIVE (NEGATIVE) 03/12/18 15:30 Ur Barbiturates Screen NEGATIVE (NEGATIVE) 03/12/18 15:30 Ur Tricyclics Screen NEGATIVE (NEGATIVE) 03/12/18 15:30 Ur Phencyclidine Scrn NEGATIVE (NEGATIVE) 03/12/18 15:30 Amphetamines Screen NEGATIVE (NEGATIVE) 03/12/18 15:30 U Methamphetamines Scrn NEGATIVE (NEGATIVE) 03/12/18 15:30 U Benzodiazepines Scrn POSITIVE (NEGATIVE) H 03/12/18 15:30 U Cocaine Metab Screen NEGATIVE (NEGATIVE) 03/12/18 15:30 U Cannabinoids Screen NEGATIVE (NEGATIVE) 03/12/18 15:30 - Physical Exam Vitals and I&O: Vital Signs Temp 96.4 F 03/15/18 11:21 Pulse 86 03/15/18 11:21 Resp 18 03/15/18 11:21 BP 111/85 03/15/18 11:21 Pulse Ox 99 03/15/18 11:21 Intake & Output 03/14/18 03/15/18 03/15/18 18:59 06:59 18:59 Intake Total 100 920 Balance 100 920 Weight (lbs) 44.951 kg 47.344 kg Intake: Intake, IV Amount 100 200 Meropenem 500 mg In 100 200 Sodium Chloride 0.9% 100 ml @ 100 mls/hr IV Q8H [facility] Rx#:[id number] Oral 720 Other: # Voids 3 # Bowel Movements 1 Stool Characteristics Formed Weight Source Bedscale Active Medications: Current Medications Acetaminophen (Tylenol) 650 mg PO Q4H PRN PRN Reason: Pain or Fever >101 Stop: 05/12/18 02:53 Acetaminophen/Hydrocodone Bitart ([place] 5mg/325mg) 1 tab PO Q4H PRN PRN Reason: Pain (Severe) Stop: 05/12/18 02:53 Last Admin: 03/13/18 20:07 Dose: 1 tab Aspirin (Aspirin Chewable) 81 mg PO DAILY [facility] Stop: 05/12/18 08:59 Last Admin: 03/14/18 09:55 Dose: 81 mg Carvedilol (Coreg) 3.125 mg PO BIDWM [facility] Stop: 05/12/18 07:59 Last Admin: 03/15/18 07:57 Dose: 3.125 mg Docusate Sodium (Colace) 100 mg PO DAILY [facility] Stop: 05/12/18 08:59 Last Admin: 03/14/18 09:55 Dose: 100 mg Fluoxetine HCl (Prozac) 40 mg PO DAILY [facility] Stop: 05/12/18 08:59 Last Admin: 03/14/18 09:54 Dose: 40 mg Furosemide (Lasix) 40 mg IVP BID [facility] Stop: 05/14/18 16:59 Glipizide (Glucotrol) 5 mg PO BID [facility] Stop: 05/12/18 08:59 Last Admin: 03/14/18 17:32 Dose: 5 mg Meropenem 500 mg/ Sodium (Chloride) 100 mls @ 100 mls/hr IV Q8H [facility] Stop: 05/13/18 13:59 Last Infusion: 03/15/18 06:14 Dose: Infused Insulin Aspart (Novolog Insulin Sliding Scale) 0 units SUBQ ACHS [facility]; Protocol Stop: 05/12/18 07:29 Last Admin: 03/15/18 07:30 Dose: Not Given Lactobacillus Rhamnosus (Culturelle 15b) 1 each PO DAILY [facility] Stop: 05/13/18 13:59 Last Admin: 03/14/18 17:32 Dose: 1 each Lisinopril (Zestril) 5 mg PO DAILY [facility] Stop: 05/12/18 08:59 Last Admin: 03/14/18 10:03 Dose: 5 mg Lorazepam (Ativan) 0.5 mg PO DAILY [facility]; Protocol Stop: 05/12/18 08:59 Last Admin: 03/14/18 09:54 Dose: 0.5 mg Magnesium Hydroxide (Milk Of Magnesia) 30 ml PO HS PRN PRN Reason: Constipation Stop: 05/12/18 02:55 Metformin HCl (Glucophage) 500 mg PO BIDWM [facility] Stop: 05/12/18 07:59 Last Admin: 03/15/18 07:57 Dose: 500 mg Miscellaneous (Probiotic Screen) 1 ea MC PRN PRN PRN Reason: PROTOCOL Stop: 05/13/18 11:35 Miscellaneous (Clinical Monitoring) 1 ea MC DAILY PRN PRN Reason: RENAL- METFORMIN Stop: 05/13/18 14:45 Mupirocin (Bactroban Oint) 1 appl NS BID [facility] Stop: 03/19/18 09:01 Last Admin: 03/14/18 17:34 Dose: 1 appl Sodium Phosphate (Fleet Enema) 1 ml RC Q48H PRN PRN Reason: Constipation Stop: 05/12/18 02:53 General: Alert, No acute distress HEENT: PERRLA, Mucous membr. moist/pink Neck: Supple, +2 carotid pulse wo bruit Cardiovascular: Regular rate, Normal S1, Normal S2 Lungs: Clear to auscultation, Normal air movement Abdomen: Bowel sounds, Soft, Other (Not tender) Extremities: no Edema Neurological: Sensation intact Skin: no Rash Psych/Mental Status: Mood NL Assessment/Plan - Assessment Assessment: CKD T2 DM EJF 10-20% CP Arrest, PEA S/P AICD Hypothyroid Comp CHF Acute Cholecystitis 2/2 Cholelithiasis Liver Cirrhosis - Plan Plan: Lab - Result Diagrams 03/15/18 04:35 03/15/18 04:35 Current Medications Acetaminophen (Tylenol) 650 mg PO Q4H PRN PRN Reason: Pain or Fever >101 Stop: 05/12/18 02:53 Acetaminophen/Hydrocodone Bitart ([place] 5mg/325mg) 1 tab PO Q4H PRN PRN Reason: Pain (Severe) Stop: 05/12/18 02:53 Last Admin: 03/13/18 20:07 Dose: 1 tab Aspirin (Aspirin Chewable) 81 mg PO DAILY [facility] Stop: 05/12/18 08:59 Last Admin: 03/14/18 09:55 Dose: 81 mg Carvedilol (Coreg) 3.125 mg PO BIDWM [facility] Stop: 05/12/18 07:59 Last Admin: 03/15/18 07:57 Dose: 3.125 mg Docusate Sodium (Colace) 100 mg PO DAILY [facility] Stop: 05/12/18 08:59 Last Admin: 03/14/18 09:55 Dose: 100 mg Fluoxetine HCl (Prozac) 40 mg PO DAILY [facility] Stop: 05/12/18 08:59 Last Admin: 12/10/18 09:54 Dose: 40 mg Furosemide (Lasix) 40 mg IVP BID [facility] Stop: 05/14/18 16:59 Glipizide (Glucotrol) 5 mg PO BID [facility] Stop: 05/12/18 08:59 Last Admin: 03/14/18 17:32 Dose: 5 mg Meropenem 500 mg/ Sodium (Chloride) 100 mls @ 100 mls/hr IV Q8H [facility] Stop: 05/13/18 13:59 Last Infusion: 03/15/18 06:14 Dose: Infused Insulin Aspart (Novolog Insulin Sliding Scale) 0 units SUBQ ACHS [facility]; Protocol Stop: 05/12/18 07:29 Last Admin: 03/15/18 07:30 Dose: Not Given Lactobacillus Rhamnosus (Culturelle 15b) 1 each PO DAILY [facility] Stop: 05/13/18 13:59 Last Admin: 03/14/18 17:32 Dose: 1 each Lisinopril (Zestril) 5 mg PO DAILY [facility] Stop: 05/12/18 08:59 Last Admin: 03/14/18 10:03 Dose: 5 mg Lorazepam (Ativan) 0.5 mg PO DAILY [facility]; Protocol Stop: 05/12/18 08:59 Last Admin: 03/14/18 09:54 Dose: 0.5 mg Magnesium Hydroxide (Milk Of Magnesia) 30 ml PO HS PRN PRN Reason: Constipation Stop: 05/12/18 02:55 Metformin HCl (Glucophage) 500 mg PO BIDWM [facility] Stop: 05/12/18 07:59 Last Admin: 03/15/18 07:57 Dose: 500 mg Miscellaneous (Probiotic Screen) 1 ea MC PRN PRN PRN Reason: PROTOCOL Stop: 05/13/18 11:35 Miscellaneous (Clinical Monitoring) 1 ea MC DAILY PRN PRN Reason: RENAL- METFORMIN Stop: 05/13/18 14:45 Mupirocin (Bactroban Oint) 1 appl NS BID [facility] Stop: 03/19/18 09:01 Last Admin: 03/14/18 17:34 Dose: 1 appl Sodium Phosphate (Fleet Enema) 1 ml RC Q48H PRN PRN Reason: Constipation Stop: 05/12/18 02:53 Lab - Result Diagrams 03/15/18 04:35 03/15/18 04:35 Kidney fnc stable W/ BUN/CR of 37/1.7 BNP elevated 2/2 to Decomp CHF/CKD continue diuretics f/u Electorytes, CXR
[2018-03-15] MEDS: Lactobacillus Rhamnosus GG 15 Billion CFU CAP.SPRINK PO SCH (13:13)
[2018-03-15] MEDS: Aspirin 81mg Chewable Tab PO SCH (13:13)
--- NOTE | 2018-03-15 15:02 | Pathology Report ---
[id number] Collection Date: 03/14/2018 Surgeon: Dr. Desiree Nath. Specimen Description: Paracentesis fluid for cytology. Gross Description: Received in seven large plastic containers is approximately 3950 mL of yellow watery fluid. A sales representative printing supplies portion is submitted for cytology processing. Microscopic Description: Examination of two cytospins and one cell block shows mostly acellular fibrinous material with only scattered inflammatory cells identified consisting of lymphocytes and neutrophils. Rare mesothelial cells are also appreciated. There is no evidence for atypia. Diagnosis: No cytologic evidence for malignancy, paracentesis fluid cytology. JOB# [id number] [facility]
--- NOTE | 2018-03-15 15:16 | Consultation ---
DATE OF CONSULTATION: 03/14/[address] Aman Martinez. HISTORY OF PRESENT ILLNESS: This is a 27-year-old female patient has known history of cardiomyopathy, congestive heart failure, systolic dysfunction with previous history of cardiopulmonary arrest with AICD placement. The patient came to the Emergency Room with abdominal distention with ascites. The patient also has elevated BNP level. PAST MEDICAL HISTORY: The patient has a history of cardiopulmonary arrest with AICD placement, ejection fraction 10-15%; history of C. diff colitis; hypothyroid; diabetes mellitus type 2; diabetic CKD, stage III; and possible substance abuse. FAMILY HISTORY: Unremarkable. SOCIAL HISTORY: No history of smoking, alcohol abuse. ALLERGIES: None. PHYSICAL EXAMINATION: VITAL SIGNS: Blood pressure 110/70, pulse 80, and respirations 28. HEAD: Normocephalic. No lumps or bumps. EYES: Pupils equal, reactive to light. Fundi show AV nicking, sclerae white, conjunctivae pink. NECK: Carotid 2+. Normal upstroke. JVD flat. Thyroid not palpable. Lymph nodes not palpable. CHEST: Shows increased AP diameter. No kyphosis, scoliosis. LUNGS: Bilateral rales. Decreased breath sounds both the bases. HEART: PMI sixth intercostal space with lateral to midclavicular line. S1, S2, S3, S4, soft systolic murmur. ABDOMEN: Soft. Liver, spleen not palpable. No organomegaly. Bowel sounds active. Abdomen is distended with ascites. NEUROLOGICAL: Unremarkable. EXTREMITIES: Peripheral pulses 2+ and pedal edema 2+. CLINICAL IMPRESSION: Congestive heart failure, systolic dysfunction, acute on chronic, ejection fraction 15%; nonischemic cardiomyopathy; cardiopulmonary arrest in the past with AICD placement; cholelithiasis with cholecystitis; diabetes mellitus type 2; diabetic CKD, stage III; and hypothyroid. PLAN: At the present time, we will continue on diuretics. We will get HIDA scan and monitor the patient closely for any arrhythmias. JOB# [id number]
--- NOTE | 2018-03-16 | Infectious Disease Prog Note ---
Infectious Disease Subjective - Review of Systems Service Date: 03/15/18 Subjective: There is no new change, no fever. Infectious Disease Objective - Results Result Diagrams: 03/15/18 04:35 03/15/18 04:35 Recent Labs: Laboratory Last Values WBC 9.6 Th/cmm (4.8-10.8) 03/15/18 04:35 RBC 5.01 Mil/cmm (3.80-5.10) 03/15/18 04:35 Hgb 14.3 gm/dL (12-16) 03/15/18 04:35 Hct 44.0 % (41.0-60) 03/15/18 04:35 MCV 88.0 fl (81-100) 03/15/18 04:35 MCH 28.5 pg (27.0-31.0) 03/15/18 04:35 MCHC Differential 32.4 pg (28.0-36.0) 03/15/18 04:35 RDW 19.1 % (11.5-20.0) 03/15/18 04:35 Plt Count 218 Th/cmm (150-400) 03/15/18 04:35 MPV 7.3 fl 03/15/18 04:35 Add Manual Diff YES 03/13/18 05:42 Neutrophils % 87.1 % (40.0-80.0) H 03/15/18 04:35 Band Neutrophils % 2 % (0-10) 03/15/18 04:35 Lymphocytes % 5.0 % (20.0-50.0) L 03/15/18 04:35 Monocytes % 4.4 % (2.0-10.0) 03/15/18 04:35 Eosinophils % 3.3 % (0.0-5.0) 03/15/18 04:35 Basophils % 0.2 % (0.0-2.0) 03/15/18 04:35 Neutrophils (Manual) 82 % (40-80) H 03/15/18 04:35 Lymphocytes 8 % (20-50) L 03/15/18 04:35 Monocytes 4 % (2-10) 03/15/18 04:35 Eosinophils 4 % (0-5) 03/15/18 04:35 Basophils 0 % (0-3) 03/14/18 04:15 Platelet Estimate ADEQUATE (NORMAL) 03/13/18 05:42 PT 11.9 SECONDS (9.5-11.5) H 03/12/18 12:45 INR 1.15 (0.5-1.4) 03/12/18 12:45 PTT (Actin FS) 28.2 SECONDS (26.0-38.0) 03/14/18 04:15 Sodium 139 mEq/L (136-145) 03/15/18 04:35 Potassium 4.9 mEq/L (3.5-5.1) 03/15/18 04:35 Chloride 107 mEq/L (98-107) 03/15/18 04:35 Carbon Dioxide 22.9 mEq/L (21.0-31.0) 03/15/18 04:35 Anion Gap 14.0 (7.0-16.0) 03/15/18 04:35 BUN 37 mg/dL (7-25) H 03/15/18 04:35 Creatinine 1.7 mg/dL (0.6-1.2) H 03/15/18 04:35 Est GFR ( Amer) 45.7 ml/min (>90) 03/15/18 04:35 Est GFR (Non-Af Amer) 37.8 ml/min 03/15/18 04:35 BUN/Creatinine Ratio 21.8 03/15/18 04:35 Glucose 91 mg/dL (70-105) 03/15/18 04:35 POC Glucose 163 MG/DL (70 - 105) H 03/15/18 20:21 Calcium 8.7 mg/dL (8.6-10.3) 03/15/18 04:35 Total Bilirubin 1.4 mg/dL (0.3-1.0) H 03/15/18 04:35 AST 9 U/L (13-39) L 03/15/18 04:35 ALT 8 U/L (7-52) 03/15/18 04:35 Alkaline Phosphatase 140 U/L (34-104) H 03/15/18 04:35 Troponin I 0.03 ng/mL (0.01-0.05) 03/12/18 12:45 B-Natriuretic Peptide 3920.0 pg/mL (5.0-100.0) H 03/15/18 04:35 Total Protein 5.7 gm/dL (6.0-8.3) L 03/15/18 04:35 Albumin 2.7 gm/dL (3.7-5.3) L 03/15/18 04:35 Globulin 3.0 gm/dL 03/15/18 04:35 Albumin/Globulin Ratio 0.9 (1.0-1.8) L 03/15/18 04:35 TSH 8.16 uIU/ml (0.34-5.60) H 03/12/18 12:45 Serum , Qual NEGATIVE (NEGATIVE) 03/12/18 12:45 Urine Source CLEAN C 03/12/18 15:17 Urine Color YELLOW 03/12/18 15:17 Urine Clarity HAZY (CLEAR) 03/12/18 15:17 Urine pH 5.0 (4.6 - 8.0) 03/12/18 15:17 Ur Specific [place] >= 1.030 (1.005-1.030) 03/12/18 15:17 Urine Protein 100 mg/dL (NEGATIVE) H 03/12/18 15:17 Urine Glucose (UA) NEGATIVE mg/dL (NEGATIVE) 03/12/18 15:17 Urine Ketones NEGATIVE mg/dL (NEGATIVE) 03/12/18 15:17 Urine Blood MODERATE (NEGATIVE) H 03/12/18 15:17 Urine Nitrate POSITIVE (NEGATIVE) H 03/12/18 15:17 Urine Bilirubin NEGATIVE (NEGATIVE) 03/12/18 15:17 Urine Urobilinogen 0.2 E.U./dL (0.2 - 1.0) 03/12/18 15:17 Ur Leukocyte Esterase TRACE (NEGATIVE) H 03/12/18 15:17 Urine RBC 2-5 /hpf (0-5) 03/12/18 15:17 Urine WBC 6-10 /hpf (0-5) H 03/12/18 15:17 Ur Epithelial Cells FEW /lpf (FEW) 03/12/18 15:17 Urine Bacteria 4+ /hpf (NONE SEEN) H 03/12/18 15:17 Fluid Source PARACENTHESIS 03/14/18 10:40 Fluid Color YELLOW 03/14/18 10:40 Fluid Appearance CLEAR 03/14/18 10:40 Fluid WBC 143 /cumm 03/14/18 10:40 Fluid RBC 117 /cumm 03/14/18 10:40 Fluid Neutrophils 7 % 03/14/18 10:40 Fluid Lymphocytes 81 % 03/14/18 10:40 Fluid Monocytes 12 % 03/14/18 10:40 Fluid Total Protein 3.4 g/dL 03/14/18 10:40 Urine Opiates Screen NEGATIVE (NEGATIVE) 03/12/18 15:30 Urine Methadone Screen NEGATIVE (NEGATIVE) 03/12/18 15:30 Ur Barbiturates Screen NEGATIVE (NEGATIVE) 03/12/18 15:30 Ur Tricyclics Screen NEGATIVE (NEGATIVE) 03/12/18 15:30 Ur Phencyclidine Scrn NEGATIVE (NEGATIVE) 03/12/18 15:30 Amphetamines Screen NEGATIVE (NEGATIVE) 03/12/18 15:30 U Methamphetamines Scrn NEGATIVE (NEGATIVE) 03/12/18 15:30 U Benzodiazepines Scrn POSITIVE (NEGATIVE) H 03/12/18 15:30 U Cocaine Metab Screen NEGATIVE (NEGATIVE) 03/12/18 15:30 U Cannabinoids Screen NEGATIVE (NEGATIVE) 03/12/18 15:30 HIV 1&2 Antibody Screen NEGATIVE (NEG) 03/15/18 06:35 - Physical Exam Vitals and I&O: Vital Signs Temp 97.2 F 03/15/18 20:00 Pulse 92 03/15/18 20:00 Resp 17 03/15/18 20:00 BP 118/87 03/15/18 20:00 Pulse Ox 98 03/15/18 20:00 Intake & Output 03/15/18 03/15/18 03/16/18 06:59 18:59 06:59 Intake Total 920 600 Output Total 0 Balance 920 600 Weight (lbs) 47.344 kg 46.72 kg Intake: Intake, IV Amount 200 100 Meropenem 500 mg In 200 100 Sodium Chloride 0.9% 100 ml @ 100 mls/hr IV Q8H [facility] Rx#:[id number] Oral 720 500 Output: Stool 0 Other: # Voids 3 4 # Bowel Movements 1 Stool Characteristics Formed Weight Source Bedscale Bedscale Active Medications: Current Medications Acetaminophen (Tylenol) 650 mg PO Q4H PRN PRN Reason: Pain or Fever >101 Stop: 05/12/18 02:53 Acetaminophen/Hydrocodone Bitart ([place] 5mg/325mg) 1 tab PO Q4H PRN PRN Reason: Pain (Severe) Stop: 05/12/18 02:53 Last Admin: 03/13/18 20:07 Dose: 1 tab Aspirin (Aspirin Chewable) 81 mg PO DAILY [facility] Stop: 05/12/18 08:59 Last Admin: 03/15/18 13:13 Dose: 81 mg Carvedilol (Coreg) 3.125 mg PO BIDWM [facility] Stop: 05/12/18 07:59 Last Admin: 03/15/18 17:52 Dose: Not Given Docusate Sodium (Colace) 100 mg PO DAILY [facility] Stop: 05/12/18 08:59 Last Admin: 03/15/18 13:13 Dose: 100 mg Fluoxetine HCl (Prozac) 40 mg PO DAILY [facility] Stop: 05/12/18 08:59 Last Admin: 03/15/18 13:13 Dose: 40 mg Furosemide (Lasix) 40 mg IVP BID [facility] Stop: 05/14/18 16:59 Last Admin: 03/15/18 17:51 Dose: 40 mg Glipizide (Glucotrol) 5 mg PO BID [facility] Stop: 05/12/18 08:59 Last Admin: 03/15/18 17:51 Dose: 5 mg Meropenem 500 mg/ Sodium (Chloride) 100 mls @ 100 mls/hr IV Q8H [facility] Stop: 05/13/18 13:59 Last Admin: 03/15/18 21:17 Dose: 100 mls/hr Insulin Aspart (Novolog Insulin Sliding Scale) 0 units SUBQ ACHS [facility]; Protocol Stop: 05/12/18 07:29 Last Admin: 03/15/18 20:22 Dose: Not Given Lactobacillus Rhamnosus (Culturelle 15b) 1 each PO DAILY [facility] Stop: 05/13/18 13:59 Last Admin: 03/15/18 13:13 Dose: 1 each Lisinopril (Zestril) 5 mg PO DAILY [facility] Stop: 05/12/18 08:59 Last Admin: 03/15/18 13:13 Dose: 5 mg Lorazepam (Ativan) 0.5 mg PO DAILY [facility]; Protocol Stop: 05/12/18 08:59 Last Admin: 03/15/18 13:13 Dose: 0.5 mg Magnesium Hydroxide (Milk Of Magnesia) 30 ml PO HS PRN PRN Reason: Constipation Stop: 05/12/18 02:55 Miscellaneous (Probiotic Screen) 1 ea MC PRN PRN PRN Reason: PROTOCOL Stop: 05/13/18 11:35 Miscellaneous (Clinical Monitoring) 1 ea MC DAILY PRN PRN Reason: RENAL- METFORMIN Stop: 05/13/18 14:45 Mupirocin (Bactroban Oint) 1 appl NS BID [facility] Stop: 03/19/18 09:01 Last Admin: 03/15/18 17:54 Dose: 1 appl Sodium Phosphate (Fleet Enema) 1 ml RC Q48H PRN PRN Reason: Constipation Stop: 05/12/18 02:53 General: no acute distress, well developed, well nourished HEENT: atraumatic, normocephalic, PERRLA Neck: supple, no thyromegaly, no lymphadenopathy Cardiovascular: S1S2, regular Lungs: clear to auscultation bilaterally, clear to percussion Abdomen: soft, no tender, no distended, no rebound Extremities: no cyanosis, no clubbing Neurological: awake, alert, oriented, CN 2-12 intact Skin: intact Infectious Disease Assmt/Plan - Assessment Assessment: 1. Cholecystitis. Cholelithiasis. HIDa scan positive. 2. Diabetes mellitus type 2. 3. Cardiomyopathy with a low ejection fraction of 10-15%. AICD placement. 4. History of cardiopulmonary arrest. 5. Diabetes mellitus type 2. 6. Hypothyroidism. 7. Acute renal failure, acute kidney injury. - Plan Plan: Continue the same treatment. patient will need surgery at higher level. As per Dr Dominguez. Nutritional Asmnt/Malnutr-PDOC - Dietary Evaluation Malnutrition Findings (Please click <Entered> for more info): Nutritional Asmnt/Malnutrition Start: 03/15/18 14: 02 Text: Status: Complete Freq: Protocol: Document 03/15/18 14:02 LCHENG (Rec: 03/15/18 14:17 [email or web address] [email or web address]) Nutritional Asmnt/Malnutrition Patient General Information Nutritional Screening Moderate Risk Diagnosis cholelithiasis Pertinent Medical Hx/Surgical Hx HTN, DM, CAD, dementia, pacemake Subjective Information Pt seen lying in bed at time of visit, awake and alert. Pt stated she has good appetite, no question or concern about current diet/meals. Per [employer], pt consumed 50% of lunch today . Offered pt nutrition supplements, pt declined. wt pt in bed, 143lb noted. Pt is appeared no muscle/fat wasting . Per MD note 03/15, s/p paracentesis on 03/14, 4 L fluid out. Current Diet Order/ Nutrition Support CCHO, 2g Na Pertinent Medications colace, lasix, glucotrol, novolog, culturelle Pertinent Labs 03/15 K 4.9, BUN 37, Cr, 1.7, glucose 91, POC 73-115, alb 2. 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 Problem Problem altered nutrition related labs Etiology renal dysfunction Signs/Symptoms: BUN 37, Cr 1.7 - Improving Intervention/Recommendation Comments 1. Continue with [facility] 2g Na diet as ordered. Encourage oral intake. 2. Monitor PO intake, wt, labs and skin integrity 3. F/U as high risk in 2-3 days, 03/17-03/18 Expected Outcomes/Goals Expected Outcomes/Goals 1. PO intake to meet at least 75% of nutritional needs. 2. Wt stability, skin to remain intact, labs to approach WNL.
[2018-03-16] MEDS: Meropenem 500 MG in Sodium Chloride 0.9% 100 ML IV SCH ×3 (05:26→21:23)
[2018-03-16 05:37] LABS: ANION GAP 12.9 (7.0-16.0); CALCIUM SERUM 8.8 mg/dL (8.6-10.3); CARBON DIOXIDE 25.2 mEq/L (21.0-31.0); CREATININE - SERUM 1.6 mg/dL (0.6-1.2); GFR NON AFRICAN-AMERICAN 40.5 ml/min; POTASSIUM SERUM 5.1 mEq/L (3.5-5.1)
[2018-03-16 06:40] LABS: % BASOPHILS 0.7 % (0.0-2.0); % EOSINOPHILS 4.1 % (0.0-5.0); % MONOCYTES 5.9 % (2.0-10.0); % NEUTROPHILS 82.1 % (40.0-80.0); BASOPHILE ABSOLUTE 0.1 Th/cumm (0-0.2); EOSINOPHILE ABSOLUTE 0.3 Th/cmm (0.1-0.4); HEMOGLOBIN 14.7 gm/dL (12-16); LYMPHOCYTE ABSOLUTE 0.6 Th/cmm (1.5-3.0); MEAN CORPUSCULAR HEMOGLOBIN 28.1 pg (27.0-31.0); MEAN CORPUSCULAR HGB CONC 31.9 pg (28.0-36.0); MEAN PLATELET VOLUME 7.9 fl; MONOCYTE ABSOLUTE 0.5 Th/cmm (0.3-1.0); NEUTROPHILE ABSOLUTE 6.9 Th/cmm (1.8-8.0); PLATELET COUNT 219 Th/cmm (150-400); RED BLOOD COUNT 5.23 Mil/cmm (3.80-5.10); RED CELL DISTRIBUTION WIDTH 19.1 % (11.5-20.0); WHITE BLOOD COUNT 8.4 Th/cmm (4.8-10.8)
[2018-03-16] MEDS: INSULIN ASPART SLIDING SCALE 100 UNITS/ML UNIT SUBQ SCH ×4 (06:48→20:40)
[2018-03-16 06:50] LABS: ALB/GLOB RATIO 0.9 (1.0-1.8); ALBUMIN 2.7 gm/dL (3.7-5.3); ANION GAP 15.6 (7.0-16.0); BILIRUBIN,TOTAL 1.5 mg/dL (0.3-1.0); CALCIUM SERUM 8.9 mg/dL (8.6-10.3); CARBON DIOXIDE 23.5 mEq/L (21.0-31.0); CREATININE - SERUM 1.6 mg/dL (0.6-1.2); GFR NON AFRICAN-AMERICAN 40.5 ml/min; POTASSIUM SERUM 5.1 mEq/L (3.5-5.1); TOTAL PROTEIN,SERUM 5.7 gm/dL (6.0-8.3)
[2018-03-16 07:04] LABS: % LYMPHOCYTES 7.2 % (20.0-50.0)
--- NOTE | 2018-03-16 07:30 | Diagnostic Imaging Report ---
Portable chest x-ray HISTORY: Shortness of breath. The heart is enlarged. Cardiac electrode wire projects over the right ventricle. No focal pulmonary processes. IMPRESSION: 1. No acute pulmonary processes 2. Cardiomegaly
[2018-03-16] MEDS: Aspirin 81mg Chewable Tab PO SCH (09:12)
[2018-03-16] MEDS: Lactobacillus Rhamnosus GG 15 Billion CFU CAP.SPRINK PO SCH (09:13)
--- NOTE | 2018-03-16 09:21 | GI Progress Note ---
Subjective - Review of Systems Service Date: 03/16/18 Events since last encounter: No events Subjective: Better. No abd pain Objective - Results Result Diagrams: 03/16/18 04:25 03/16/18 04:25 Recent Labs: Laboratory Last Values WBC 8.4 Th/cmm (4.8-10.8) 03/16/18 04:25 RBC 5.23 Mil/cmm (3.80-5.10) H 03/16/18 04:25 Hgb 14.7 gm/dL (12-16) 03/16/18 04:25 Hct 46.0 % (41.0-60) 03/16/18 04:25 MCV 88.0 fl (81-100) 03/16/18 04:25 MCH 28.1 pg (27.0-31.0) 03/16/18 04:25 MCHC Differential 31.9 pg (28.0-36.0) 03/16/18 04:25 RDW 19.1 % (11.5-20.0) 03/16/18 04:25 Plt Count 219 Th/cmm (150-400) 03/16/18 04:25 MPV 7.9 fl 03/16/18 04:25 Add Manual Diff YES 03/13/18 05:42 Neutrophils % 82.1 % (40.0-80.0) H 03/16/18 04:25 Band Neutrophils % 2 % (0-10) 03/15/18 04:35 Lymphocytes % 7.2 % (20.0-50.0) L 03/16/18 04:25 Monocytes % 5.9 % (2.0-10.0) 03/16/18 04:25 Eosinophils % 4.1 % (0.0-5.0) 03/16/18 04:25 Basophils % 0.7 % (0.0-2.0) 03/16/18 04:25 Neutrophils (Manual) Not Reportable 03/16/18 04:25 Lymphocytes 8 % (20-50) L 03/15/18 04:35 Monocytes 4 % (2-10) 03/15/18 04:35 Eosinophils 4 % (0-5) 03/15/18 04:35 Basophils 0 % (0-3) 03/14/18 04:15 Platelet Estimate ADEQUATE (NORMAL) 03/13/18 05:42 PT 11.9 SECONDS (9.5-11.5) H 03/12/18 12:45 INR 1.15 (0.5-1.4) 03/12/18 12:45 PTT (Actin FS) 28.2 SECONDS (26.0-38.0) 03/14/18 04:15 Sodium 136 mEq/L (136-145) 03/16/18 04:25 Potassium 5.1 mEq/L (3.5-5.1) 03/16/18 04:25 Chloride 102 mEq/L (98-107) 03/16/18 04:25 Carbon Dioxide 23.5 mEq/L (21.0-31.0) 03/16/18 04:25 Anion Gap 15.6 (7.0-16.0) 03/16/18 04:25 BUN 38 mg/dL (7-25) H 03/16/18 04:25 Creatinine 1.6 mg/dL (0.6-1.2) H 03/16/18 04:25 Est GFR ( Amer) 49.0 ml/min (>90) 03/16/18 04:25 Est GFR (Non-Af Amer) 40.5 ml/min 03/16/18 04:25 BUN/Creatinine Ratio 23.8 03/16/18 04:25 Glucose 108 mg/dL (70-105) H 03/16/18 04:25 POC Glucose 113 MG/DL (70 - 105) H 03/16/18 06:47 Calcium 8.9 mg/dL (8.6-10.3) 03/16/18 04:25 Total Bilirubin 1.5 mg/dL (0.3-1.0) H 03/16/18 04:25 AST 9 U/L (13-39) L 03/16/18 04:25 ALT 9 U/L (7-52) 03/16/18 04:25 Alkaline Phosphatase 141 U/L (34-104) H 03/16/18 04:25 Troponin I 0.03 ng/mL (0.01-0.05) 03/12/18 12:45 B-Natriuretic Peptide 3180.0 pg/mL (5.0-100.0) H 03/16/18 04:25 Total Protein 5.7 gm/dL (6.0-8.3) L 03/16/18 04:25 Albumin 2.7 gm/dL (3.7-5.3) L 03/16/18 04:25 Globulin 3.0 gm/dL 03/16/18 04:25 Albumin/Globulin Ratio 0.9 (1.0-1.8) L 03/16/18 04:25 TSH 8.16 uIU/ml (0.34-5.60) H 03/12/18 12:45 Serum , Qual NEGATIVE (NEGATIVE) 03/12/18 12:45 Urine Source CLEAN C 03/12/18 15:17 Urine Color YELLOW 03/12/18 15:17 Urine Clarity HAZY (CLEAR) 03/12/18 15:17 Urine pH 5.0 (4.6 - 8.0) 03/12/18 15:17 Ur Specific [place] >= 1.030 (1.005-1.030) 03/12/18 15:17 Urine Protein 100 mg/dL (NEGATIVE) H 03/12/18 15:17 Urine Glucose (UA) NEGATIVE mg/dL (NEGATIVE) 03/12/18 15:17 Urine Ketones NEGATIVE mg/dL (NEGATIVE) 03/12/18 15:17 Urine Blood MODERATE (NEGATIVE) H 03/12/18 15:17 Urine Nitrate POSITIVE (NEGATIVE) H 03/12/18 15:17 Urine Bilirubin NEGATIVE (NEGATIVE) 03/12/18 15:17 Urine Urobilinogen 0.2 E.U./dL (0.2 - 1.0) 03/12/18 15:17 Ur Leukocyte Esterase TRACE (NEGATIVE) H 03/12/18 15:17 Urine RBC 2-5 /hpf (0-5) 03/12/18 15:17 Urine WBC 6-10 /hpf (0-5) H 03/12/18 15:17 Ur Epithelial Cells FEW /lpf (FEW) 03/12/18 15:17 Urine Bacteria 4+ /hpf (NONE SEEN) H 03/12/18 15:17 Fluid Source PARACENTHESIS 03/14/18 10:40 Fluid Color YELLOW 03/14/18 10:40 Fluid Appearance CLEAR 03/14/18 10:40 Fluid WBC 143 /cumm 03/14/18 10:40 Fluid RBC 117 /cumm 03/14/18 10:40 Fluid Neutrophils 7 % 03/14/18 10:40 Fluid Lymphocytes 81 % 03/14/18 10:40 Fluid Monocytes 12 % 03/14/18 10:40 Fluid Total Protein 3.4 g/dL 03/14/18 10:40 Urine Opiates Screen NEGATIVE (NEGATIVE) 03/12/18 15:30 Urine Methadone Screen NEGATIVE (NEGATIVE) 03/12/18 15:30 Ur Barbiturates Screen NEGATIVE (NEGATIVE) 03/12/18 15:30 Ur Tricyclics Screen NEGATIVE (NEGATIVE) 03/12/18 15:30 Ur Phencyclidine Scrn NEGATIVE (NEGATIVE) 03/12/18 15:30 Amphetamines Screen NEGATIVE (NEGATIVE) 03/12/18 15:30 U Methamphetamines Scrn NEGATIVE (NEGATIVE) 03/12/18 15:30 U Benzodiazepines Scrn POSITIVE (NEGATIVE) H 03/12/18 15:30 U Cocaine Metab Screen NEGATIVE (NEGATIVE) 03/12/18 15:30 U Cannabinoids Screen NEGATIVE (NEGATIVE) 03/12/18 15:30 HIV 1&2 Antibody Screen NEGATIVE (NEG) 03/15/18 06:35 - Physical Exam Vitals and I&O: Vital Signs Temp 96.5 F 03/16/18 07:39 Pulse 96 03/16/18 09:14 Resp 18 03/16/18 07:39 BP 118/93 03/16/18 09:14 Pulse Ox 100 03/16/18 07:39 Intake & Output 03/15/18 03/16/18 03/16/18 18:59 06:59 18:59 Intake Total 600 300 Output Total 0 Balance 600 300 Weight (lbs) 46.72 kg 65.317 kg Intake: Intake, IV Amount 100 100 Meropenem 500 mg In 100 100 Sodium Chloride 0.9% 100 ml @ 100 mls/hr IV Q8H [facility] Rx#:[id number] Oral 500 200 Output: Stool 0 Other: # Voids 4 2 # Bowel Movements 0 Weight Source Bedscale Bedscale Active Medications: Current Medications Acetaminophen (Tylenol) 650 mg PO Q4H PRN PRN Reason: Pain or Fever >101 Stop: 05/12/18 02:53 Acetaminophen/Hydrocodone Bitart ([place] 5mg/325mg) 1 tab PO Q4H PRN PRN Reason: Pain (Severe) Stop: 05/12/18 02:53 Last Admin: 03/13/18 20:07 Dose: 1 tab Aspirin (Aspirin Chewable) 81 mg PO DAILY [facility] Stop: 05/12/18 08:59 Last Admin: 03/16/18 09:12 Dose: 81 mg Carvedilol (Coreg) 3.125 mg PO BIDWM [facility] Stop: 05/12/18 07:59 Last Admin: 03/16/18 09:14 Dose: 3.125 mg Docusate Sodium (Colace) 100 mg PO DAILY [facility] Stop: 05/12/18 08:59 Last Admin: 03/16/18 09:12 Dose: 100 mg Fluoxetine HCl (Prozac) 40 mg PO DAILY [facility] Stop: 05/12/18 08:59 Last Admin: 03/16/18 09:12 Dose: 40 mg Furosemide (Lasix) 40 mg IVP BID [facility] Stop: 05/14/18 16:59 Last Admin: 03/16/18 09:13 Dose: 40 mg Glipizide (Glucotrol) 5 mg PO BID [facility] Stop: 05/12/18 08:59 Last Admin: 03/16/18 09:12 Dose: 5 mg Meropenem 500 mg/ Sodium (Chloride) 100 mls @ 100 mls/hr IV Q8H [facility] Stop: 05/13/18 13:59 Last Admin: 03/16/18 05:26 Dose: 100 mls/hr Insulin Aspart (Novolog Insulin Sliding Scale) 0 units SUBQ ACHS [facility]; Protocol Stop: 05/12/18 07:29 Last Admin: 03/16/18 06:48 Dose: Not Given Lactobacillus Rhamnosus (Culturelle 15b) 1 each PO DAILY [facility] Stop: 05/13/18 13:59 Last Admin: 03/16/18 09:13 Dose: 1 each Lisinopril (Zestril) 5 mg PO DAILY [facility] Stop: 05/12/18 08:59 Last Admin: 03/16/18 09:12 Dose: 5 mg Lorazepam (Ativan) 0.5 mg PO DAILY [facility]; Protocol Stop: 05/12/18 08:59 Last Admin: 03/16/18 09:13 Dose: 0.5 mg Magnesium Hydroxide (Milk Of Magnesia) 30 ml PO HS PRN PRN Reason: Constipation Stop: 05/12/18 02:55 Miscellaneous (Probiotic Screen) 1 ea MC PRN PRN PRN Reason: PROTOCOL Stop: 05/13/18 11:35 Miscellaneous (Clinical Monitoring) 1 ea MC DAILY PRN PRN Reason: RENAL- METFORMIN Stop: 05/13/18 14:45 Mupirocin (Bactroban Oint) 1 appl NS BID [facility] Stop: 03/19/18 09:01 Last Admin: 03/16/18 09:15 Dose: 1 appl Sodium Phosphate (Fleet Enema) 1 ml RC Q48H PRN PRN Reason: Constipation Stop: 05/12/18 02:53 General: Alert, No acute distress HEENT: PERRLA, Mucous membr. moist/pink Neck: Supple, +2 carotid pulse wo bruit Cardiovascular: Regular rate, Normal S1, Normal S2 Lungs: Clear to auscultation, Normal air movement Abdomen: Bowel sounds, Soft, Other (Not tender), no Tender, no Mass Extremities: no Edema Neurological: Sensation intact Skin: no Rash Psych/Mental Status: Mood NL Assessment/Plan - Assessment Assessment: 1. Ascites 2. Abnormal LFTs 3. Gall stones - Plan Plan: 1. Ascites S/P Paracentesis. Most likely cardiac. No SBP 2. Abnormal LFTs Could be passive liver congestion and possibly cardiac cirrhosis . Improving 3. Gall stones HIDA is positive Unlikely to be causing the abnormal LFTs Await surgical inputs
--- NOTE | 2018-03-16 14:03 | General Progress Note ---
Subjective - Review of Systems Service Date: 03/16/18 Subjective: awake, verbal, catches breath while talking Objective - Results Result Diagrams: 03/16/18 04:25 03/16/18 04:25 Recent Labs: Laboratory Last Values WBC 8.4 Th/cmm (4.8-10.8) 03/16/18 04:25 RBC 5.23 Mil/cmm (3.80-5.10) H 03/16/18 04:25 Hgb 14.7 gm/dL (12-16) 03/16/18 04:25 Hct 46.0 % (41.0-60) 03/16/18 04:25 MCV 88.0 fl (81-100) 03/16/18 04:25 MCH 28.1 pg (27.0-31.0) 03/16/18 04:25 MCHC Differential 31.9 pg (28.0-36.0) 03/16/18 04:25 RDW 19.1 % (11.5-20.0) 03/16/18 04:25 Plt Count 219 Th/cmm (150-400) 03/16/18 04:25 MPV 7.9 fl 03/16/18 04:25 Add Manual Diff YES 03/13/18 05:42 Neutrophils % 82.1 % (40.0-80.0) H 03/16/18 04:25 Band Neutrophils % 2 % (0-10) 03/15/18 04:35 Lymphocytes % 7.2 % (20.0-50.0) L 03/16/18 04:25 Monocytes % 5.9 % (2.0-10.0) 03/16/18 04:25 Eosinophils % 4.1 % (0.0-5.0) 03/16/18 04:25 Basophils % 0.7 % (0.0-2.0) 03/16/18 04:25 Neutrophils (Manual) Not Reportable 03/16/18 04:25 Lymphocytes 8 % (20-50) L 03/15/18 04:35 Monocytes 4 % (2-10) 03/15/18 04:35 Eosinophils 4 % (0-5) 03/15/18 04:35 Basophils 0 % (0-3) 03/14/18 04:15 Platelet Estimate ADEQUATE (NORMAL) 03/13/18 05:42 PT 11.9 SECONDS (9.5-11.5) H 03/12/18 12:45 INR 1.15 (0.5-1.4) 03/12/18 12:45 PTT (Actin FS) 28.2 SECONDS (26.0-38.0) 03/14/18 04:15 Sodium 136 mEq/L (136-145) 03/16/18 04:25 Potassium 5.1 mEq/L (3.5-5.1) 03/16/18 04:25 Chloride 102 mEq/L (98-107) 03/16/18 04:25 Carbon Dioxide 23.5 mEq/L (21.0-31.0) 03/16/18 04:25 Anion Gap 15.6 (7.0-16.0) 03/16/18 04:25 BUN 38 mg/dL (7-25) H 03/16/18 04:25 Creatinine 1.6 mg/dL (0.6-1.2) H 03/16/18 04:25 Est GFR ( Amer) 49.0 ml/min (>90) 03/16/18 04:25 Est GFR (Non-Af Amer) 40.5 ml/min 03/16/18 04:25 BUN/Creatinine Ratio 23.8 03/16/18 04:25 Glucose 108 mg/dL (70-105) H 03/16/18 04:25 POC Glucose 188 MG/DL (70 - 105) H 03/16/18 11:43 Calcium 8.9 mg/dL (8.6-10.3) 03/16/18 04:25 Total Bilirubin 1.5 mg/dL (0.3-1.0) H 03/16/18 04:25 AST 9 U/L (13-39) L 03/16/18 04:25 ALT 9 U/L (7-52) 03/16/18 04:25 Alkaline Phosphatase 141 U/L (34-104) H 03/16/18 04:25 Troponin I 0.03 ng/mL (0.01-0.05) 03/12/18 12:45 B-Natriuretic Peptide 3180.0 pg/mL (5.0-100.0) H 03/16/18 04:25 Total Protein 5.7 gm/dL (6.0-8.3) L 03/16/18 04:25 Albumin 2.7 gm/dL (3.7-5.3) L 03/16/18 04:25 Globulin 3.0 gm/dL 03/16/18 04:25 Albumin/Globulin Ratio 0.9 (1.0-1.8) L 03/16/18 04:25 TSH 8.16 uIU/ml (0.34-5.60) H 03/12/18 12:45 Serum , Qual NEGATIVE (NEGATIVE) 03/12/18 12:45 Urine Source CLEAN C 03/12/18 15:17 Urine Color YELLOW 03/12/18 15:17 Urine Clarity HAZY (CLEAR) 03/12/18 15:17 Urine pH 5.0 (4.6 - 8.0) 03/12/18 15:17 Ur Specific [place] >= 1.030 (1.005-1.030) 03/12/18 15:17 Urine Protein 100 mg/dL (NEGATIVE) H 03/12/18 15:17 Urine Glucose (UA) NEGATIVE mg/dL (NEGATIVE) 03/12/18 15:17 Urine Ketones NEGATIVE mg/dL (NEGATIVE) 03/12/18 15:17 Urine Blood MODERATE (NEGATIVE) H 03/12/18 15:17 Urine Nitrate POSITIVE (NEGATIVE) H 03/12/18 15:17 Urine Bilirubin NEGATIVE (NEGATIVE) 03/12/18 15:17 Urine Urobilinogen 0.2 E.U./dL (0.2 - 1.0) 03/12/18 15:17 Ur Leukocyte Esterase TRACE (NEGATIVE) H 03/12/18 15:17 Urine RBC 2-5 /hpf (0-5) 03/12/18 15:17 Urine WBC 6-10 /hpf (0-5) H 03/12/18 15:17 Ur Epithelial Cells FEW /lpf (FEW) 03/12/18 15:17 Urine Bacteria 4+ /hpf (NONE SEEN) H 03/12/18 15:17 Fluid Source PARACENTHESIS 03/14/18 10:40 Fluid Color YELLOW 03/14/18 10:40 Fluid Appearance CLEAR 03/14/18 10:40 Fluid WBC 143 /cumm 03/14/18 10:40 Fluid RBC 117 /cumm 03/14/18 10:40 Fluid Neutrophils 7 % 03/14/18 10:40 Fluid Lymphocytes 81 % 03/14/18 10:40 Fluid Monocytes 12 % 03/14/18 10:40 Fluid Total Protein 3.4 g/dL 03/14/18 10:40 Urine Opiates Screen NEGATIVE (NEGATIVE) 03/12/18 15:30 Urine Methadone Screen NEGATIVE (NEGATIVE) 03/12/18 15:30 Ur Barbiturates Screen NEGATIVE (NEGATIVE) 03/12/18 15:30 Ur Tricyclics Screen NEGATIVE (NEGATIVE) 03/12/18 15:30 Ur Phencyclidine Scrn NEGATIVE (NEGATIVE) 03/12/18 15:30 Amphetamines Screen NEGATIVE (NEGATIVE) 03/12/18 15:30 U Methamphetamines Scrn NEGATIVE (NEGATIVE) 03/12/18 15:30 U Benzodiazepines Scrn POSITIVE (NEGATIVE) H 03/12/18 15:30 U Cocaine Metab Screen NEGATIVE (NEGATIVE) 03/12/18 15:30 U Cannabinoids Screen NEGATIVE (NEGATIVE) 03/12/18 15:30 HIV 1&2 Antibody Screen NEGATIVE (NEG) 03/15/18 06:35 - Physical Exam Vitals and I&O: Vital Signs Temp 96.3 F 03/16/18 11:52 Pulse 66 03/16/18 11:52 Resp 18 03/16/18 11:52 BP 90/53 03/16/18 11:52 Pulse Ox 96 03/16/18 11:52 Intake & Output 03/15/18 03/16/18 03/16/18 18:59 06:59 18:59 Intake Total 600 300 Output Total 0 Balance 600 300 Weight (lbs) 46.72 kg 65.317 kg Intake: Intake, IV Amount 100 100 Meropenem 500 mg In 100 100 Sodium Chloride 0.9% 100 ml @ 100 mls/hr IV Q8H [facility] Rx#:[id number] Oral 500 200 Output: Stool 0 Other: # Voids 4 2 # Bowel Movements 0 Weight Source Bedscale Bedscale Active Medications: Current Medications Acetaminophen (Tylenol) 650 mg PO Q4H PRN PRN Reason: Pain or Fever >101 Stop: 05/12/18 02:53 Acetaminophen/Hydrocodone Bitart ([place] 5mg/325mg) 1 tab PO Q4H PRN PRN Reason: Pain (Severe) Stop: 05/12/18 02:53 Last Admin: 03/13/18 20:07 Dose: 1 tab Aspirin (Aspirin Chewable) 81 mg PO DAILY [facility] Stop: 05/12/18 08:59 Last Admin: 03/16/18 09:12 Dose: 81 mg Carvedilol (Coreg) 3.125 mg PO BIDWM [facility] Stop: 05/12/18 07:59 Last Admin: 03/16/18 09:14 Dose: 3.125 mg Docusate Sodium (Colace) 100 mg PO DAILY [facility] Stop: 05/12/18 08:59 Last Admin: 03/16/18 09:12 Dose: 100 mg Fluoxetine HCl (Prozac) 40 mg PO DAILY [facility] Stop: 05/12/18 08:59 Last Admin: 03/16/18 09:12 Dose: 40 mg Furosemide (Lasix) 40 mg IVP BID [facility] Stop: 05/14/18 16:59 Last Admin: 03/16/18 09:13 Dose: 40 mg Glipizide (Glucotrol) 5 mg PO BID [facility] Stop: 05/12/18 08:59 Last Admin: 03/16/18 09:12 Dose: 5 mg Meropenem 500 mg/ Sodium (Chloride) 100 mls @ 100 mls/hr IV Q8H [facility] Stop: 05/13/18 13:59 Last Admin: 03/16/18 05:26 Dose: 100 mls/hr Insulin Aspart (Novolog Insulin Sliding Scale) 0 units SUBQ ACHS [facility]; Protocol Stop: 05/12/18 07:29 Last Admin: 03/16/18 11:49 Dose: 2 units Lactobacillus Rhamnosus (Culturelle 15b) 1 each PO DAILY [facility] Stop: 05/13/18 13:59 Last Admin: 03/16/18 09:13 Dose: 1 each Lisinopril (Zestril) 5 mg PO DAILY [facility] Stop: 05/12/18 08:59 Last Admin: 03/16/18 09:12 Dose: 5 mg Lorazepam (Ativan) 0.5 mg PO DAILY [facility]; Protocol Stop: 05/12/18 08:59 Last Admin: 03/16/18 09:13 Dose: 0.5 mg Magnesium Hydroxide (Milk Of Magnesia) 30 ml PO HS PRN PRN Reason: Constipation Stop: 05/12/18 02:55 Miscellaneous (Probiotic Screen) 1 ea MC PRN PRN PRN Reason: PROTOCOL Stop: 05/13/18 11:35 Miscellaneous (Clinical Monitoring) 1 ea MC DAILY PRN PRN Reason: RENAL- METFORMIN Stop: 05/13/18 14:45 Mupirocin (Bactroban Oint) 1 appl NS BID [facility] Stop: 03/19/18 09:01 Last Admin: 03/16/18 09:15 Dose: 1 appl Sodium Phosphate (Fleet Enema) 1 ml RC Q48H PRN PRN Reason: Constipation Stop: 05/12/18 02:53 General: Alert, No acute distress HEENT: PERRLA, Mucous membr. moist/pink Neck: Supple, +2 carotid pulse wo bruit Cardiovascular: Regular rate, Normal S1, Normal S2 Lungs: Clear to auscultation, Other (hyperventilating) Abdomen: Bowel sounds, Soft, Other (Not tender), no Tender, no Mass Extremities: no Edema Neurological: Sensation intact Skin: no Rash Psych/Mental Status: Mood NL Assessment/Plan - Assessment Assessment: CKD T2 DM EJF 10-20% CP Arrest, PEA S/P AICD Hypothyroid Compensated CHF Acute Cholecystitis 2/2 Cholelithiasis Liver Cirrhosis Ascites S/P Paracentesis - Plan Plan: Lab - Result Diagrams 03/15/18 04:35 03/15/18 04:35 Current Medications Acetaminophen (Tylenol) 650 mg PO Q4H PRN PRN Reason: Pain or Fever >101 Stop: 05/12/18 02:53 Acetaminophen/Hydrocodone Bitart ([place] 5mg/325mg) 1 tab PO Q4H PRN PRN Reason: Pain (Severe) Stop: 05/12/18 02:53 Last Admin: 03/13/18 20:07 Dose: 1 tab Aspirin (Aspirin Chewable) 81 mg PO DAILY [facility] Stop: 05/12/18 08:59 Last Admin: 03/14/18 09:55 Dose: 81 mg Carvedilol (Coreg) 3.125 mg PO BIDWM [facility] Stop: 05/12/18 07:59 Last Admin: 03/15/18 07:57 Dose: 3.125 mg Docusate Sodium (Colace) 100 mg PO DAILY [facility] Stop: 05/12/18 08:59 Last Admin: 03/14/18 09:55 Dose: 100 mg Fluoxetine HCl (Prozac) 40 mg PO DAILY [facility] Stop: 05/12/18 08:59 Last Admin: 03/14/18 09:54 Dose: 40 mg Furosemide (Lasix) 40 mg IVP BID [facility] Stop: 05/14/18 16:59 Glipizide (Glucotrol) 5 mg PO BID [facility] Stop: 05/12/18 08:59 Last Admin: 03/14/18 17:32 Dose: 5 mg Meropenem 500 mg/ Sodium (Chloride) 100 mls @ 100 mls/hr IV Q8H [facility] Stop: 05/13/18 13:59 Last Infusion: 03/15/18 06:14 Dose: Infused Insulin Aspart (Novolog Insulin Sliding Scale) 0 units SUBQ ACHS [facility]; Protocol Stop: 05/12/18 07:29 Last Admin: 03/15/18 07:30 Dose: Not Given Lactobacillus Rhamnosus (Culturelle 15b) 1 each PO DAILY [facility] Stop: 05/13/18 13:59 Last Admin: 03/14/18 17:32 Dose: 1 each Lisinopril (Zestril) 5 mg PO DAILY [facility] Stop: 05/12/18 08:59 Last Admin: 03/14/18 10:03 Dose: 5 mg Lorazepam (Ativan) 0.5 mg PO DAILY [facility]; Protocol Stop: 05/12/18 08:59 Last Admin: 03/14/18 09:54 Dose: 0.5 mg Magnesium Hydroxide (Milk Of Magnesia) 30 ml PO HS PRN PRN Reason: Constipation Stop: 05/12/18 02:55 Metformin HCl (Glucophage) 500 mg PO BIDWM [facility] Stop: 05/12/18 07:59 Last Admin: 03/15/18 07:57 Dose: 500 mg Miscellaneous (Probiotic Screen) 1 ea MC PRN PRN PRN Reason: PROTOCOL Stop: 05/13/18 11:35 Miscellaneous (Clinical Monitoring) 1 ea MC DAILY PRN PRN Reason: RENAL- METFORMIN Stop: 05/13/18 14:45 Mupirocin (Bactroban Oint) 1 appl NS BID [facility] Stop: 03/19/18 09:01 Last Admin: 03/14/18 17:34 Dose: 1 appl Sodium Phosphate (Fleet Enema) 1 ml RC Q48H PRN PRN Reason: Constipation Stop: 05/12/18 02:53 Lab - Result Diagrams 03/16/18 04:25 12/12/18 04:25 Kidney fnc stable W/ BUN/CR of 38/1.6 BNP elevated 2/2 to CKD continue diuretics CXR NAD DC Metformin due to kidney & liver failure Nutritional Asmnt/Malnutr-PDOC - Dietary Evaluation Malnutrition Findings (Please click <Entered> for more info): Nutritional Asmnt/Malnutrition Start: 03/15/18 14: 02 Text: Status: Complete Freq: Protocol: Document 03/15/18 14:02 MARICHUY (Rec: 03/15/18 14:17 LCHEN [email or web address]) Nutritional Asmnt/Malnutrition Patient General Information Nutritional Screening Moderate Risk Diagnosis cholelithiasis Pertinent Medical Hx/Surgical Hx HTN, DM, CAD, dementia, pacemake Subjective Information Pt seen lying in bed at time of visit, awake and alert. Pt stated she has good appetite, no question or concern about current diet/meals. Per [employer], pt consumed 50% of lunch today . Offered pt nutrition supplements, pt declined. wt pt in bed, 143lb noted. Pt is appeared no muscle/fat wasting . Per MD note 03/15, s/p paracentesis on 03/14, 4 L fluid out. Current Diet Order/ Nutrition Support CCHO, 2g Na Pertinent Medications colace, lasix, glucotrol, novolog, culturelle Pertinent Labs 03/15 K 4.9, BUN 37, Cr, 1.7, glucose 91, POC 73-115, alb 2. 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 Problem Problem altered nutrition related labs Etiology renal dysfunction Signs/Symptoms: BUN 37, Cr 1.7 - Improving Intervention/Recommendation Comments 1. Continue with CCHO 2g Na diet as ordered. Encourage oral intake. 2. Monitor PO intake, wt, labs and skin integrity 3. F/U as high risk in 2-3 days, 03/17-03/18 Expected Outcomes/Goals Expected Outcomes/Goals 1. PO intake to meet at least 75% of nutritional needs. 2. Wt stability, skin to remain intact, labs to approach WNL.
--- NOTE | 2018-03-18 11:47 | Discharge Summary ---
DATE OF DISCHARGE: 03/17/2018 CHIEF COMPLAINT: Distended abdomen. HISTORY OF PRESENT ILLNESS: The patient is a 27-year-old female with past medical history of diabetes mellitus type 2, history of cardiopulmonary arrest, cardiomegaly with low ejection fraction 10%-15%, status post PE, AICD placement at [facility], hypothyroidism, CHF, brought in from nursing facility for distended abdomen. On initial evaluation, temperature was 97.9 degrees Fahrenheit. WBC count was 9000. Urinalysis suggested mild pyuria and bacteriuria. CT scan of the abdomen and the pelvis showed large ascites and gallstones with distended gallbladder. The patient was admitted with diagnoses of cholecystitis and acute abdomen. Rocephin IV was started and continued on medication. The creatinine was also elevated 2.0, which was new. On the previous admission a few days ago her creatinine was 1.0. Surgical consultation, GI consultation and consultation were called. HIDA scan was performed and it came positive. Prior to doing HIDA scan, abdominal paracentesis was performed, which went uneventful. Dr. Dominguez recommended surgical intervention, cholecystectomy. I have discussed with him and he had deferred surgery as the patient was very high risk. After the discussion, we decided to send the patient to a higher level of care for possible cholecystectomy. I was called by Dr. Underwood that I have discussed with Dr. Erick PARDO and discharge plan to discharge the patient to higher level of care. They agreed and they proceed with the process. I had received a call from Dr. Underwood, hospitalist at [facility] and also got a call from Dr. Villegas at [facility] at [facility]. Same day on 03/17/2018 she was accepted and transferred to the [facility] for further intervention. So far, the patient was stable hemodynamically. DISCHARGE CONDITION: Stable. DISCHARGE DIAGNOSES: 1. Cholecystitis, cholelithiasis. 2. Diabetes mellitus type 2. 3. Cardiomyopathy with a low ejection fraction of 10%-15%, status post AICD placement. 4. History of cardiopulmonary arrest. 5. Diabetes mellitus type 2. 6. Hypothyroidism. 7. Acute renal failure and acute kidney injury. Consultations are called from Dr. Clayton and Dr. Liao for Nephrology, Dr. Rockwell for GI and Dr. Dominguez for Surgery and Dr. Hernandez Martinez for Cardiology. DISCHARGE DISPOSITION: The patient was transferred to [facility] under Dr. Villegas. JOB# [id number]
== END 2018-03-17 00:42 | disposition short-term general hospital (02) ==
LOC: ER 12:24 → MSI 16:15 → TELE 03-16 08:15
PROVIDERS: ADMIT Internal Medicine; ATTEND Internal Medicine
PROC: 0W9G3ZZ Drainage of Peritoneal Cavity, Percutaneous Approach (ICD-10-PCS; principal; 2018-03-14)
DX: K80.00 Calculus of gallbladder with acute cholecystitis without obstruction (principal); I50.23 Acute on chronic systolic (congestive) heart failure; E11.22 Type 2 diabetes mellitus with diabetic chronic kidney disease; E87.8 Other disorders of electrolyte and fluid balance, not elsewhere classified; N17.9 Acute kidney failure, unspecified; R18.8 Other ascites; N18.3 Chronic kidney disease, stage 3 (moderate); I42.9 Cardiomyopathy, unspecified; E44.1 Mild protein-calorie malnutrition; K74.60 Unspecified cirrhosis of liver; I13.0 Hypertensive heart and chronic kidney disease with heart failure and stage 1 through stage 4 chronic kidney disease, or unspecified chronic kidney disease; I25.10 Atherosclerotic heart disease of native coronary artery without angina pectoris; F03.90 Unspecified dementia, unspecified severity, without behavioral disturbance, psychotic disturbance, mood disturbance, and anxiety; N39.0 Urinary tract infection, site not specified; E03.9 Hypothyroidism, unspecified; R47.1 Dysarthria and anarthria; Z95.810 Presence of automatic (implantable) cardiac defibrillator; Z68.23 Body mass index [BMI] 23.0-23.9, adult
CPT/HCPCS: 36415-UA; 71045-TC; 76942-TC; 78226-TC; 80048-TC; 80053-TC; 80307; 81001-TC; 82042-TC; 82948-90; 83880-TC; 84132-TC; 84157-TC; 84443-TC; 84484-TC; 84703-TC; 85007-TC; 85025-TC; 85610-TC; 85730-TC; 86703-TC; 87086-90; 89051-TC; A9537; J0696; J1815; J1940; J2185; J7030; Z7610